=== PATIENT | male | born 1990 | race Hispanic/Latino ===

== ENCOUNTER 2017-12-27 14:51 | Emergency (ER) | payer SELFPAY ==
--- NOTE | 2017-12-27 15:53 | RAD REPORT ---
EXAM DESCRIPTION: RAD - Chest Single View - 12/27/2017 3:48 pm CLINICAL HISTORY: Chest pain. COMPARISON: None. FINDINGS: Portable technique limits examination quality. The lungs are grossly clear. The heart is normal in size. No displaced fractures. IMPRESSION: No acute intrathoracic process suspected.
[2017-12-27] MEDS ORDERED: METOCLOPRAMIDE 10 MG/2mL INJ ONE (15:56)
[2017-12-27] MEDS ORDERED: NA CHLORIDE 0.9% 1,000 ML ONE (15:56)
[2017-12-27] MEDS ORDERED: KETOROLAC 30 MG/ML INJ ONE (15:56)
[2017-12-27] MEDS ORDERED: DIPHENHYDRAMINE 50 MG/ML VIAL ONE (15:56)
[2017-12-27 15:59] LABS: Absolute Lymphocytes (CBC) 2.6 K/uL (0.7-4.9); Absolute Monocytes 0.5 K/uL (0.1-1.3); Absolute Neutrophil 2.8 K/uL (1.8-8.0); Basophils % 0.1 % (0-1.3); Hematocrit 36.3 % (39.6-49.0); Lymphocytes % 42.5 % (15.3-44.8); MCH 30.2 pg (27.0-35.0); MCV 89.1 fL (80-100); MPV 9.4 fL (7.6-11.3); Monocytes % 7.7 % (3.3-12.3); RBC Red Blood Cell Count 4.08 M/uL (4.33-5.43)
[2017-12-27 16:01] LABS: Glomerular Filtration Rate > 60 mL/min (>60)
[2017-12-27 16:13] LABS: Bicarbonate 23 mEq/L (21-31); Glucose Level 92 mg/dL (65-120); Lipase 25 U/L (22-51); Potassium 3.8 mEq/L (3.6-5.0); Sodium Level 132 mEq/L (135-145)
[2017-12-27 16:19] LABS: ALT/SGPT 35 IU/L (10-60); AST/SGOT 27 IU/L (10-42); Albumin 3.6 g/dL (3.2-5.5); Alkaline Phosphatase 42 IU/L (42-121); Amylase Level 46 U/L (28-100); BUN Blood Urea Nitrogen 25 mg/dL (6-20); Bilirubin Direct < 0.1 mg/dL (0-0.2); Bilirubin Total 0.5 mg/dL (0.3-1.2); Glomerular Filtration Rate > 90 mL/min (=/>90); Protein, Total 6.5 g/dL (6.0-8.3)
[2017-12-27 16:41] LABS: Urine Bacteria NONE SEEN /HPF (NONE SEEN); Urine Culture Reflex Order NOT NEEDED; Urine Mucus LIGHT /HPF (NONE SEEN); Urine RBC <5 /HPF (NONE SEEN)
--- NOTE | 2017-12-27 16:54 | RAD REPORT ---
EXAM DESCRIPTION: CT - Chest Abdomen Pelvis W Cont - 12/27/2017 4:39 pm CLINICAL HISTORY: Right-sided chest pain, right-sided abdomen pain COMPARISON: None. TECHNIQUE: Following dynamic enhancement using 100 milliliters nonionic IV contrast, axial imaging o f the chest, abdomen and pelvis was performed. Biphasic technique was utilized through the abdomen. Oral contrast was administered. All CT scans are performed using dose optimization technique as appropriate and may include automated exposure control or mA/KV adjustment according to patient size. FINDINGS: Lungs are clear of mass and infiltrate. No pleural effusion, pleural thickening or pneumot horax. No significant aortic or pulmonary arterial tree finding. Mediastinal and hilar regions show n o mass or abnormal lymphadenopathy. No chest wall mass or axillary lymphadenopathy. Liver shows borderline fatty infiltration pattern. No focal liver lesion identifiable. No spleen or p ancreas abnormality. Gallbladder is partially contracted. Gallstones can be occult. No biliary tree d ilatation. Symmetric renal function is seen with no mass or hydronephrosis. No adrenal abnormalities. No dilated bowel loops or focal bowel wall thickening. No acute GI findings seen. Patient has a few s mall subcentimeter mesenteric lymph nodes. Appendix is normal. No urinary bladder abnormality. No acute or destructive bony process. No significant vascular findings. IMPRESSION: CT chest, abdomen and pelvis imaging shows no significant or suspicious finding.
--- NOTE | 2017-12-27 17:44 | ER ---
Nurse's Notes [facility] Name: Neftali Miles Age: 27 yrs Sex: Male : 1990 Arrival Date: 12/27/2017 Time: 14:53 Bed 23 Private MD: Diagnosis: right flank pain;Other abdominal pain Presentation: 12/27 14:57 Presenting complaint: Patient states: right lower back/flank pain since this morning la1 denies N/V/D. Pt states this has been going on, on and off for the last few months. Transition of care: patient was not received from another setting of care. Onset of symptoms was December 27, 2017. Care prior to arrival: None. 14:57 Method Of Arrival: Ambulatory la1 14:57 Acuity: DEVAN 3 la1 Historical: - Allergies: 14:57 No Known Allergies; la1 - PMHx: 14:57 None; la1 - Immunization history:: Adult Immunizations up to date. - Social history:: Smoking status: Patient/guardian denies using tobacco. Screenin:51 Abuse screen: Denies threats or abuse. Denies injuries from another. Nutritional aj screening: No deficits noted. Tuberculosis screening: No symptoms or risk factors identified. Fall Risk None identified. Assessment: 15:51 General: Appears in no apparent distress. comfortable, Behavior is calm, cooperative, aj appropriate for age. Pain: Complains of pain in back and right mid back. Neuro: Level of Consciousness is awake, alert, obeys commands, Oriented to person, place, time, situation. Respiratory: Airway is patent Respiratory effort is even, unlabored, Respiratory pattern is regular, symmetrical. GI: No signs and/or symptoms were reported involving the gastrointestinal system. Abdomen is non-distended, obese. Derm: Skin is intact, is healthy with good turgor, Skin is pink, warm \T\ dry. normal. Musculoskeletal: Circulation, motion, and sensation intact. Range of motion: intact in all extremities, Reports pain in right mid back. 18:29 Reassessment: Patient appears in no apparent distress at this time. No changes from aj previously documented assessment. Patient and/or family updated on plan of care and expected duration. Pain level reassessed. Patient is alert, oriented x 3, equal unlabored respirations, skin warm/dry/pink. Patient states feeling better. Patient states symptoms have improved. Vital Signs: 14:57 BP 124 / 72; Pulse 64; Resp 16; Temp 97.3(TE); Pulse Ox 100% on R/A; Weight 109.32 kg; la1 Height 6 ft. 0 in. (182.88 cm); 15:51 BP 128 / 62; Pulse 50; Resp 16; Pulse Ox 99% on R/A; aj 16:08 BP 132 / 86; Pulse 49; Resp 16; Pulse Ox 99% on R/A; aj 16:19 BP 128 / 59; Pulse 51; Resp 16; Pulse Ox 99% on R/A; aj 17:55 BP 118 / 92; Pulse 54; Resp 16; Pulse Ox 100% on R/A; aj 14:57 Body Mass Index 32.69 (109.32 kg, 182.88 cm) la1 ED Course: 14:53 Patient arrived in ED. tw3 14:57 Triage completed. la1 14:58 Lynda Sow NP is PHCP. 1 14:58 Khris Valles MD is Attending Physician. 1 14:58 Arm band placed on left wrist. la1 15:08 Bren Can, RN is Primary Nurse. aj 15:21 Radiology exam delayed due to lab results not completed at this time. (BUN/Creatinine) jg1 IV insertion attempt and/or patient not having appropriate IV at this time. 15:48 X-ray completed. Portable x-ray completed in exam room. Patient tolerated procedure bb2 well. 15:49 Chest Single View XRAY In Process Unspecified. EDMS 15:51 Patient has correct armband on for positive identification. Placed in gown. Bed in low aj position. Call light in reach. Side rails up X 1. Pulse ox on. NIBP on. 15:51 Inserted saline lock: 20 gauge in right antecubital area, using aseptic technique. aj Blood collected. 16:39 Chest Abdomen Pelvis W Cont In Process Unspecified. EDMS 18:29 No provider procedures requiring assistance completed. IV discontinued, intact, aj bleeding controlled, No redness/swelling at site. Pressure dressing applied. Administered Medications: No medications were administered Outcome: 17:44 Discharge ordered by . 1 18:29 Discharged to home ambulatory. aj 18:29 Condition: good 18:29 Discharge instructions given to patient, Instructed on discharge instructions, follow up and referral plans. Demonstrated understanding of instructions, follow-up care. 18:37 Patient left the ED. jamari Signatures: Dispatcher [employer] EDBren Shukla RN RN aj Garcia, Jessica jg1 Attema, Lee, RN RN la1 Lynda Sow, SENIOR ADULTS DIRECTOR SENIOR ADULTS DIRECTOR rh1 Jose Roberto, Mary tw3 Stacie Wolfe bb2 Corrections: (The following items were deleted from the chart) 14:58 14:57 Presenting complaint: Patient states: right lower back/flank pain since this la1 morning denies N/V/D la1
--- NOTE | 2017-12-27 17:45 | EDPHYS ---
Physician Documentation [facility] Name: Neftali Miles Age: 27 yrs Sex: Male : 1990 Arrival Date: 12/27/2017 Time: 14:53 Bed 23 Private MD: ED Physician Khris Valles HPI: 12/27 15:07 This 27 yrs old Male presents to ER via Ambulatory with complaints of Side rh1 Pain. 15:07 The patient complains of pain in the right mid back. The pain does not radiate. Onset: rh1 The symptoms/episode began/occurred 2 month(s) ago, and became worse today. Modifying factors: The symptoms are alleviated by nothing. the symptoms are aggravated by nothing. Associated signs and symptoms: Pertinent negatives: diarrhea, dizziness, dysuria, fever, urinary frequency, hematuria, nausea, pain radiating to the lower extremities, vomiting. Severity of pain: At its worst the pain was moderate in the emergency department the pain is unchanged. The patient has not experienced similar symptoms in the past. The patient has not recently seen a physician. PT. reports intermittent right flank pain ongoing for the past 2 months, that got worse today while at work. Reports pain increases with deep inspiration, and at times will make him dizzy. Reports no change in pain with movement, foods, denies any N/V/D, fever/chills, coughing, chest pain.. Historical: - Allergies: 14:57 No Known Allergies; la1 - PMHx: 14:57 None; la1 - Immunization history:: Adult Immunizations up to date. - Social history:: Smoking status: Patient/guardian denies using tobacco. ROS: 15:07 Constitutional: Negative for fever, chills rh1 15:07 Cardiovascular: Negative for chest pain, edema, palpitations. 15:07 Respiratory: Negative for cough, shortness of breath, wheezing. 15:07 Abdomen/GI: Negative for abdominal pain, nausea, vomiting, and diarrhea. 15:07 Back: Positive for pain at rest, flank pain, on the right, Negative for decreased range of motion, pain with movement. 15:07 : Negative for urinary symptoms, small amounts, hematuria. 15:07 MS/extremity: Negative for pain, paresthesias. 15:07 Neuro: Negative for altered mental status, dizziness, numbness, tingling, weakness. 15:07 All other systems are negative. Exam: 15:07 Constitutional: This is a well developed, well nourished patient who is awake, alert, rh1 and in no acute distress. Head/Face: Normocephalic, atraumatic. Neck: Trachea midline, and no cervical lymphadenopathy. Supple, full range of motion without nuchal rigidity. No Meningismus. Chest/axilla: Normal chest wall appearance and motion. Nontender with no deformity. No lesions are appreciated. Cardiovascular: Regular rate and rhythm with a normal S1 and S2. No gallops, murmurs, or rubs. No JVD. No pulse deficits. Respiratory: Lungs have equal breath sounds bilaterally, clear to auscultation. No rales, rhonchi or wheezes noted. No increased work of breathing. 15:07 Skin: Warm, dry with normal turgor. Normal color with no rashes, no lesions, and no evidence of cellulitis. MS/ Extremity: Pulses equal, no cyanosis. Neurovascular intact. Full, normal range of motion. 15:07 Abdomen/GI: Inspection: abdomen appears normal, bruising, is not seen, distension, is not seen, Bowel sounds: normal, in all quadrants, active, all quadrants, Palpation: soft, in all quadrants, moderate abdominal tenderness, in the epigastric area, right upper quadrant and left upper quadrant, rebound tenderness, is not appreciated, involuntary guarding, is not appreciated, Indicators: McBurney's point is not tender, Arreola's sign is negative, Rovsing's sign is negative, Liver: no appreciated palpable abnormalities. 15:07 Back: ROM is normal, painless, CVA tenderness, that is moderate, is noted on the right. 15:07 Back: Exam negative for ecchymosis 15:07 Neuro: Orientation: is normal, to person, place \T\ time. Mentation: is normal, lucid, able to follow commands, Motor: is normal, moves all fours, strength is 5/5 in all extremities, Sensation: is normal, no obvious gross deficits, numbness, is not appreciated, tingling, is not appreciated, Gait: is steady, at a normal pace, without difficulty. Vital Signs: 14:57 BP 124 / 72; Pulse 64; Resp 16; Temp 97.3(TE); Pulse Ox 100% on R/A; Weight 109.32 kg; la1 Height 6 ft. 0 in. (182.88 cm); 15:51 BP 128 / 62; Pulse 50; Resp 16; Pulse Ox 99% on R/A; aj 16:08 BP 132 / 86; Pulse 49; Resp 16; Pulse Ox 99% on R/A; aj 16:19 BP 128 / 59; Pulse 51; Resp 16; Pulse Ox 99% on R/A; aj 17:55 BP 118 / 92; Pulse 54; Resp 16; Pulse Ox 100% on R/A; aj 14:57 Body Mass Index 32.69 (109.32 kg, 182.88 cm) la1 MDM: 15:07 Patient medically screened. rh1 17:43 Data reviewed: vital signs, nurses notes, lab test result(s), EKG, radiologic studies, rh1 CT scan, plain films, I have discussed the patient's presentation/case with the attending Emergency Department Physician; and as a result, I will discharge patient. Data interpreted: Pulse oximetry: on room air is 99 %. Interpretation: normal. Counseling: I had a detailed discussion with the patient and/or guardian regarding: the historical points, exam findings, and any diagnostic results supporting the discharge/admit diagnosis, lab results, radiology results, the need for outpatient follow up, a family practitioner, to return to the emergency department if symptoms worsen or persist or if there are any questions or concerns that arise at home. Special discussion: Based on the patient's Hx, exam, and Dx evaluation, there is no indication for emergent surgery or inpatient Tx. It is understood by the patient/guardian that if the Sx's persist or worsen they need to return immediately for re-evaluation. 12/27 15:19 Order name: Amylase, Serum; Complete Time: 16:25 12/27 15:19 Order name: Basic Metabolic Panel; Complete Time: 16:25 12/27 15:19 Order name: CBC with Diff; Complete Time: 16:28 12/27 15:19 Order name: Creatinine for Radiology; Complete Time: 16:04 12/27 15:19 Order name: Hepatic Function; Complete Time: 16:25 12/27 15:19 Order name: Lipase; Complete Time: 16:25 12/27 15:19 Order name: Urine Dipstick-Ancillary (obtain specimen); Complete Time: 16:08 [facility] 12/27 15:19 Order name: Urine Microscopic Only; Complete Time: 16:47 1 12/27 15:19 Order name: Chest Single View XRAY; Complete Time: 15:57 [facility] 12/27 15:56 Order name: Urine Dipstick--Ancillary (enter results); Complete Time: 18:23 mw2 12/27 16:33 Order name: Chest Abdomen Pelvis W Cont; Complete Time: 16:57 EDMS 12/27 17:24 Order name: EKG Electrocardiogram [facility] 12/27 15:19 Order name: IV Saline Lock; Complete Time: 15:53 [facility] 12/27 15:19 Order name: Labs collected and sent; Complete Time: 15:54 [facility] 12/27 15:21 Order name: EKG - Nurse/Tech; Complete Time: 16:19 rh1 Administered Medications: No medications were administered Disposition: 12/27/17 17:44 Discharged to Home. Impression: right flank pain, Other abdominal pain. - Condition is Stable. - Discharge Instructions: Abdominal Pain, Adult, Flank Pain. - Work release form, Medication Reconciliation Form, Thank You Letter, Antibiotic Education, Prescription Opioid Use form. - Follow up: Private Physician; When: 1 - 2 days; Reason: Recheck today's complaints, Continuance of care, Re-evaluation by your physician. Follow up: Emergency Department; When: As needed; Reason: Fever > 102 F, If symptoms return, Trouble breathing, Worsening of condition. - Problem is new. - Symptoms have improved. Addendum: 12/30/2017 07:53 Co-signature as Attending Physician, Khris Valles MD I agree with the assessment and w a plan of care. Signatures: Dispatcher [employer] EDBren Shukla RN RN aj Attema, Lee, RN RN la1 Lynda Sow, RESTAURANT HOSTESS RESTAURANT HOSTESS [facility] Khris Valles MD MD pr Corrections: (The following items were deleted from the chart) 12/27 15:23 15:07 PT. reports intermittent right flank pain ongoing for the past 2 months, that got rh1 worse today while at work. . 1 16:33 15:19 Abdomen Pelvis W Con+CT.RAD.BRZ ordered. EDMS EDMS 16:33 16:26 Thorax W/ Con+CT.RAD.BRZ ordered. EDMS EDMS
[2017-12-27 18:11] LABS: Urine Blood NEGATIVE (NEG); Urine Glucose NEGATIVE (NEG); Urine Protein NEGATIVE (NEG); Urine Specific Gravity >1.030 (1.005-1.030); Urine pH 5.5 (5.0-7.0)
--- NOTE | 2017-12-29 22:42 | EKG ---
Test Date: 2017-12-27 Test Time: 16:14:34 Bpo Specialist: ARM MEASUREMENT RESULTS: Intervals: Rate: 52 MD: 164 QRSD: 90 QT: 470 QTc: 437 Babbitt: P: 52 MD: 164 QRS: 62 T: 35 INTERPRETIVE STATEMENTS: Sinus bradycardia ST elevation, consider early repolarization, pericarditis, or injury T wave abnormality, consider anterior ischemia Abnormal ECG No previous ECG available for comparison Electronically Signed On 12-29-17 22:41:16 CDT by Scott Cabrera
== END 2017-12-27 18:37 | disposition home or self-care (01) ==
LOC: ER 14:51
DX: R10.9 Unspecified abdominal pain (principal)
CPT/HCPCS: 36415; 71045; 71260; 74177; 80048; 80076; 81003; 81015; 82150; 83690; 85025; 93005; 99284; J2765; J7030; Q9967

== ENCOUNTER 2018-07-02 07:43 | Emergency (ER) | payer SELFPAY ==
[2018-07-02 08:15] LABS: Absolute Lymphocytes (CBC) 1.6 K/uL (0.7-4.9); Absolute Monocytes 0.4 K/uL (0.1-1.3); Absolute Neutrophil 3.3 K/uL (1.8-8.0); Basophils % 0.3 % (0-1.3); Eosinophils % 3.7 % (0-4.4); Hematocrit 42.4 % (39.6-49.0); Lymphocytes % 28.5 % (15.3-44.8); MCH 30.4 pg (27.0-35.0); MCV 90.8 fL (80-100); MPV 9.3 fL (7.6-11.3); Monocytes % 7.3 % (3.3-12.3); RBC Red Blood Cell Count 4.67 M/uL (4.33-5.43)
[2018-07-02 08:24] LABS: BUN Blood Urea Nitrogen 20 mg/dL (7-18); Bicarbonate 27 mmol/L (21-32); Glucose Level 113 mg/dL (74-106); Sodium Level 142 mmol/L (136-145)
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
[2018-07-02] MEDS ORDERED: HYDROCODONE/APAP 7.5/325 MG TAB ONE (09:22)
== END 2018-07-02 09:24 | disposition home or self-care (01) ==
LOC: ER 07:43
DX: M25.552 Pain in left hip (principal); M25.551 Pain in right hip; V49.50XA Passenger injured in collision with unspecified motor vehicles in traffic accident, initial encounter
CPT/HCPCS: 36415; 70450; 71260; 72125; 74177; 80048; 85025; Q9967

== ENCOUNTER 2019-11-05 17:02 | Emergency (ER) | payer SELFPAY ==
[2019-11-05 17:50] LABS: Basophils % 0.2 % (0-1.3); Hematocrit 37.6 % (39.6-49.0); Lymphocytes % 34.9 % (15.3-44.8); MPV 8.9 fL (7.6-11.3); RBC Red Blood Cell Count 4.16 M/uL (4.33-5.43)
--- NOTE | 2019-11-05 17:50 | RAD REPORT ---
EXAM DESCRIPTION: CT - Head Brain Wo Cont - 11/05/2019 5:38 pm CLINICAL HISTORY: Pain;Weakness Headache, drowsiness COMPARISON: No comparisons TECHNIQUE: All CT scans are performed using dose optimization technique as appropriate and may inclu de automated exposure control or mA/KV adjustment according to patient size. FINDINGS: No intracranial hemorrhage, hydrocephalus or extra-axial fluid collection.No areas of brai n edema or evidence of midline shift. The paranasal sinuses and mastoids are clear. The calvarium is intact. IMPRESSION: No acute intracranial abnormality.
[2019-11-05 17:51] LABS: Protime INR 1.07
--- NOTE | 2019-11-05 18:01 | RAD REPORT ---
EXAM DESCRIPTION: RAD - Chest Single View - 11/05/2019 5:54 pm CLINICAL HISTORY: Chest pain;Dyspnea Chest pain. COMPARISON: Chest Single View dated 12/27/2017 FINDINGS: Portable technique limits examination quality. The lungs are grossly clear. The heart is normal in size. No displaced fractures. IMPRESSION: No acute intrathoracic process suspected.
[2019-11-05 18:05] LABS: ALT/SGPT 73 U/L (12-78); AST/SGOT 33 U/L (15-37); Albumin 2.9 g/dL (3.4-5.0); Alkaline Phosphatase 49 U/L (45-117); BUN Blood Urea Nitrogen 20 mg/dL (7-18); Bicarbonate 24 mmol/L (21-32); Bilirubin Direct 0.2 mg/dL (0-0.2); Bilirubin Total 0.5 mg/dL (0.2-1.0); Creatine Phosphokinase 153 U/L (39-308); Glucose Level 107 mg/dL (74-106); NT PRO-BNP 91 pg/mL (<125); Potassium 3.8 mmol/L (3.5-5.1); Protein, Total 6.9 g/dL (6.4-8.2); Sodium Level 142 mmol/L (136-145); Troponin (Emerg Dept Use Only) < 0.02 ng/mL (0.0-0.045)
[2019-11-05] MEDS ORDERED: NA CHLORIDE 0.9% 1,000 ML ONE (18:26)
--- NOTE | 2019-11-05 18:53 | EDPHYS ---
Physician Documentation [facility] Name: Neftali Miles Age: 29 yrs Sex: Male : 1990 Arrival Date: 11/05/2019 Time: 17:05 Bed 26 Private MD: ED Physician Alessandro Leon HPI: 11/05 17:48 This 29 yrs old Male presents to ER via Ambulatory with complaints of Right jr8 side body pain. 18:03 Patient stated that he started to have acute onset of right sided body pain. 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 Severity of symptoms: At their worst the symptoms were moderate in the emergency department the symptoms are unchanged. The patient has not experienced similar symptoms in the past. The patient has not recently seen a physician. Historical: - Allergies: 17:10 No Known Allergies; tw2 - Home Meds: 17:10 None [Active]; tw2 - PMHx: 17:10 None; tw2 - PSHx: 17:10 None; tw2 - Immunization history:: Adult Immunizations. - Coronavirus screen:: The patient HAS traveled to [place] in the past 14 days. The patient does NOT have a fever and/or cough. Proceed with normal triage procedures. went to [facility]. - Social history:: Smoking status: Patient denies any tobacco usage or history of. - Ebola Screening: : Patient denies travel to an Ebola-affected area in the 21 days before illness onset. ROS: 18:03 Eyes: Negative for injury, pain, redness, and discharge, ENT: Negative for injury, jr8 pain, and discharge, Neck: Negative for injury, pain, and swelling, Cardiovascular: Negative for chest pain, palpitations, and edema, Respiratory: Negative for shortness of breath, cough, wheezing, and pleuritic chest pain, Abdomen/GI: Negative for abdominal pain, nausea, vomiting, diarrhea, and constipation, Back: Negative for injury and pain, Skin: Negative for injury, rash, and discoloration. 18:03 Neuro: Negative for headache, weakness, numbness, tingling, and seizure. 18:03 MS/extremity: Positive for pain, of the right hand, right arm and right leg. Exam: 18:06 Head/Face: Normocephalic, atraumatic. Eyes: Pupils equal round and reactive to light, jr8 extra-ocular motions intact. Lids and lashes normal. Conjunctiva and sclera are non-icteric and not injected. Cornea within normal limits. Periorbital areas with no swelling, redness, or edema. ENT: Nares patent. No nasal discharge, no septal abnormalities noted. Tympanic membranes are normal and external auditory canals are clear. Oropharynx with no redness, swelling, or masses, exudates, or evidence of obstruction, uvula midline. Mucous membranes moist. Neck: Trachea midline, no thyromegaly or masses palpated, and no cervical lymphadenopathy. Supple, full range of motion without nuchal rigidity, or vertebral point tenderness. No Meningismus. Chest/axilla: Normal chest wall appearance and motion. Nontender with no deformity. No lesions are appreciated. Cardiovascular: Regular rate and rhythm with a normal S1 and S2. No gallops, murmurs, or rubs. Normal PMI, no JVD. No pulse deficits. Respiratory: Lungs have equal breath sounds bilaterally, clear to auscultation and percussion. No rales, rhonchi or wheezes noted. No increased work of breathing, no retractions or nasal flaring. Abdomen/GI: Soft, non-tender, with normal bowel sounds. No distension or tympany. No guarding or rebound. No evidence of tenderness throughout. Back: No spinal tenderness. No costovertebral tenderness. Full range of motion. Skin: Warm, dry with normal turgor. Normal color with no rashes, no lesions, and no evidence of cellulitis. Neuro: Awake and alert, GCS 15, oriented to person, place, time, and situation. Cranial nerves II-XII grossly intact. Motor strength 5/5 in all extremities. Sensory grossly intact. Cerebellar exam normal. Normal gait. 18:06 Musculoskeletal/extremity: Extremities: grossly normal except: noted in the right arm: pain, tenderness, noted in the right leg: pain, tenderness, ROM: no acute changes, intact in all extremities, full active range of motion, full passive range of motion, Circulation is intact in all extremities. Pulses: noted to be 2+ in the right radial artery, right femoral artery, right dorsalis pedis artery, left radial artery, left femoral artery and left dorsalis pedis artery, Sensation intact. 18:10 ECG was reviewed by the Attending Physician. jr8 Vital Signs: 17:11 BP 124 / 88; Pulse 88; Resp 17; Temp 97.6(TE); Pulse Ox 98% on R/A; Weight 113.4 kg tw2 (R); Height 6 ft. 1 in. (185.42 cm); Pain 5/10; 18:00 BP 116 / 78; Pulse 71; Resp 17; Pulse Ox 100% on R/A; mg2 19:21 BP 115 / 78; Pulse 80; Resp 18; Temp 98; Pulse Ox 100% on R/A; mg2 17:11 Body Mass Index 32.98 (113.40 kg, 185.42 cm) tw2 MDM: 17:13 Patient medically screened. jr8 18:49 Data reviewed: vital signs, nurses notes, lab test result(s), EKG, radiologic studies, jr8 CT scan, plain films. Data interpreted: Pulse oximetry: on room air is 98 %. Interpretation: normal. Counseling: I had a detailed discussion with the patient and/or guardian regarding: the historical points, exam findings, and any diagnostic results supporting the discharge/admit diagnosis, lab results, radiology results, the need for outpatient follow up, a family practitioner, to return to the emergency department if symptoms worsen or persist or if there are any questions or concerns that arise at home. Response to treatment: the patient's symptoms have mildly improved after treatment. ED course: No abnormal CT, lab, or ECG findings. VS stable. Most likely fatigue secondary to over exertion at work. Recommended few days of rest with continued hydration. If other symptoms were to arise or he was feeling worse. To come back to ED immediately . 11/05 17:25 Order name: Basic Metabolic Panel; Complete Time: 18:11/05 17:25 Order name: CBC with Diff; Complete Time: 18:11/05 17:25 Order name: LFT's; Complete Time: 18:11/05 17:25 Order name: Magnesium; Complete Time: 18:11/05 17:25 Order name: NT PRO-BNP; Complete Time: 18:11/05 17:25 Order name: PT-INR; Complete Time: 18:11/05 17:25 Order name: Troponin (emerg Dept Use Only); Complete Time: 18:11/05 17:25 Order name: XRAY Chest (1 view); Complete Time: 19:11/05 17:25 Order name: EKG; Complete Time: 17:11/05 17:25 Order name: Cardiac monitoring; Complete Time: :11/05 17:25 Order name: EKG - Nurse/Tech; Complete Time: 18:11/05 17:25 Order name: CK; Complete Time: 18:11/05 17:25 Order name: CT Head Brain wo Cont; Complete Time: 19:11/05 17:25 Order name: IV Saline Lock; Complete Time: :39 11/05 17:25 Order name: Labs collected and sent; Complete Time: 17:37 11/05 17:25 Order name: O2 Per Protocol; Complete Time: :11/05 17:25 Order name: O2 Sat Monitoring; Complete Time: : EC:10 Rate is 63 beats/min. Rhythm is regular, Normal Sinus Rhythm. QRS [place] is Normal. [place] jr8 interval is normal at 166 msec. QRS interval is normal at 90 msec. QT interval is normal at 442 msec. No Q waves. T waves are Inverted in lead V1. T waves are Flattened in leads II, V2, V3. No ST changes noted. Clinical impression: NSR w/ Non-specific ST/T Changes and No evidence of ischemia. Interpreted by me. Reviewed by me. Administered Medications: 18:17 Drug: NS 0.9% 1000 ml Route: IV; Rate: 1000 ml; Site: left forearm; mg2 19:21 Follow up: Response: No adverse reaction; IV Status: Completed infusion; IV Intake: mg2 1000ml Disposition: 11/06 07:08 Co-signature as Attending Physician, Alessandro Leon MD I agree with the assessment and kdr plan of care. Disposition: 11/05/19 18:52 Discharged to Home. Impression: Dehydration, Pain in arm, unspecified, Pain in right lower leg. - Condition is Stable. - Discharge Instructions: Dehydration, Adult, Musculoskeletal Pain. - Prescriptions for Ibuprofen 800 mg Oral Tablet - take 1 tablet by ORAL route every 12 hours As needed take with food; 20 tablet. - Medication Reconciliation Form, Thank You Letter, Antibiotic Education, Prescription Opioid Use, Work release form form. - Follow up: Private Physician; When: 2 - 3 days; Reason: Recheck today's complaints, Continuance of care, Re-evaluation by your physician. - Problem is new. - Symptoms have improved. Signatures: Dispatcher [employer] EDMS Alessandro Leon MD MD kdr Ron Frances PA PA jr8 Leila Ly RN RN tw2 Lars Joe RN RN mg2 Corrections: (The following items were deleted from the chart) 11/05 19:23 18:52 11/05/2019 18:52 Discharged to Home. Impression: Dehydration; Pain in arm, mg2 unspecified; Pain in right lower leg. Condition is Stable. Forms are Medication Reconciliation Form, Thank You Letter, Antibiotic Education, Prescription Opioid Use. Follow up: Private Physician; When: 2 - 3 days; Reason: Recheck today's complaints, Continuance of care, Re-evaluation by your physician. Problem is new. Symptoms have improved. jr8
--- NOTE | 2019-11-05 18:53 | ER ---
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 Presenting complaint: Patient states: also my right ear hurts and the right side of my head i have shortness of breath just putting on my clothes and that hasnt happened. Transition of care: patient was not received from another setting of care. Onset of symptoms was November 05, 2019. Risk Assessment: Do you want to hurt yourself or someone else? Patient reports no desire to harm self or others. Initial Sepsis Screen: Does the patient meet any 2 criteria? No. Patient's initial sepsis screen is negative. Does the patient have a suspected source of infection? No. Patient's initial sepsis screen is negative. Care prior to arrival: None. 17:08 Method Of Arrival: Ambulatory tw2 17:08 Acuity: DEVAN 3 mg2 Triage Assessment: 17:11 General: Appears in no apparent distress. obese, Behavior is calm, cooperative, tw2 appropriate for age. Pain: Complains of pain in right side of body. Historical: - Allergies: 17:10 No Known Allergies; tw2 - Home Meds: 17:10 None [Active]; tw2 - PMHx: 17:10 None; tw2 - PSHx: 17:10 None; tw2 - Immunization history:: Adult Immunizations. - Coronavirus screen:: The patient HAS traveled to [place] in the past 14 days. The patient does NOT have a fever and/or cough. Proceed with normal triage procedures. went to [facility]. - Social history:: Smoking status: Patient denies any tobacco usage or history of. - Ebola Screening: : Patient denies travel to an Ebola-affected area in the 21 days before illness onset. Screenin:43 Abuse screen: Denies threats or abuse. Denies injuries from another. Nutritional mg2 screening: No deficits noted. Tuberculosis screening: No symptoms or risk factors identified. Fall Risk IV access (20 points). Assessment: 17:44 General: Appears in no apparent distress. comfortable, Behavior is calm, cooperative. mg2 Pain: Complains of pain in right side of the body. Neuro: Level of Consciousness is awake, alert, obeys commands, Oriented to person, place, time, situation. Cardiovascular: Capillary refill < 3 seconds Patient's skin is warm and dry. Respiratory: Airway is patent Respiratory effort is even, unlabored, Respiratory pattern is regular, symmetrical. GI: No signs and/or symptoms were reported involving the gastrointestinal system. : No signs and/or symptoms were reported regarding the genitourinary system. EENT: No signs and/or symptoms were reported regarding the EENT system. Derm: Skin is intact, is healthy with good turgor, Skin is pink, warm \T\ dry. normal. Musculoskeletal: Circulation, motion, and sensation intact. Capillary refill < 3 seconds. Vital Signs: 17:11 BP 124 / 88; Pulse 88; Resp 17; Temp 97.6(TE); Pulse Ox 98% on R/A; Weight 113.4 kg tw2 (R); Height 6 ft. 1 in. (185.42 cm); Pain 5/10; 18:00 BP 116 / 78; Pulse 71; Resp 17; Pulse Ox 100% on R/A; mg2 19:21 BP 115 / 78; Pulse 80; Resp 18; Temp 98; Pulse Ox 100% on R/A; mg2 17:11 Body Mass Index 32.98 (113.40 kg, 185.42 cm) tw2 ED Course: 17:05 Patient arrived in ED. mr 17:09 Triage completed. tw2 17:10 Arm band placed on. tw2 17:12 Ron Frances PA is PHCP. jr8 17:12 Alessandro Leon MD is Attending Physician. jr8 17:23 Lars Joe, TRAVIS is Primary Nurse. mg2 17:41 CT Head Brain wo Cont In Process Unspecified. EDMS 17:43 No provider procedures requiring assistance completed. Inserted saline lock: 20 gauge mg2 in left forearm, using aseptic technique. Blood collected. 17:44 Patient has correct armband on for positive identification. mg2 17:55 XRAY Chest (1 view) In Process Unspecified. EDMS 19:23 IV discontinued, intact, bleeding controlled, No redness/swelling at site. Pressure mg2 dressing applied. Administered Medications: 18:17 Drug: NS 0.9% 1000 ml Route: IV; Rate: 1000 ml; Site: left forearm; mg2 19:21 Follow up: Response: No adverse reaction; IV Status: Completed infusion; IV Intake: mg2 1000ml Intake: 19:21 IV: 1000ml; Total: 1000ml. mg2 Outcome: 18:52 Discharge ordered by MD. barker 19:22 Discharged to home ambulatory, with family. mg2 19:22 Condition: stable 19:22 Discharge instructions given to patient, family, Instructed on discharge instructions, follow up and referral plans. medication usage, Demonstrated understanding of instructions, follow-up care, medications, Prescriptions given X 1. 19:23 Patient left the ED. mg2 Signatures: Dispatcher [employer] EDMS Mirta Beltran mr Juan DanielRon PA PA jr8 Leila Ly RN RN tw2 Lars Joe RN RN mg2 Corrections: (The following items were deleted from the chart) 17:24 17:08 Acuity: DEVAN 4 tw2 mg2
[2019-11-05 19:30] VITALS: O2SAT 100
[2019-11-05 19:32] VITALS: BP 115/78; TEMP 98
--- NOTE | 2019-11-06 07:51 | EKG ---
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
== END 2019-11-05 19:23 | disposition home or self-care (01) ==
LOC: ER 17:02
DX: E86.0 Dehydration (principal); M79.661 Pain in right lower leg
CPT/HCPCS: 36415; 70450; 71045; 80048; 80076; 82550; 83735; 83880; 84484; 85025; 85610; 93005; 96360; 99284; J7030

== ENCOUNTER 2024-06-28 22:38 | Observation (INO) | payer OTHER, SELFPAY ==
[2024-06-28] MEDS ORDERED: ONDANSETRON 4 MG/2 ML VIAL ONE (23:27)
[2024-06-28] MEDS ORDERED: MORPHINE 4 MG/ML SYR ONE (23:28)
[2024-06-28] MEDS ORDERED: NA CHLORIDE 0.9% 100 ML ONE (23:28)
[2024-06-28] MEDS ORDERED: PIPERACIL/TAZO 3.375 GM VIAL IV ONE (23:28)
[2024-06-28] MEDS ORDERED: FAMOTIDINE 20 MG/2 ML VIAL IV ONE (23:28)
[2024-06-28] MEDS ORDERED: NA CHLORIDE 0.9% 1,000 ML ONE (23:29)
[2024-06-28 23:30] LABS: Absolute Basophils 0.1 K/uL (0-0.5); Absolute Eosinophils 0.3 K/uL (0-0.5); Absolute Lymphocytes (CBC) 3.3 K/uL (0.7-4.9); Absolute Monocytes 0.7 K/uL (0.1-1.3); Absolute Neutrophil 7.3 K/uL (1.8-8.0); Basophils % 0.7 % (0-1.3); Eosinophils % 2.4 % (0-4.4); Hematocrit 37.7 % (39.6-49.0); Hemoglobin 12.2 g/dL (13.6-17.9); Lymphocytes % 28.6 % (15.3-44.8); MCHC 32.5 g/dL (32.0-36.0); MCV 92.3 fL (80-100); MPV 9.1 fL (7.6-11.3); Monocytes % 5.9 % (3.3-12.3); Neutrophils % 62.4 % (41.7-73.7); Platelets 289 thou/uL (152-406); RBC Red Blood Cell Count 4.08 M/uL (4.33-5.43); Red Cell Distribution Width 14.1 % (12.1-15.2)
[2024-06-28 23:31] LABS: PT Prothrombin Time 11.9 SECONDS (9.4-12.5); Protime INR 1.06
[2024-06-28 23:43] LABS: Albumin 2.8 g/dL (3.4-5.0); Albumin/Globulin Ratio 0.6 (1.1-1.8); Anion Gap 7.2 mEq/L (5.0-15.0); Bilirubin Total 0.2 mg/dL (0.2-1.0); Globulin 4.9 g/dL (2.3-3.5); Potassium 4.2 mEq/L (3.5-5.1); Protein, Total 7.7 g/dL (6.4-8.2)
--- NOTE | 2024-06-29 00:19 | RAD REPORT ---
CLINICAL HISTORY: Abdominal pain. COMPARISON: None. TECHNIQUE: US ABDOMEN LIMITED 06/28/2024 10:54 PM CDT FINDINGS: Liver is echogenic. Gallbladder contains a gallstone at the neck. There is no wall thickening or mary cholecystic fluid. Common bile duct measures 4 mm. IMPRESSION: Cholelithiasis. Electronically signed by: Pedro Palm MD 06/29/2024 12:14 AM CDT RP Due to temporary technical issues with the PACS/eRelyxibSococo reporting system, reports are being signed by the in-house radiologist without review as a courtesy to ensure prompt reporting the interpreting radiologist is fully responsible for the content of the report. Transcribed Date/Time: 06/29/2024 12:20 AM
--- NOTE | 2024-06-29 00:28 | ER ---
Nurse's Notes [facility] Name: Neftali Miles Age: 33 yrs Sex: Male : 1990 Arrival Date: 06/28/2024 Time: 22:38 Bed 14 Private MD: Diagnosis: Other cholelithiasis with obstruction-stone in the neck;Acute cholecystitis;Elevated white blood cell count;Hyperglycemia, unspecified;Obesity, unspecified Presentation: 06/28 22:51 Chief complaint: Patient states: RUQ abdominal pain onset 6hrs ago. Pt reports nausea cm10 and vomiting. Pt states that the pain is worse when laying on his back. Coronavirus screen: Client denies travel out of the [place] in the last 14 days. Ebola Screen: Patient denies travel to an Ebola-affected area in the 21 days before illness onset. No symptoms or risks identified at this time. Initial Sepsis Screen: Does the patient meet any 2 criteria? No. Patient's initial sepsis screen is negative. Does the patient have a suspected source of infection? No. Patient's initial sepsis screen is negative. Risk Assessment: Do you want to hurt yourself or someone else? Patient reports no desire to harm self or others. Onset of symptoms was June 28, 2024. 22:51 Method Of Arrival: Wheelchair cm10 22:51 Acuity: DEVAN 3 cm10 Triage Assessment: 22:53 General: Appears in no apparent distress. uncomfortable, Behavior is cooperative. Pain: cm10 Complains of pain in right upper quadrant Pain currently is 10 out of 10 on a pain scale. Neuro: No deficits noted. Level of Consciousness is awake, alert, obeys commands, Oriented to person, place, time, situation, Appropriate for age. Respiratory: No deficits noted. Airway is patent Respiratory effort is even, unlabored, Respiratory pattern is regular, symmetrical. Historical: - Allergies: 22:52 No Known Allergies; cm10 - PMHx: 22:52 Fatty liver; Pre-Diabetic; cm10 - Immunization history:: Adult Immunizations up to date. - Infectious Disease History:: Denies. - Social history:: Smoking status: Patient denies any tobacco usage or history of. - Family history:: not pertinent. Screenin:00 [facility] ED Fall Risk Assessment (Adult) History of falling in the last 3 months, kj2 including since admission No falls in past 3 months (0 pts) Confusion or Disorientation No (0 pts) Intoxicated or Sedated No (0 pts) Impaired Gait No (0 pts) Mobility Assist Device Used No (0 pt) Altered Elimination No (0 pt) Score/Fall Risk Level 0 - 2 = Low Risk. Abuse screen: Denies threats or abuse. Denies injuries from another. Nutritional screening: No deficits noted. Tuberculosis screening: No symptoms or risk factors identified. Assessment: 23:00 General: Appears uncomfortable, Behavior is cooperative. Pain: Complains of pain in kj2 abdomen and right upper quadrant Pain currently is 10 out of 10 on a pain scale. Neuro: Level of Consciousness is awake, alert, obeys commands. Cardiovascular: Patient's skin is warm and dry. Respiratory: Airway is patent Respiratory effort is even, unlabored. GI: Reports nausea, vomiting, since 30 minutes ago. : No signs and/or symptoms were reported regarding the genitourinary system. 06/29 01:45 GI: Bowel sounds present X 4 quads. Abdomen is tender to palpation in right upper kj2 quadrant. Vital Signs: 06/28 22:51 BP 100 / 44; Pulse 65; Resp 18; Temp 97.2(O); Pulse Ox 99% on R/A; Weight 140.61 kg; cm10 Height 5 ft. 11 in. ; Pain 06/25; 23:40 BP 111 / 77; Pulse 67; Resp 18; Pulse Ox 100% on R/A; kj2 06/29 00:45 BP 114 / 80; Pulse 62; Resp 18; Pulse Ox 100% on R/A; kj2 01:44 BP 112 / 78; Pulse 64; Resp 18; Temp 98.2; Pulse Ox 100% on R/A; kj2 06/28 22:51 Body Mass Index 43.24 (140.61 kg, 180.34 cm) cm10 06/28 22:51 Pain Scale: Adult cm10 ED Course: 06/28 22:51 Patient arrived in ED. cm10 22:52 Cam Arellano MD is Attending Physician. [facility] 22:52 Triage completed. cm10 22:53 Arm band placed on right wrist. Patient placed in an exam room, on a stretcher. cm10 23:00 Neelam Hsieh, TRAVIS is Primary Nurse. kj2 23:00 Patient has correct armband on for positive identification. Bed in low position. Call kj2 light in reach. Adult w/ patient. Provided Education on: call light. 23:00 Inserted saline lock: 20 gauge in right antecubital area, using aseptic technique. kj2 Blood collected. Flushed with 10 mL NS. 23:47 US Abdomen Limited In Process Unspecified. EDMS 23:52 No provider procedures requiring assistance completed. kj2 06/29 00:16 CT Abd/Pelvis - IV Contrast Only In Process Unspecified. EDMS 00:23 Prince Gilbert MD is Hospitalizing Provider. [facility] 00:30 EKG done, by ED staff, reviewed by Cam Arellano MD. kj2 01:45 Patient admitted, IV remains in place. kj2 Administered Medications: 06/28 23:30 Drug: Ondansetron IVP 4 mg IVP once; over 2 minutes Route: IVP; Site: right antecubital;kj2 06/29 00:47 Follow up: Response: No adverse reaction; Nausea is decreased kj2 06/28 23:32 Drug: morphine IVP or IV 4 mg IVP once over 4 mins Route: IVP; Infused Over: 4 mins; kj2 Site: right antecubital; 06/29 00:47 Follow up: Response: No adverse reaction; Pain is decreased kj2 06/28 23:35 Drug: Famotidine IVP 20 mg IVP once; dilute with 10 mL 0.9% NaCl; give over 2 minutes kj2 Route: IVP; Site: right antecubital; 06/29 00:46 Follow up: Response: No adverse reaction kj2 06/28 23:35 Drug: NS 0.9% IV 1000 ml IV at 1 bolus Per protocol; to be given as a bolus over 60 kj2 minutes Route: IV; Rate: 1 bolus; Site: right antecubital; 06/29 00:48 Follow up: Response: No adverse reaction; IV Status: Completed infusion; IV Intake: kj2 1000ml 06/28 23:42 Drug: Piperacillin-Tazobactam IVPB 3.375 grams IVPB once over 60 mins; (mix in NS 100 kj2 mL) Route: IVPB; Infused Over: 60 mins; Site: right antecubital; 06/29 00:46 Follow up: Response: No adverse reaction; IV Status: Completed infusion; IV Intake: kj2 100ml Medication: 06/28 23:54 VIS not applicable for this client. kj2 Intake: 06/29 00:46 IV: 100ml; Total: 100ml. kj2 00:48 IV: 1000ml; Total: 1100ml. kj2 Outcome: 00:28 Decision to Hospitalize by Provider. gonzalo 01:45 Admitted to Med/surg accompanied by tech, via stretcher, room 230, kj2 01:45 Condition: stable 01:45 Instructed on the need for admit, 01:47 Patient left the ED. kj2 Signatures: Dispatcher [employer] EDCam Mahan MD MD cha Martinez, Clarissa RN RN cm10 Neelam Hsieh, RN RN kj2 Corrections: (The following items were deleted from the chart) 06/28 22:53 22:52 Allergies: Aspirin; cm10 cm10
--- NOTE | 2024-06-29 00:28 | EDPHYS ---
Physician Documentation [facility] Name: Neftali Miles Age: 33 yrs Sex: Male : 1990 Arrival Date: 06/28/2024 Time: 22:38 Bed 14 Private MD: ED Physician Cam Arellano HPI: 06/28 22:55 This 33 yrs old Male presents to ER via Wheelchair with complaints of gonzalo Abdominal Pain. 22:55 The patient presents with abdominal pain in the epigastric area, in the upper abdomen. gonzalo Onset: The symptoms/episode began/occurred just prior to arrival. The symptoms do not radiate. Associated signs and symptoms: Pertinent positives: nausea and vomiting. Modifying factors: The symptoms are alleviated by nothing, the symptoms are aggravated by food. Severity of pain: At its worst the pain was moderate severe in the emergency department the pain is unchanged. The patient has not experienced similar symptoms in the past. Historical: - Allergies: 22:52 No Known Allergies; cm10 - PMHx: 22:52 Fatty liver; Pre-Diabetic; cm10 - Immunization history:: Adult Immunizations up to date. - Infectious Disease History:: Denies. - Social history:: Smoking status: Patient denies any tobacco usage or history of. - Family history:: not pertinent. ROS: 22:55 Constitutional: Negative for fever, chills, and weight loss, Eyes: Negative for injury, gonzalo pain, redness, and discharge, ENT: Negative for injury, pain, and discharge, Neck: Negative for injury, pain, and swelling, Cardiovascular: Negative for chest pain, palpitations, and edema, Respiratory: Negative for shortness of breath, cough, wheezing, and pleuritic chest pain, Back: Negative for injury and pain, : Negative for injury, bleeding, discharge, and swelling, MS/Extremity: Negative for injury and deformity, Skin: Negative for injury, rash, and discoloration, Neuro: Negative for headache, weakness, numbness, tingling, and seizure, Psych: Negative for depression, anxiety, suicide ideation, homicidal ideation, and hallucinations, Allergy/Immunology: Negative for hives, rash, and allergies, Endocrine: Negative for neck swelling, polydipsia, polyuria, polyphagia, and marked weight changes, Hematologic/Lymphatic: Negative for swollen nodes, abnormal bleeding, and unusual bruising, 22:55 Abdomen/GI: Positive for abdominal pain, of the epigastric area, right upper quadrant and left upper quadrant, Exam: 22:55 Constitutional: This is a well developed, well nourished patient who is awake, alert, gnozalo and in no acute distress. Head/Face: Normocephalic, atraumatic. Eyes: Pupils equal round and reactive to light, extra-ocular motions intact. Lids and lashes normal. Conjunctiva and sclera are non-icteric and not injected. Cornea within normal limits. Periorbital areas with no swelling, redness, or edema. ENT: Nares patent. No nasal discharge, no septal abnormalities noted. Tympanic membranes are normal and external auditory canals are clear. Oropharynx with no redness, swelling, or masses, exudates, or evidence of obstruction, uvula midline. Mucous membranes moist. Neck: Trachea midline, no thyromegaly or masses palpated, and no cervical lymphadenopathy. Supple, full range of motion without nuchal rigidity, or vertebral point tenderness. No Meningismus. Chest/axilla: Normal chest wall appearance and motion. Nontender with no deformity. No lesions are appreciated. Cardiovascular: Regular rate and rhythm with a normal S1 and S2. No gallops, murmurs, or rubs. Normal PMI, no JVD. No pulse deficits. Respiratory: Lungs have equal breath sounds bilaterally, clear to auscultation and percussion. No rales, rhonchi or wheezes noted. No increased work of breathing, no retractions or nasal flaring. Back: No spinal tenderness. No costovertebral tenderness. Full range of motion. Male : Normal genitalia with no discharge or lesions. Skin: Warm, dry with normal turgor. Normal color with no rashes, no lesions, and no evidence of cellulitis. MS/ Extremity: Pulses equal, no cyanosis. Neurovascular intact. Full, normal range of motion. Neuro: Awake and alert, GCS 15, oriented to person, place, time, and situation. Cranial nerves II-XII grossly intact. Motor strength 5/5 in all extremities. Sensory grossly intact. Cerebellar exam normal. Normal gait. Psych: Awake, alert, with orientation to person, place and time. Behavior, mood, and affect are within normal limits. 22:55 Abdomen/GI: Inspection: distension, Bowel sounds: normal, Palpation: abdomen is soft and non-tender, Liver: no appreciated palpable abnormalities, Hernia: not appreciated, Vital Signs: 22:51 BP 100 / 44; Pulse 65; Resp 18; Temp 97.2(O); Pulse Ox 99% on R/A; Weight 140.61 kg; cm10 Height 5 ft. 11 in. ; Pain 06/25; 23:40 BP 111 / 77; Pulse 67; Resp 18; Pulse Ox 100% on R/A; kj2 06/29 00:45 BP 114 / 80; Pulse 62; Resp 18; Pulse Ox 100% on R/A; kj2 01:44 BP 112 / 78; Pulse 64; Resp 18; Temp 98.2; Pulse Ox 100% on R/A; kj2 06/28 22:51 Body Mass Index 43.24 (140.61 kg, 180.34 cm) cm10 06/28 22:51 Pain Scale: Adult cm10 MDM: 06/28 22:52 Patient medically screened. gonzalo 23:00 Differential diagnosis: cholecystitis, Cholelithiasis, diverticulitis, gastritis, gonzalo gastroesophageal reflux disease, GI Bleed, Hepatitis. Data reviewed: vital signs, nurses notes, lab test result(s), EKG, radiologic studies, CT scan, plain films, ultrasound. Consideration of Admission/Observation Patient was admitted/placed on observation. Escalation of care including admission/observation considered. I considered the following discharge prescriptions or medication management in the emergency department Medications were administered in the Emergency Department. See MAR. Independent interpretation of the following test(s) in the Emergency Department EKG: See my EKG interpretation above. Test considered but Not performed: MRI: no mrcp. Historians other than the Patient: Spouse/Significant Other: well informed. Care significantly affected by the following chronic conditions: Diabetes, Obesity. 06/28 22:54 Order name: CBC with Diff; Complete Time: 23:45 gonzalo 06/28 22:54 Order name: CMP; Complete Time: 23:45 gonzalo 06/28 22:54 Order name: Lipase; Complete Time: 23:45 gonzalo 06/28 23:00 Order name: PT-INR; Complete Time: 23:45 gonzalo 06/29 00:43 Order name: Magnesium EDMS 06/29 00:43 Order name: Phosphorus EDMS 06/29 00:43 Order name: Urinalysis w/ reflexes EDMS 06/28 22:54 Order name: CT Abd/Pelvis - IV Contrast Only [facility] 06/28 22:54 Order name: US Abdomen Limited [facility] 06/28 23:00 Order name: EKG; Complete Time: 23:00 [facility] 06/29 00:43 Order name: CONS Physician Consult [facility] 06/28 22:54 Order name: IV Saline Lock; Complete Time: 23:37 [facility] 06/28 22:54 Order name: Labs collected and sent; Complete Time: 23:37 [facility] 06/28 23:00 Order name: EKG - Nurse/Tech; Complete Time: 00:46 [facility] Administered Medications: 23:30 Drug: Ondansetron IVP 4 mg IVP once; over 2 minutes Route: IVP; Site: right antecubital;kj2 06/29 00:47 Follow up: Response: No adverse reaction; Nausea is decreased [facility] 06/28 23:32 Drug: morphine IVP or IV 4 mg IVP once over 4 mins Route: IVP; Infused Over: 4 mins; kj2 Site: right antecubital; 06/29 00:47 Follow up: Response: No adverse reaction; Pain is decreased [facility] 06/28 23:35 Drug: Famotidine IVP 20 mg IVP once; dilute with 10 mL 0.9% NaCl; give over 2 minutes kj2 Route: IVP; Site: right antecubital; 06/29 00:46 Follow up: Response: No adverse reaction [facility] 06/28 23:35 Drug: NS 0.9% IV 1000 ml IV at 1 bolus Per protocol; to be given as a bolus over 60 kj2 minutes Route: IV; Rate: 1 bolus; Site: right antecubital; 06/29 00:48 Follow up: Response: No adverse reaction; IV Status: Completed infusion; IV Intake: kj2 1000ml 06/28 23:42 Drug: Piperacillin-Tazobactam IVPB 3.375 grams IVPB once over 60 mins; (mix in NS 100 kj2 mL) Route: IVPB; Infused Over: 60 mins; Site: right antecubital; 06/29 00:46 Follow up: Response: No adverse reaction; IV Status: Completed infusion; IV Intake: kj2 100ml Disposition Summary: 06/29/24 00:28 Hospitalization Ordered Notes: Hospitalization Status: Observation [facility] Provider: [place], [place] gonzalo Location: Telemetry/MedSurg (observation) gonzalo Condition: Fair gonzalo Problem: new gonzalo Symptoms: have improved gonzalo Bed/Room Type: Standard [facility] Room Assignment: 218(06/29/24 01:17) kl Diagnosis - Other cholelithiasis with obstruction - stone in the neck gonzalo - Acute cholecystitis gonzalo - Elevated white blood cell count gonzalo - Hyperglycemia, unspecified gonzalo - Obesity, unspecified gonzalo Forms: - Medication Reconciliation Form gonzalo - SBAR form gonzalo - Leadership Thank You Letter gonzalo Signatures: Dispatcher [employer] Riana Willingham RN Cam You MD MD cha Martinez, Clarissa RN RN cm10 Neelam Hsieh RN RN kj2 Letha Thrasher 3 Corrections: (The following items were deleted from the chart) 06/28 22:53 22:52 Allergies: Aspirin; cm10 cm10 06/29 00:53 00:28 gonzalo af3 01:12 00:53 218 af3 af3 01:17 01:12 222 af3 kl
[2024-06-29] MEDS ORDERED: ONDANSETRON 4 MG/2 ML VIAL IV PRN (00:38)
[2024-06-29] MEDS ORDERED: HYDROMORPHONE HCL 1 MG/ML INJ IV PRN (00:41)
--- NOTE | 2024-06-29 00:41 | RAD REPORT ---
CLINICAL HISTORY: Abdominal pain. COMPARISON: US Abdomen 06/28/2024, CT Chest Abdomen pelvis 12/27/2017. TECHNIQUE: CT ABDOMEN PELVIS WITH IV CONTRAST on 06/28/2024 10:54 PM CDT This exam was performed according to our departmental dose-optimization program, which includes autom ated exposure control, adjustment of the mA and/or kV according to patient size and/or use of iterative reconstruction technique. FINDINGS: Lower lungs are clear. Abdomen: Liver is fatty in attenuation. There is no biliary dilatation. Gallbladder is normal in appe arance. The pancreas and spleen are normal in appearance. The adrenal glands and kidneys are unremarkable. Abdominal aorta is normal in course and caliber without aneurysm. There is no free air. There is no r etroperitoneal adenopathy. Pelvis: There is no bowel obstruction. Urinary bladder is unremarkable. There is no free fluid. Appen ronen is normal. Skeleton: There are no acute osseous findings. No suspicious bony lesions. IMPRESSION: No acute process. Electronically signed by: Pedro Palm MD 06/29/2024 12:38 AM CDT RP Due to temporary technical issues with the PACS/[employer] reporting system, reports are being palak d by the in-house radiologist without review as a courtesy to ensure prompt reporting the interpreting radiologist is fully responsible for the content of the report. Transcribed Date/Time: 06/29/2024 12:41 AM
[2024-06-29] MEDS: HEPARIN 5000 UNIT/ML 1 ML VIAL SQ SCH (01:00)
--- NOTE | 2024-06-29 01:04 | P.HP ---
Certification for Inpatient Patient admitted to: Observation With expected LOS: <2 Midnights Practitioner: I am a practitioner with admitting privileges, knowledge of patient current condition, hospital course, and medical plan of care. 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 He presents to the ER with epigastric abdominal pain radiating to his RUQ region. Patient has been found to have a stone in the neck of the gallbladder. He does not meet criteria for sepsis. During my evaluation, patient's spouse was at bedside and provided most of the history. Patient had just been medicated with morphine. Patient is currently on fluconazole and clindamycin for cellulitis of the his back. Allergies No Known Allergies Allergy (Unverified 12/27/17 18:43) Physical Examination - Physical Exam General: Mild distress, Obese HEENT: Atraumatic, Normocephalic Respiratory: Clear to auscultation bilaterally, Normal air movement Cardiovascular: No edema, Normal pulses, Regular rate/rhythm, Normal S1 S2 Gastrointestinal: Soft and benign, Non-distended Musculoskeletal: No clubbing, No swelling, No contractures, No erythema Neurological: Normal speech - Studies Laboratory Data (last 24 hrs) 06/28/24 06/28/24 06/28/24 23:20 23:20 23:20 WBC 11.60 H Hgb 12.2 L Hct 37.7 L Plt Count 289 PT 11.9 INR 1.06 Sodium 142 Potassium 4.2 BUN 30 H Creatinine 0.80 Glucose 123 H Total Bilirubin 0.2 AST 38 H ALT 72 H Alkaline Phosphatase 55 Lipase 51 Assessment and Plan - Problems (Diagnosis) (1) Cholelithiasis Current Visit: Yes Status: Acute (2) Morbid obesity Current Visit: Yes Status: Acute (3) Klinefelter syndrome Current Visit: Yes Status: Acute (4) JUANITA (obstructive sleep apnea) Current Visit: Yes Status: Acute - Plan Assessment Patient is a 34 year old male with morbid obesity, JUANITA and Klinefilter's syndrome. He is beign admitted for cholelithiasis after he presented with epigastric and RUQ abdominal pain. Acute cholelithiasis Morbid obesity JUANITA Klinefilter's syndrome PLAN: Will admit under observation IV fluid, anti-emetics and pain control Consult placed to General surgery DVT ppx Patient can be discharged once cleared by general surgery - Advance Directives Does patient have a Living Will: No Does patient have a Durable POA for Healthcare: No
[2024-06-29] MEDS: D5 0.45 NS 1,000 ML IV SCH (02:16)
[2024-06-29 03:16] LABS: Urine Bilirubin NEGATIVE (Negative); Urine Blood Negative (Negative); Urine Clarity Clear (Clear); Urine Color Colorless (Yellow); Urine Glucose NEGATIVE (Negative); Urine Ketones NEGATIVE (Negative); Urine Microscopic Reflex YN NO UMIC; Urine Nitrite NEGATIVE (Negative); Urine Protein NEGATIVE (Negative); Urine Urobilinogen Normal (Normal); Urine pH 5.5 (5.0-7.0)
[2024-06-29 03:18] LABS: Specific Gravity > 1.030 (1.005-1.030)
[2024-06-29 05:23] LABS: Magnesium 1.9 mg/dL (1.6-2.4); Phosphorus 4.1 mg/dL (2.5-4.9)
[2024-06-29 07:31] LABS: ALT/SGPT 63 U/L (16-61); AST/SGOT 38 U/L (15-37); Albumin 2.6 g/dL (3.4-5.0); Albumin/Globulin Ratio 0.7 (1.1-1.8); Alkaline Phosphatase 43 U/L (45-117); Anion Gap 6.2 mEq/L (5.0-15.0); BUN Blood Urea Nitrogen 25 mg/dL (7-18); Bicarbonate 26 mEq/L (21-32); Bilirubin Total 0.2 mg/dL (0.2-1.0); Globulin 3.9 g/dL (2.3-3.5); Glomerular Filtration Rate 120 ml/min (=/>90); Glucose Level 144 mg/dL (74-106); Potassium 4.2 mEq/L (3.5-5.1); Protein, Total 6.5 g/dL (6.4-8.2); Sodium Level 142 mEq/L (136-145)
[2024-06-29 07:33] LABS: Absolute Eosinophils 0.2 K/uL (0-0.5); Absolute Lymphocytes (CBC) 2.1 K/uL (0.7-4.9); Absolute Monocytes 0.5 K/uL (0.1-1.3); Absolute Neutrophil 5.9 K/uL (1.8-8.0); Basophils % 0.3 % (0-1.3); Eosinophils % 2.3 % (0-4.4); Hematocrit 36.9 % (39.6-49.0); Hemoglobin 11.8 g/dL (13.6-17.9); Lymphocytes % 24.7 % (15.3-44.8); MCV 93.6 fL (80-100); MPV 9.6 fL (7.6-11.3); Monocytes % 5.2 % (3.3-12.3); Neutrophils % 67.5 % (41.7-73.7); Platelets 289 thou/uL (152-406); RBC Red Blood Cell Count 3.94 M/uL (4.33-5.43); Red Cell Distribution Width 14.4 % (12.1-15.2)
[2024-06-29 07:34] LABS: Bilirubin Direct < 0.2 mg/dL (0-0.2)
[2024-06-29] MEDS: PIPER TAZO 3.375 GM in NA CHLORIDE 0.9% 100 ML IV SCH (07:55)
[2024-06-29] MEDS ORDERED: LIDOCAINE 2% MPF 5 ML VIAL ONE (12:31)
[2024-06-29] MEDS ORDERED: propofoL 200 MG/20 ML VIAL IV ONE (12:31)
[2024-06-29] MEDS ORDERED: MIDAZOLAM HCL 2 MG/2 ML INJ ONE (12:31)
[2024-06-29] MEDS ORDERED: ONDANSETRON 4 MG/2 ML VIAL ONE (12:31)
[2024-06-29] MEDS ORDERED: ROCURONIUM 50 MG/5 ML VIAL IV ONE (12:31)
[2024-06-29] MEDS ORDERED: FENTANYL CITR 100 MCG/2 ML ONE ×2 (12:31→13:56)
[2024-06-29] MEDS ORDERED: GLYCOPYRROLATE 0.2 MG/ML SYR ONE (12:31)
[2024-06-29] MEDS: Ringers Lactate 1,000 ML IV ONE (12:34)
[2024-06-29] MEDS: SUGAMMADEX SODIUM 200 MG/2 ML VIAL IV ONE (12:40)
[2024-06-29] MEDS: GLYCOPYRROLATE 0.2 MG/ML SYR ONE (13:05)
[2024-06-29] MEDS ORDERED: EPHEDRINE SULF 50 MG/ML VIAL ONE (13:18)
[2024-06-29] MEDS ORDERED: dexAMETHasone 10 MG/ML VIAL ONE (13:23)
[2024-06-29] MEDS: LIDOCAINE HCL/EPINEPHRINE 20 ML MDV ONE (13:42)
--- NOTE | 2024-06-29 15:04 | P.OP ---
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
[2024-06-29] MEDS ORDERED: HYDROCODONE/APAP 5/325 MG TAB PO PRN (15:19)
[2024-06-29] MEDS: HYDROMORPHONE HCL 1 MG/ML INJ ONE (15:30)
--- NOTE | 2024-06-29 17:22 | P.PN ---
Date of Service: 06/29/24 Patient seen and examined on rounds this morning Reports pain improved shortly after arrival to the floor, no further nausea/vomiting However on exam, he remains quite tender in the right upper quadrant Imaging reviewed, discussed case with general surgery, planning for cholecystectomy later today currently given clinical concern for acute calculus cholecystitis Continue n.p.o., IV fluids, empiric antibiotics Confirm home medications
[2024-06-29 23:31] VITALS: O2SAT 95
[2024-06-30 02:04] VITALS: BMI 44.1
[2024-06-30 04:53] LABS: Absolute Basophils 0.1 K/uL (0-0.5); Absolute Lymphocytes (CBC) 0.6 K/uL (0.7-4.9); Absolute Monocytes 0.3 K/uL (0.1-1.3); Absolute Neutrophil 11.1 K/uL (1.8-8.0); Basophils % 0.4 % (0-1.3); Hematocrit 38.1 % (39.6-49.0); Hemoglobin 12.4 g/dL (13.6-17.9); Lymphocytes % 4.7 % (15.3-44.8); MCH 29.7 pg (27.0-35.0); MCHC 32.6 g/dL (32.0-36.0); MCV 91.2 fL (80-100); MPV 9.2 fL (7.6-11.3); Monocytes % 2.6 % (3.3-12.3); Neutrophils % 92.3 % (41.7-73.7); Platelets 327 thou/uL (152-406); RBC Red Blood Cell Count 4.17 M/uL (4.33-5.43); Red Cell Distribution Width 13.6 % (12.1-15.2)
[2024-06-30 05:17] LABS: Albumin 2.7 g/dL (3.4-5.0); Albumin/Globulin Ratio 0.6 (1.1-1.8); Anion Gap 8.1 mEq/L (5.0-15.0); Bilirubin Total 0.4 mg/dL (0.2-1.0); Globulin 4.7 g/dL (2.3-3.5); Potassium 4.1 mEq/L (3.5-5.1); Protein, Total 7.4 g/dL (6.4-8.2)
[2024-06-30 05:27] LABS: Band Neutrophils 12 % (0-1); Differential Total Cells Count 100; Lymphocytes 1 % (15-42); Reactive Lymphocytes 1 %; Segmented Neutrophils 86 % (40-80)
[2024-06-30 05:28] LABS: Blood Morphology Comment NOT SEEN (NOT SEEN); Monocytes 0 % (0-10); Platelet Estimate ADEQ
[2024-06-30] MEDS: ACETAMINOPHEN 500 MG TAB PO PRN (07:56)
[2024-06-30 08:51] VITALS: BP 126/62; TEMP 97.2
--- NOTE | 2024-06-30 10:58 | P.DS ---
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 He presented to the ER with epigastric abdominal pain radiating to his RUQ region. Patient was found to have a stone in the neck of the gallbladder. He did not meet criteria for sepsis. Patient was hospitalized and started on IV antibiotics. He was evaluated by surgery Dr. Aviles who performed lap cholecystectomy with ICG. Patient was monitored overnight with no issues. He was afebrile with stable vitals. He is deemed stable for discharge per Dr. Aviles. He is discharged with [place] for pain control and oral Augmentin. Vital Signs/Physical Exam: Temp Pulse Resp BP Pulse Ox 97.2 F 46 L 15 126/62 95 06/30/24 08:00 06/30/24 08:00 06/30/24 08:00 06/30/24 08:00 06/30/24 08:00 General: Alert, In no apparent distress, Oriented x3, Obese HEENT: Mucous membr. moist/pink, Sclerae nonicteric Neck: Supple, JVD not distended Respiratory: Clear to auscultation bilaterally, Normal air movement Cardiovascular: No edema, Regular rate/rhythm, Normal S1 S2 Gastrointestinal: Normal bowel sounds, Soft and benign, Non-distended Musculoskeletal: No swelling Integumentary: No rashes, No cyanosis Neurological: Normal strength at 5/5 x4 extr Laboratory Data at Discharge: WBC 12.00 thou/uL (4.3-10.9) H 06/30/24 04:23 Hgb 12.4 g/dL (13.6-17.9) L 06/30/24 04:23 Hct 38.1 % (39.6-49.0) L 06/30/24 04:23 Plt Count 327 thou/uL (152-406) 06/30/24 04:23 PT 11.9 SECONDS (9.4-12.5) 06/28/24 23:20 INR 1.06 06/28/24 23:20 Sodium 139 mEq/L (136-145) 06/30/24 04:23 Potassium 4.1 mEq/L (3.5-5.1) 06/30/24 04:23 BUN 14 mg/dL (7-18) 06/30/24 04:23 Creatinine 0.92 mg/dL (0.70-1.30) 06/30/24 04:23 Glucose 241 mg/dL (74-106) H 06/30/24 04:23 Phosphorus 4.1 mg/dL (2.5-4.9) 06/29/24 04:37 Magnesium 2.0 mg/dL (1.6-2.4) 06/30/24 04:23 Total Bilirubin 0.4 mg/dL (0.2-1.0) 06/30/24 04:23 AST 45 U/L (15-37) H 06/30/24 04:23 ALT 80 U/L (16-61) H 06/30/24 04:23 Alkaline Phosphatase 53 U/L (45-117) D 06/30/24 04:23 Lipase 51 U/L (13-75) 06/28/24 23:20 Home Medications: Fluconazole [Diflucan] 200 mg PO DAILY 06/29/24 clindamycin HCL [Clindamycin HCl] 300 mg PO Q8H 06/29/24 hydrOXYzine HCL [Atarax*] 25 mg PO TID PRN 06/29/24 Amox/Clavulanate [Augmentin 875-125 Tab] 1 each PO BID #10 tab 06/30/24 Hydrocodone 5/APAP 325 [[place] 5/325*] 1 tab PO Q6H PRN #20 tab 06/30/24 New Medications: Amox/Clavulanate [Augmentin 875-125 Tab] 1 each PO BID #10 tab Hydrocodone 5/APAP 325 [[place] 5/325*] 1 tab PO Q6H PRN #20 tab PRN Reason: Pain Scale 5-7 (Moderate) Physician Discharge Instructions: Physician discharge instructions: Patient presented with worsening epigastric pain radiating to RUQ area secondary to Abdominal ultrasound on admission noted a gallstone at the neck without evidence of gallbladder wall thickening or pericholecystic fluid consistent with acute cholelithiasis. CT abdomen with contrast noted fatty liver otherwise negative study. Patient was evaluated by Dr. Aviles, general surgeon, who performed lap miroslava on 06/29 Patient did well postoperatively and was stable for discharge home. Medications: Continue home meds as previously prescribed. Follow up: PCP 3-5 days Please call to schedule / confirm appointments Diet: Craven Activity: No lifting more than 10 lbs Followup: Edwin Perales DO [Primary Care Provider] - 1-2 Weeks Patricio Aviles MD [ACTIVE - CAN ADMIT] - 1 Week Time spent managing pt's care (in minutes): 28
--- NOTE | 2024-06-30 21:06 | OP ---
Date of Procedure: 06/29/2024 Surgeon: Patricio Aviles MD, Preoperative Diagnosis: Acute calculous cholecystitis. Postoperative Diagnosis: Acute calculous cholecystitis. Procedure Performed: Laparoscopic cholecystectomy with indocyanine green cholangiography. Anesthesia: General endotracheal plus local with 1% lidocaine with epinephrine. Estimated Blood Loss: Less than 10 cc. Specimen: Gallbladder. Findings: Short cystic artery was noted off the branch of the right hepatic which came in at an unus ual oblique angle. 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 Complications: None. Implants: Paulette hemostatic powder. Disposition: Patient transferred to recovery room in good condition. Procedure In Detail: After informed consent was obtained, patient was brought to the operating room, prepped and draped in the usual sterile fashion after adequate anesthesia was achieved. I anestheti zed near the supraumbilical position down to subcutaneous tissue. A 5-mm 0-degree optical trocar was introduced without incident or complication. Insufflation was obtained to 15 mmHg, at this time. T here was no injury to vital structures upon entry into the abdomen. Three additional trocars were pl aced, one in the epigastrium, one in the right upper quadrant, one in the right abdomen. These were all 5 mm trocars placed under direct vision without incident or complication. The umbilical trocar w as then upsized to a 12 mm under visualization. The patient's position was head up right-side up pos ition. Ratcheted grasper was used to grasp the patient's gallbladder which was found to be quite zhen g and oblong in appearance with significant inflammatory change to the anterior surface. In addition , it had a boot-like orientation under visualization. I continued the dissection down to the Akhtar n pouch of the gallbladder ultimately skeletonizing 2 structures identifying both cystic duct and cys tic artery. Critical view of safety was obtained, at this point, without any obvious aberrant struct ures. However, the anatomy was somewhat abnormal as described, at this point, with a short cystic ar paula and a short takeoff of the right hepatic with an oblique angle. At this point, I placed double titanium clips doubly on the proximal side and singly on the distal side of both the cystic duct and cystic artery after indocyanine green cholangiography confirmed the cystic duct, common duct junction , and no additional aberrant biliary structures were appreciated. I then ligated these structures be tween Endo Guanaco without incident or complication. I then removed the gallbladder off the hepatic f glynn and noted there was an aberrant arterial bleeding structure off the lateral aspect of the mid he patic fossa which was an arterial bleeding vessel which was clipped with a single clip, at this point , with good hemostasis. I then continued to remove the gallbladder off the hepatic fossa without inc ident or complication, placed in EndoCatch bag, removed through the umbilical trocar site, and sent o ff for pathologic examination. The area was copiously irrigated multiple times. Indocyanine green c holangiography confirmed bile was flowing normally in the normal anatomic position without any eviden ce of leakage. Clips were found to be in good anatomic position. I then fulgurated the bed and othe r areas around the region away from the clipped aberrant artery, which had good hemostasis, at this p oint. I irrigated the area multiple times. There was no hemostatic maneuvers required, at this poin t. I then sprayed Paulette hemostatic powder matrix into the hepatic fossa and placed adipose tissue i nto this space and then placed the patient back in neutral position. The remainder of effluent was s uctioned out. The patient then had a 12 mm trocar site closed using a Jv-Jeff suture passer without incident or complication. The remainder of trocars were removed. All skin incisions were th en copiously irrigated and closed with a 4-0 Monocryl in a running fashion. Dermabond was placed ove r top. The patient tolerated the procedure without incident or complication and transferred to PACU in good condition. All counts were correct at the end of the ca se. TK/MODL Voice ID: [id number] Report ID: [id number]
== END 2024-06-30 11:54 | disposition home or self-care (01) ==
LOC: ER 22:38 → ERHOLD 06-29 00:38 → 2ND 06-29 01:27
PROVIDERS: ADMIT Internal Medicine; ATTEND Internal Medicine
PROC: BF50200 Other Imaging of Bile Ducts using Fluorescing Agent, Indocyanine Green Dye, Intraoperative (ICD-10-PCS; 2024-06-29)
PROC: 0FT44ZZ Resection of Gallbladder, Percutaneous Endoscopic Approach (ICD-10-PCS; principal; 2024-06-29 14:00)
DX: K80.00 Calculus of gallbladder with acute cholecystitis without obstruction (principal); D72.829 Elevated white blood cell count, unspecified; R73.9 Hyperglycemia, unspecified; Q98.4 Klinefelter syndrome, unspecified; E66.01 Morbid (severe) obesity due to excess calories; G47.33 Obstructive sleep apnea (adult) (pediatric); K76.0 Fatty (change of) liver, not elsewhere classified; R73.03 Prediabetes; Z68.41 Body mass index [BMI] 40.0-44.9, adult
CPT/HCPCS: 47563; 93005; 85025 ×3; 36415 ×2; 83735 ×2; 84100; 85610; 88304; 81003; 82248; 83690; 80053 ×3; 74177; 76705; Q9967; J1644; J2704; J2543 ×5; J2001; J3010 ×2; J1100; J1170; J2405 ×2; J7799 ×2; J7120; J7030; G0378; J2250

== ENCOUNTER 2024-07-28 08:41 | Emergency (ER) | payer OTHER ==
--- NOTE | 2024-07-28 09:15 | ER ---
Nurse's Notes [facility] Name: Neftali Miles Age: 34 yrs Sex: Male : 1990 Arrival Date: 07/28/2024 Time: 08:41 Bed IW1 Private MD: Diagnosis: incision dehiscence Presentation: 07/28 08:56 Chief complaint: Patient states: Had cholecystectomy on 06/[address] Aviles. Pt wants ss to have umbilical incision evaluated after scab came off. Coronavirus screen: Client denies travel out of the [place] in the last 14 days. Ebola Screen: Patient denies exposure to infectious person. Patient denies travel to an Ebola-affected area in the 21 days before illness onset. Initial Sepsis Screen: Does the patient meet any 2 criteria? No. Patient's initial sepsis screen is negative. Does the patient have a suspected source of infection? No. Patient's initial sepsis screen is negative. Risk Assessment: Do you want to hurt yourself or someone else? Patient reports no desire to harm self or others. Onset of symptoms was June 29, 2024. 08:56 Method Of Arrival: Ambulatory ss 08:56 Acuity: DEVAN 3 ss Triage Assessment: 09:09 General: Appears in no apparent distress. comfortable, Behavior is calm, cooperative. ss Pain: Complains of pain in umbilical area Pain currently is 2 out of 10 on a pain scale. Quality of pain is described as tender, Is continuous. Neuro: Level of Consciousness is awake, alert, obeys commands, Oriented to person, place, time, situation. Respiratory: Airway is patent Respiratory effort is even, unlabored, Respiratory pattern is regular, symmetrical. GI: approximately 2 cm incision noted above umbilicus. Pt reports it, "opened up" two days ago Patient currently denies diarrhea, nausea, vomiting. : Derm: Skin is intact, is healthy with good turgor, Skin is pink, warm \\T\\ dry. normal. Historical: - Allergies: 08:59 No Known Allergies; ss - Home Meds: 08:59 None [Active]; ss - PMHx: 08:59 fatty liver; pre-diabetic; ss - PSHx: 08:59 Cholecystectomy; ss - Immunization history:: Client reports receiving the 2nd dose of the Covid vaccine. - Infectious Disease History:: Denies. - Social history:: Smoking status: Patient denies any tobacco usage or history of. Screenin:08 Abuse screen: Denies threats or abuse. Denies injuries from another. Nutritional ss screening: No deficits noted. Tuberculosis screening: Never had TB. Assessment: 09:08 Reassessment: Dr. Griggs assessing patient at this time in triage room. ss Vital Signs: 08:56 BP 119 / 89; Pulse 55; Resp 16; Temp 97.9(TE); Pulse Ox 98% on R/A; Weight 145.15 kg; ss Height 6 ft. 0 in. ; Pain 2/10; 08:56 Body Mass Index 43.40 (145.15 kg, 182.88 cm) ss 08:56 Pain Scale: Adult ss ED Course: 08:44 Patient arrived in ED. im 08:59 Triage completed. ss 08:59 Arm band placed on right wrist. ss 09:05 Keith Griggs DO is Attending Physician. ms3 09:08 Patient has correct armband on for positive identification. ss 09:13 Patricio Aviles MD is Referral Physician. ms3 09:33 Nesha Lama, TRAVIS is Primary Nurse. ss 09:33 No provider procedures requiring assistance completed. Patient did not have IV access ss during this emergency room visit. Administered Medications: No medications were administered Medication: 09:08 VIS not applicable for this client. ss Outcome: 09:14 Discharge ordered by . ms3 09:33 Discharged to home ambulatory, ss 09:33 Condition: good 09:33 Discharge instructions given to patient, significant other, Instructed on discharge instructions, follow up and referral plans. wound care, Demonstrated understanding of instructions, follow-up care, wound care, 09:33 Patient left the ED. ss Signatures: Nesha Lama, RN RN Keith Griggs DO DO ms3 Carrillo, Kavitha im
--- NOTE | 2024-07-28 09:34 | EDPHYS ---
Physician Documentation [facility] Name: Neftali Miles Age: 34 yrs Sex: Male : 1990 Arrival Date: 07/28/2024 Time: 08:41 Bed IW1 Private MD: ED Physician Keith Griggs HPI: 07/28 09:15 This 34 yrs old Male presents to ER via Ambulatory with complaints of Incision ms3 check. 09:15 34-year-old male with past medical history of fatty liver, prediabetes, Klinefelter's, ms3 obstructive sleep apnea presents the emergency department for incisional wound dehiscence. Patient states he had a laparoscopic cholecystectomy 1 month ago. Patient states wound dehisced 2 days ago and a scab formed. Since the scab forming and has fallen off. Patient does not have drainage, or surrounding erythema. . Historical: - Allergies: 08:59 No Known Allergies; ss - Home Meds: 08:59 None [Active]; ss - PMHx: 08:59 fatty liver; pre-diabetic; ss - PSHx: 08:59 Cholecystectomy; ss - Immunization history:: Client reports receiving the 2nd dose of the Covid vaccine. - Infectious Disease History:: Denies. - Social history:: Smoking status: Patient denies any tobacco usage or history of. ROS: 09:15 Constitutional: Negative for fever, and chills. Cardiovascular: Negative for chest ms3 pain, and palpitations. Respiratory: Negative for shortness of breath, cough, wheezing, and pleuritic chest pain, Abdomen/GI: Negative for abdominal pain, nausea, vomiting, diarrhea, and constipation, 09:15 Skin: Positive for Incision open, Exam: 09:15 Constitutional: This is a well developed, well nourished patient who is awake, alert, ms3 and in no acute distress. Chest/axilla: Normal chest wall appearance and motion. Nontender with no deformity. Cardiovascular: Regular rate and rhythm with a normal S1 and S2. No gallops, murmurs, or rubs. Normal PMI, no JVD. No pulse deficits. Respiratory: Lungs have equal breath sounds bilaterally, clear to auscultation and percussion. No rales, rhonchi or wheezes noted. No increased work of breathing, no retractions or nasal flaring. Abdomen/GI: Soft, non-tender, with normal bowel sounds. No distension or tympany. No guarding or rebound. No evidence of tenderness throughout. 09:15 Skin: 3 cm umbilical incision with dehiscence. No surrounding erythema, no drainage. Vital Signs: 08:56 BP 119 / 89; Pulse 55; Resp 16; Temp 97.9(TE); Pulse Ox 98% on R/A; Weight 145.15 kg; ss Height 6 ft. 0 in. ; Pain 2/10; 08:56 Body Mass Index 43.40 (145.15 kg, 182.88 cm) ss 08:56 Pain Scale: Adult ss MDM: 09:13 Medical Screening Exam initiated ms3 09:15 Differential Diagnosis Wound dehiscence. Data reviewed: vital signs, nurses notes, and ms3 as a result, I will discharge patient. Counseling: I had a detailed discussion with the patient and/or guardian regarding the historical points, exam findings, and any diagnostic results supporting the discharge/admit diagnosis, the need for outpatient follow up, to return to the emergency department if symptoms worsen or persist or if there are any questions or concerns that arise at home. Special discussion: I discussed with the patient/guardian in detail that at this point there is no indication for admission to the hospital. It is understood, however, that if the symptoms persist or worsen the patient needs to return immediately for re-evaluation. ED course: Discussed wound care with patient. Patient to follow-up with Dr. Aviles in 2 to 3 days. Patient understands and agrees with plan. All questions were answered. Return precautions discussed include worsening symptoms, or any other concerns.. Administered Medications: No medications were administered Disposition: 15:04 Chart complete. ms3 Disposition Summary: 07/28/24 09:14 Discharge Ordered Notes: Location: Home ms3 Condition: Stable ms3 Diagnosis - incision dehiscence ms3 Followup: ms3 - With: Patricio Aviles MD - When: 2 - 3 days - Reason: Recheck today's complaints Discharge Instructions: - Discharge Summary Sheet ss - Wound Dehiscence, [id number] ms3 Forms: - Work release form ss - Family Work Release ss - Medication Reconciliation Form ms3 - Antibiotic Education ms3 - Prescription Opioid Use ms3 - Patient Portal Instructions ms3 - Leadership Thank You Letter ms3 Signatures: Nesha Lama, RN RN ss Keith Griggs, DO ms3
[2024-07-28 09:59] VITALS: BP 119/89; TEMP 97.9; O2SAT 98
== END 2024-07-28 09:33 | disposition home or self-care (01) ==
LOC: ER 08:41
DX: T81.31XA Disruption of external operation (surgical) wound, not elsewhere classified, initial encounter (principal); Z90.49 Acquired absence of other specified parts of digestive tract; R73.03 Prediabetes; K76.0 Fatty (change of) liver, not elsewhere classified
CPT/HCPCS: 99282

== ENCOUNTER 2024-09-15 03:37 | Emergency (ER) | payer OTHER ==
--- OUTSIDE RECORDS SUMMARY | 2024-09-15 03:39 | XMS REPORT | Continuity of Care Document ---
Author Name Unknown Address [address] [facility] [address] [place] [address] [facility] thconnect Address [address] [facility] [address] [place] [address] Care Team Providers Care Graduate Rn Name Role Phone BARTOLO FIORELLA Attending Clinician Unavailable PL, TECH 1 Attending Clinician Unavailable MD MARU Attending Clinician UnavailPatrice Harvey Attending Clinician Unavailable Gely Stoner Attending Clinician Avila sanabria Physician, No Primary or Family Admitting Clinic jarad Unavailable Gely Stoner Admitting Clinician Avila sanabria Payers Payer Name Policy Type Policy Number Effective Date Expirati on Date Source [employer] [place] S O RN MEDICATION 94 ON 9 [id number] 2023-09-16 00:00:00 Problems Condition Name Condition Details Condition Category Status Onset Date Resolution Date Last Treatment Date Treating Clinician Comments Source Elevated liver function tests Elevated liver function tests Disease Active 2023-09 00:00: 00 Kaitlynn callahan Hospital discharge follow-up Hospital discharge follow-up Disease Active 2023-09 00:00: 00 Kaitlynn callahan Well adult exam Well adult exam Disease Active 2023-09 00:00: 00 Kaitlynn Seybold - Externa l JUANITA on CPAP JUANITA on CPAP Disease Active Kaitlynn Seybold - Externa l Morbid obesity Morbid obesity Disease Active Kaitlynn Seybold - Externa l Prediabete s Prediabete s Disease Active Kaitlynn Seybold - Externa l 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) Disease Active Kaitlynn Seybold - Externa l Allergies, Adverse Reactions, Alerts Allergy Name Allergy Type Status Severity Reaction(s) Onset Date Inactive Date Treating Clinician Comments Source No Known Allergie s DA Active U 04-02 00:00: 00 [facility] Social History Social Habit Start Date Stop Date Quantity Comments Source Sexual orientation Delvis pitts Ignacia - External History of Occupation Kaitlynn Beth - External Tobacco use and exposure 2024-07-14 00:00:00 2024-07-14 00:00:00 Smokeless tobacco non-user Kaitlynn Beth - External Alcoholic beverage intake 2024-07-14 00:00:00 2024-07-14 00:00:00 Current drinker of alcohol (finding) Kaitlynn Beth - External History of Social function 2024-07-14 00:00:00 2024-07-14 00:00:00 Kaitlynn Beth - External Education 2024-07-14 00:00:00 2024-07-14 00:00:00 15 Kaitlynn Beth - External Alcohol Comment 2024-07-14 00:00:00 2024-07-14 00:00:00 rarely Kaitlynn Beth - External Sex 2022-12-26 21:33:05 2022-12-26 21:33:05 Male (finding) Kaitlynn Beth - External Sex assigned at 1990 00:00:00 1990 00:00:00 Kaitlynn Beth - External Smoking Status Start Date Stop Date Source Never smoked tobacco Kaitlynn Beth - External Medications Ordered Medication Name Filled Medication Name Start Date Stop Date Current Medication? Ordering Clinician Indication Dosage Frequency Signature (SIG) Comments Components Source Ciprofloxac in-dexAMETH asone 0.3-0.1 % otic Suspension 2023-09 00:00: 07-20 05:59 :00 Yes [id number] 3[drp] Q.5D Place 3 drops into both ears 2 times daily for 5 days. Kaitlynn Beth - Externa l Vital Signs Vital Name Observation Time Observation Value Comments S jessica Systolic blood pressure 2024-07-14 16:15:00 106 mm[Hg] Kaitlynn Oh ld - External Diastolic blood pressure 2024-07-14 16:15:00 81 mm[Hg] Kaitlynn Mill[place] ld - External Body temperature 2024-07-14 16:15:00 36.83 Cielo Kaitlynn Beth - External Body height 2024-07-14 16:15:00 182.9 cm Marianne Beth - External Body weight 2024-07-14 16:15:00 145.605 kg Marianne Beth - External BMI 2024-07-14 16:15:00 43.54 kg/m2 Marianne fernandez Seybold - External Encounters Start Date/Time End Date/Time Encounter Type Admission Type Attending [facility] Care Department Encounter ID Source 2024-10-12 09:00:00 2024-10-12 09:00:00 Outpatient FIORELLA MCFARLAND [id number] Kaitlynn Ignacia 2024-10-05 11:15:00 2024-10-05 11:15:00 Outpatient FIORELLA MCFARLAND [id number] Kaitlynn Genelaura 2024-09-04 10:00:00 2024-09-04 10:00:00 Outpatient YASMIN FLORES [id number] Kaitlynn Ignacia 2024-09-04 00:00:00 2024-09-04 00:00:00 Outpatient MD KAITLYNN ROJAS [id number] Kaitlynn Ignacia 2024-07-30 00:00:00 2024-07-30 00:00:00 Outpatient FIORELLA MCFARLAND [id number] Kaitlynn Ignacia 2024-07-15 00:00:00 2024-07-15 00:00:00 Outpatient FIORELLA MCFARLAND [id number] Kaitlynn Ignacia 2024-07-14 11:30:2024-07-14 11:30:00 Outpatient FIORELLA MCFARLAND [id number] Kaitlynn Beth 2023-05-09 09:00:00 2023-05-09 10:08:00 Emergency EM Patrice Ramos HCANW ANTONIO [id number] [facility] are [facility] 2023-04-02 15:41:00 2023-04-03 19:35:00 Inpatient EM Cecilio Stoner HCANW MED [id number] [facility] are [facility] Results Test Description Test Time Test Comments Results Result Co mments Source SED [id number] 18:57:00* Test Item Value Reference Range Interpretation Comme nts SED RATE (test code = SEDW) 71 mm/hr 0-15 H - CT ABD PELVIS [id number] 16:04:00 [facility] 1990 Sex: MPatient Name: WILI MARTINS Unit No: [id number] EXAMS: CPT: [id number] CT ABD PELVIS W/CONT 33640 History: Scrotal eval CT SCAN OF THE ABDOMEN AND PELVIS WITH CONTRAST FINDINGS: CT scan of the abdomen andpelvis was performed with intravenous contrast. One or more of the following dose reduction techniques were used: Automated exposure control, adjustment of the mA and/or KV according to patient size,and/or utilization of iterative reconstruction technique. There is fatty infiltration of the liver.. The portal vein is patent. No abnormality of the spleen, pancreas or adrenal glands is identified.No solid renal mass, hydronephrosis or renal stone is present. The gallbladder is unremarkable. No a denopathy, ascites or mass is seen. The abdominal aorta is normal in size in caliber. There is no evidence of intestinal obstruction or acute appendicitis. No free intraperitoneal air is identified. The urinary bladder is unremarkable. No acute fracture is identified. Images through the lung bases are unremarkable. Scrotal subcutaneous edema is present. The testicles appear to be small/atrophic. IMPRESSION: 1. No acute abnormality is identified. 2. Scrotal subcutaneous edema is present. The testicles appear to be small/atrophic. at 1604 Reported and signed by: Flako Carter MD Name: WILI MARTINS [facility] Phys: JEBMICHAEL Juan Rich APRN [address] [facility] : 1990 Age: 32 Sex: M [place], [place] [id number] No: [id number] Loc: N.ERST 5 Exam Date: 04/02/2023 Status: ADM IN PH: FAX: PAGE 1 Signed Report (CONTINUED) Patient Name: WILI MARTINS Unit No: [id number] EXAMS: CPT: [id number] CT ABD PELVIS W /CONT 57721 (Continued) CC: Juan Salinas Technologist: QUINN Morrow CTDI: 15.47 DLP: 1089.06Trscr Dt/Tm: 04/02/2023 (1604) by:[email or web address] Orig Print D/T: S: 04/02/2023 (1608) BATCH NO: N/A Name: WILI MARTINS [facility] Phys: LOR HernándeznohemiJuan MANAGING CONSULTANT [address] [facility] : 1990 Age: 32 Sex: [place] [id number] Loc: N.ERST 5 Exam Date: 04/02/2023 Status: ADM IN PH: FAX: PAGE 2 Signed Report- SCROTUM AND [id number] 13:30:00 [facility] 1990 Sex: MPatient Name: WILI MARTINS Unit No: [id number] EXAMS: CPT: [id number] US SCROTUM AND CNTS 41963 History:Scrotal pain. Scrotal ultrasonography was performed. Right testis measured 2 x 1 x 1.3 cm with multiple microcalcifications. Blood flow appears within normal limits. Left testis measured 1.6 x 1.1 x1 cm with microcalcifications. Blood flow appears within normal limits. Right epididymis measured 7 x 5 x 8 mm and left epididymis measured 9 x 9 x 9 mm. There is fairly marked thickening of the scrotal wall diffusely measuring 1.9 cm on the right and 1.6 cm on the left with soft tissue edema suggestive of cellulitis and/or inflammatory process. IMPRESSION: 1. Bilateral small sized testes consistent with the patient's known Klinefelter's syndrome. 2. Diffuse thickening and edema of the scrotalwall consistent with cellulitis. at 1330 Reported and signed by: Dash Perez MD CC: Juan Salinas Technologist: Tabatha Kahn Probe: Trscr Dt/Tm: 04/02/2023 (1330) by:Wil Orig Print D/T: S: 04/02/2023 (1333) BATCH NO: N/A Name: WILI MARTINS [facility] Phys: Juan Pretty APRN [address] [place] : 1990 Age: 32 Sex: M [place], [place] [address] Loc: N.ERS Exam Date: 04/02/2023 Status: REG ER PH: FAX: PAGE 1 Signed ReportBASI METABOLIC [id number] 12:44:00* Test Item Value Reference Range Interpretation Comme nts SODIUM (test code = NA) 134 mmol/L 135-145 L POTASSIUM (test code = K) 4.3 mmol/L 3.6-5.0 N CHLORIDE (test code = CL) 103 mmol/L 101-111 N CARBON DIOXIDE (test code = CO2) 22 mmol/L 21-31 N GLUCOSE (test code = GLU) 97 mg/dl 70-100 N BLOOD UREA NITROGEN (test code = BUN) 15 mg/dl 6-20 N GLOMERULAR FILTRATION RATE (test code = GFR) >=60 max estimate >60 The Glomerular Filtration Rate is a calculated parameterbased on serum Creatinine, patient age and sex. GFR valuesless than 60 mL/min/1.73 square meters are indicative ofChronic Kidney Disease. Values less than 15 mL/min/1.73square meters indicate Kidney failure. The calculation forGFR is based on the CKD-EPI (2020) calculation. This formulais race indifferent and is the recommended formula for GFRby the National Kidney Foundation for Adults.The GFR will not calculate if the sex is unknown or if thepatient's age is <18 years. CREATININE (test code = CREAT) 0.99 mg/dL 0.64-1.27 N CALCIUM (test code = CA) 8.5 mg/dL 8.5-10.5 N INDEX HEMOLYSIS (test code = HEMINDEX) 2 Index/DL See_Comment [Automated messa ge] The system which generated this result transmitted reference range: 1 NORMAL. The reference range was not used to interpret this result as normal/abnormal. INDEX ICTERIC (test code = ICTINDEX) 1 Index/DL See_Comment [Automated messa ge] The system which generated this result transmitted reference range: 1 NORMAL. The reference range was not used to interpret this result as normal/abnormal. INDEX LIPEMIA (test code = LIPINDEX) 0 Index/DL See_Comment [Automated messa ge] The system which generated this result transmitted reference range: 1 NORMAL. The reference range was not used to interpret this result as normal/abnormal. CBC W/AUTO [id number] 12:20:00* Test Item Value Reference Range Interpretation Comme nts WHITE BLOOD CELL (test code = WBC) 7.4 x10 3/uL 3.2-11.5 N RED BLOOD CELL (test code = RBC) 4.36 x10(6)/m 4.20-5.70 N HEMOGLOBIN (test code = HGB) 13.1 g/dL 12.9-17.3 N HEMATOCRIT (test code = HCT) 40.7 % 38.7-51.0 N MEAN CELL VOLUME (test code = MCV) 93 fL 80-100 N MEAN CELL HGB (test code = MCH) 30.0 pg 26.7-33.3 N MEAN CELL HGB CONCENTRATION (test code = MCHC) 32.2 g/dL 30.0-34.0 N RED CELL DISTRIBUTION WIDTH (test code = RDW) 13.5 % 11.3-14.5 N PLATELET COUNT (test code = PLT) 329 x10 3/uL 130-408 N MEAN PLATELET VOLUME (test c ode = MPV) 10.7 fL 8.6-12.6 N NEUTROPHIL % (test code = NT%) 76.9 % 40.0-70.0 H LYMPHOCYTE % (test code = LY%) 14.8 % 20-40 L MONOCYTE % (test code = MO%) 6.5 % 1-10 N EOSINOPHIL % (test code = EO%) 1.6 % 0.0-5.0 N BASOPHIL % (test code = BA%) 0.1 % 0.0-1.0 N NUCLEATED RBC % (test code = NRBC%) 0.0 % 0.0-0.9 N NEUTROPHIL # (test code = NT#) 5.7 x10 3/uL 1.6-7.2 N LYMPHOCYTE # (test code = LY#) 1.10 x10 3/uL 1.1-2.7 N MONOCYTE # (test code = MO#) 0.5 x10 3/uL 0.3-0.8 N EOSINOPHIL # (test code = EO#) 0.1 x10 3/uL 0.0-0.5 N IMMATURE GRANULOCYTE % (test code = IG%) 0.1 % 0.0-2.0 N BASOPHIL # (test code = BA#) 0.0 x10 3/uL 0.0-0.1 N UA RFLX MICR CULT IF [id number] 11:59:00* Test Item Value Reference Range Interpretation Comme nts UA COLOR (test code = COLU) YELLOW YELLOW UA APPEARANCE (test code = APPU) Clear CLEAR UA GLUCOSE DIPSTICK (test code = DGLUU) NEGATIVE NEGATIVE UA BILIRUBIN DIPSTICK (test code = BILU) NEGATIVE NEGATIVE UA KETONE DIPSTICK (test code = KETU) 1+ NEGATIVE A UA SPECIFIC GRAVITY (test code = SGU) 1.017 1.001-1.030 UA BLOOD DIPSTICK (test code = WILLIAN) NEGATIVE NEGATIVE UA PH DIPSTICK (test code = LORAINE) 5.0 5.0-9.0 UA PROTEIN DIPSTICK (test code = PROU) NEGATIVE NEGATIVE UA UROBILINOGEN DIPSTICK (test code = URO) NEGATIVE See_Comment [Automated DataCrowda ge] The system which generated this result transmitted reference range: <=1.0. The reference range was not used to interpret this result as normal/abnormal. UA NITRITE DIPSTICK (test code = GUANACO) NEGATIVE NEGATIVE UA ASCORBIC ACID DIPSTICK (test code = AAU) NEGATIVE UA LEUKOCYTE ESTERASE DIPSTICK (test code = LEUU) NEGATIVE NEGATIVE UA WBC (test code = WBCUR) 0-5 /HPF 0-5 UA RBC (test code = RBCU) 0-5 /HPF 0-5 UA EPITHELIAL CELLS (test code = EPIU) RARE /LPF NONE-FEW UA BACTERIA (test code = BACU) None /HPF NONE SEEN UA MUCUS (test code = MUCU) 1+ /LPF NONE SEEN Indication for culture: Dysuria/FrequencySpecimen Description: CLEAN CATCH
[2024-09-15] MEDS ORDERED: CEPHALEXIN 250 MG CAP ONE (04:08)
[2024-09-15] MEDS ORDERED: DIPHENHYDRAMINE 50 MG/ML VIAL ONE (04:08)
[2024-09-15] MEDS ORDERED: FAMOTIDINE 20 MG/2 ML VIAL IV ONE (04:08)
[2024-09-15] MEDS ORDERED: NA CHLORIDE 0.9% 100 ML ONE (04:08)
[2024-09-15] MEDS ORDERED: FLUCONAZOLE 100 MG TAB ONE (04:08)
[2024-09-15] MEDS ORDERED: CEFAZOLIN SODIUM 2 GM/VIAL ONE (04:09)
[2024-09-15] MEDS ORDERED: NA CHLORIDE 0.9% 1,000 ML ONE (04:09)
[2024-09-15] MEDS ORDERED: ONDANSETRON 4 MG/2 ML VIAL ONE (04:24)
[2024-09-15] MEDS ORDERED: MORPHINE 4 MG/ML SYR ONE (04:24)
[2024-09-15 05:00] LABS: Specific Gravity > 1.030 (1.005-1.030); Sqamous Epithelial <5 /HPF (None Seen); Urine Bacteria None Seen /HPF (<20); Urine Bilirubin NEGATIVE (Negative); Urine Blood Negative (Negative); Urine Clarity Clear (Clear); Urine Color Light-Yellow (Yellow); Urine Culture Reflex Order NOT NEEDED; Urine Glucose NEGATIVE (Negative); Urine Ketones NEGATIVE (Negative); Urine Microscopic Reflex YN ORDER UMIC; Urine Mucus Slight /HPF (None Seen); Urine Nitrite NEGATIVE (Negative); Urine Protein TRACE (Negative); Urine RBC <5 /HPF (None Seen); Urine Urobilinogen Normal (Normal); Urine WBC <5 /HPF (<5); Urine pH 5.5 (5.0-7.0)
[2024-09-15 05:11] LABS: Absolute Eosinophils 0.8 K/uL (0-0.5); Absolute Lymphocytes (CBC) 1.3 K/uL (0.7-4.9); Absolute Monocytes 0.5 K/uL (0.1-1.3); Absolute Neutrophil 5.5 K/uL (1.8-8.0); Basophils % 0.5 % (0-1.3); Eosinophils % 9.5 % (0-4.4); Hematocrit 41.9 % (39.6-49.0); Hemoglobin 13.6 g/dL (13.6-17.9); Lymphocytes % 16.3 % (15.3-44.8); MCHC 32.3 g/dL (32.0-36.0); MCV 92.7 fL (80-100); MPV 9.4 fL (7.6-11.3); Monocytes % 5.9 % (3.3-12.3); Neutrophils % 67.8 % (41.7-73.7); Nucleated Red Blood Cells % 0.1 % (0-0); Platelets 305 thou/uL (152-406); RBC Red Blood Cell Count 4.52 M/uL (4.33-5.43); Red Cell Distribution Width 14.7 % (12.1-15.2)
[2024-09-15] MEDS ORDERED: DIAZEPAM 5 MG TABLET ONE (05:15)
[2024-09-15 05:30] LABS: Albumin/Globulin Ratio 0.6 (1.1-1.8); Anion Gap 9.6 mEq/L (5.0-15.0); Bilirubin Total 0.2 mg/dL (0.2-1.0); Globulin 4.7 g/dL (2.3-3.5); Potassium 3.6 mEq/L (3.5-5.1); Protein, Total 7.7 g/dL (6.4-8.2)
--- NOTE | 2024-09-15 06:45 | RAD REPORT ---
EXAMINATION: CT ABDOMEN AND PELVIS WITH CONTRAST CLINICAL INDICATION: Male, 34 years old.ABD PAIN TECHNIQUE: CT abdomen and pelvis was performed, after the administration of IV contrast, as per depar tment protocol. Axial, sagittal and coronal reconstructions were obtained. One or more of the following dose reduction techniques were used: Automated exposure control, adjustment of the mA and/o r kV according to patient size, and/or iterative reconstruction. Unless otherwise specified, incidental findings do not require dedicated imaging follow-up. [id number]. COMPARISON: 06/29/2024 FINDINGS: LOWER CHEST: No acute process identified.No significant pericardial effusion. UPPER GI: No significant abnormality. LIVER: Hepatic steatosis, but otherwise unremarkable. GALLBLADDER/BILE DUCTS: Cholecystectomy. No significant biliary ductal dilatation.? PANCREAS: No mass, ductal dilation, or mary-pancreatic fluid. SPLEEN: Unremarkable. ADRENALS: No adrenal masses. KIDNEYS AND URETERS: No hydronephrosis. ABDOMINAL AORTA AND OTHER VESSELS: Normal caliber aorta and IVC. PERITONEUM: No abnormal free fluid. No free air. LYMPH NODES: No pathologic lymphadenopathy. ABDOMINAL WALL: Skin thickening at the umbilicus anterior bowel wall. No fluid collections identified . SMALL BOWEL/COLON: Small bowel has normal course and caliber. No colonic wall thickening or pericolon ic inflammatory changes.Normal appendix. Mild diverticulosis without diverticulitis. URINARY BLADDER: Underdistended but grossly unremarkable. REPRODUCTIVE ORGANS: No pathologic process. MUSCULOSKELETAL: No acute or suspicious osseous abnormality. ADDITIONAL FINDINGS: None. IMPRESSION: No acute or significant abnormalities seen in the abdomen or pelvis. Skin thickening and subcutaneous edema at the umbilicus could represent cellulitis. No fluid collection identified.
--- NOTE | 2024-09-15 06:50 | ER ---
Nurse's Notes [facility] Name: Neftali Miles Age: 34 yrs Sex: Male : 1990 Arrival Date: 09/15/2024 Time: 03:37 Bed 3 Private MD: Diagnosis: Dermatitis, unspecified;Allergic contact dermatitis due to adhesives;Cellulitis and acute lymphangitis of other sites-abdominal wall, periumbilical;Obesity, unspecified Presentation: 09/15 03:51 Chief complaint: Patient states: I had a miroslava in Jun and one of the incisions just has bm8 not been healing right. I have been packing and unpacking and repacking this wound for some time and on doxycycline for 5 days. its not showing any improvement. Coronavirus screen: Vaccine status: Patient reports receiving the 2nd dose of the covid vaccine. At this time, the client does not indicate any symptoms associated with coronavirus-19. Ebola Screen: Patient negative for fever greater than or equal to 101.5 degrees Fahrenheit, and additional compatible Ebola Virus Disease symptoms Patient denies exposure to infectious person. Patient denies travel to an Ebola-affected area in the 21 days before illness onset. No symptoms or risks identified at this time. Initial Sepsis Screen: Does the patient meet any 2 criteria? No. Patient's initial sepsis screen is negative. Does the patient have a suspected source of infection? No. Patient's initial sepsis screen is negative. Risk Assessment: Do you want to hurt yourself or someone else? Patient reports no desire to harm self or others. Onset of symptoms is unknown. 03:51 Method Of Arrival: Ambulatory bm8 03:51 Acuity: DEVAN 2 bm8 Triage Assessment: 03:54 General: Appears in no apparent distress. uncomfortable, Behavior is calm, cooperative, bm8 appropriate for age. Pain: Complains of pain in umbilical area and right lower quadrant Pain currently is 4 out of 10 on a pain scale. Quality of pain is described as sharp. EENT: No deficits noted. No signs and/or symptoms were reported regarding the EENT system. Neuro: No deficits noted. Level of Consciousness is awake, alert, obeys commands, Oriented to person, place, time, situation, Appropriate for age. Cardiovascular: Denies chest pain, Heart tones S1 S2 present Capillary refill < 3 seconds in bilateral fingers toes Patient's skin is warm and dry. Respiratory: Airway is patent Trachea midline Respiratory effort is even, unlabored, Respiratory pattern is regular, symmetrical, Breath sounds are clear bilaterally. GI: No signs and/or symptoms were reported involving the gastrointestinal system. : No signs and/or symptoms were reported regarding the genitourinary system. Derm: Abscess located on umbilical area is half dollar sized, has purulent drainage, is hot to touch, is red, post surgical wound care at home Reports burning, pain. Musculoskeletal: No signs and/or symptoms reported regarding the musculoskeletal system. Historical: - Allergies: 03:54 Adhesives; bm8 - Home Meds: 03:54 Doxycycline Oral [Active]; bm8 - PMHx: 03:54 fatty liver; pre-diabetic; bm8 - PSHx: 03:54 Cholecystectomy; bm8 - Immunization history:: Adult Immunizations up to date. - Infectious Disease History:: Denies. - Social history:: Smoking status: Patient denies any tobacco usage or history of. Screenin:52 [facility] ED Fall Risk Assessment (Adult) History of falling in the last 3 months, bm8 including since admission No falls in past 3 months (0 pts) Confusion or Disorientation No (0 pts) Intoxicated or Sedated No (0 pts) Impaired Gait No (0 pts) Mobility Assist Device Used No (0 pt) Altered Elimination No (0 pt) Score/Fall Risk Level 0 - 2 = Low Risk Oriented to surroundings, Maintained a safe environment, Educated pt \T\ family on fall prevention, incl call for assistance when getting out of bed, Provided non-skid footwear, Hourly rounding (assess needs \T\ fall precautionary measures) done, Used ambulatory aids as needed (educated on \T\ assisted with), Used gait belt as appropriate. Abuse screen: Denies threats or abuse. Nutritional screening: No deficits noted. Tuberculosis screening: No symptoms or risk factors identified. Assessment: 04:52 Reassessment: Patient appears in no apparent distress at this time. No changes from bm8 previously documented assessment. Patient and/or family updated on plan of care and expected duration. Pain level reassessed. Patient is alert, oriented x 3, equal unlabored respirations, skin warm/dry/pink. 06:07 Reassessment: Patient appears in no apparent distress at this time. Patient and/or bm8 family updated on plan of care and expected duration. Pain level reassessed. Patient is alert, oriented x 3, equal unlabored respirations, skin warm/dry/pink. pt is resting with eyes closed breathing is even unlabored with symmetrical rise and fall of chest. at bedside, awaiting CT results Patient states feeling better. Patient states symptoms have improved. 06:51 Reassessment: Patient appears in no apparent distress at this time. No changes from 8 previously documented assessment. Patient and/or family updated on plan of care and expected duration. Pain level reassessed. Patient is alert, oriented x 3, equal unlabored respirations, skin warm/dry/pink. instruction on wound care going forward provided verbally and written.. Patient states feeling better. Patient states symptoms have improved. Vital Signs: 03:51 BP 135 / 88; Pulse 79; Resp 17; Temp 98.7; Pulse Ox 96% ; Weight 145.15 kg; Height 10 bm8 ft. 0 in. ; Pain 4/10; 04:49 Pulse 76; Resp 18; Temp 98.7; Pulse Ox 100% ; Pain 4/10; bm8 06:07 BP 109 / 70; Pulse 73; Resp 18; Temp 98.7; Pulse Ox 94% ; Pain 2/10; bm8 06:51 BP 122 / 77; Pulse 86; Resp 18; Temp 98.7; Pulse Ox 96% ; Pain 0/10; bm8 03:51 Body Mass Index 15.62 (145.15 kg, 304.8 cm) bm8 03:51 Pain Scale: Adult bm8 04:49 Pain Scale: Adult bm8 06:07 Pain Scale: Adult bm8 06:51 Pain Scale: Adult bm8 Bryan Coma Score: 04:52 Eye Response: spontaneous(4). Motor Response: obeys commands(6). Verbal Response: bm8 oriented(5). Total: 15. 06:07 Eye Response: spontaneous(4). Motor Response: obeys commands(6). Verbal Response: bm8 oriented(5). Total: 15. 06:51 Eye Response: spontaneous(4). Motor Response: obeys commands(6). Verbal Response: bm8 oriented(5). Total: 15. ED Course: 03:38 Patient arrived in ED. [email or web address] 03:40 Cam Arellano MD is Attending Physician. [facility] 03:51 Dung Delgadillo, RN is Primary Nurse. bm8 03:54 Triage completed. bm8 03:54 Arm band placed on right wrist. bm8 04:10 Radiology exam delayed due to IV insertion attempt and/or patient not having nj appropriate IV at this time. 04:14 Missed attempt(s): 20 gauge in left antecubital area. Bleeding controlled, band aid rv1 applied, catheter tip intact. 04:14 Inserted saline lock: 20 gauge in right antecubital area, using aseptic technique. rv1 Blood collected. Flushed with 10 mL NS. 04:14 Comprehensive Metabolic Panel Sent. rv1 04:14 Urinalysis w/ reflexes Sent. rv1 04:14 CBC with Diff Sent. rv1 04:48 No provider procedures requiring assistance completed. Lab(s) recollected, by me, sent bm8 to lab. Inserted saline lock: 20 gauge in right antecubital area, using aseptic technique. Blood collected. Flushed with 10 mL NS. Patient maintains SpO2 saturation greater than 95% on room air. 04:52 Patient has correct armband on for positive identification. Placed in gown. Bed in low bm8 position. Call light in reach. Side rails up X 1. Adult w/ patient. Client placed on continuous cardiac and pulse oximetry monitoring. NIBP monitoring applied. advertising agency manager on. Pulse ox on. NIBP on. Door closed. Noise minimized. Warm blanket given. Pillow given. Verbal reassurance given. Head of bed elevated. 05:02 CT Abd/Pelvis - IV Contrast Only In Process Unspecified. EDMS 06:49 Patricio Aviles MD is Referral Physician. [facility] 06:51 Provided Education on: post er care and wound care. follow up closely with pcp. bm8 06:51 IV discontinued, intact, bleeding controlled, No redness/swelling at site. Pressure bm8 dressing applied, x2. Administered Medications: 04:29 Drug: Famotidine IVP 40 mg IVP once; dilute with 10 mL 0.9% NaCl; give over 2 minutes bm8 Route: IVP; Site: left antecubital; 05:48 Follow up: Response: No adverse reaction bm8 04:29 Drug: ceFAZolin IVPB 2 grams IVPB once over 30 mins; (mix in 100 mL NS) Route: IVPB; bm8 Infused Over: 30 mins; Site: left antecubital; 05:48 Follow up: Response: No adverse reaction; IV Status: Completed infusion; IV Intake: bm8 100ml 04:29 Drug: Fluconazole PO 200 mg PO once Route: PO; bm8 05:48 Follow up: Response: No adverse reaction bm8 04:29 Drug: Cephalexin PO 500 mg PO once Route: PO; bm8 05:48 Follow up: Response: No adverse reaction bm8 04:30 Drug: NS 0.9% IV 1000 ml IV at 1000 ml once; to be given as a bolus over 60 minutes bm8 Route: IV; Rate: 1000 ml; Site: left antecubital; 05:49 Follow up: Response: No adverse reaction; IV Status: Completed infusion; IV Intake: bm8 1000ml 04:30 Drug: diphenhydrAMINE IVP 50 mg IVP once Route: IVP; Site: left antecubital; bm8 05:48 Follow up: Response: No adverse reaction bm8 04:51 Drug: morphine IVP or IV 4 mg IVP once over 4 mins Route: IVP; Infused Over: 4 mins; bm8 Site: left antecubital; 05:47 Follow up: Response: No adverse reaction bm8 04:51 Drug: Ondansetron IVP 4 mg IVP once; over 2 minutes Route: IVP; Site: left antecubital; bm8 05:47 Follow up: Response: No adverse reaction bm8 05:18 Drug: Diazepam PO 10 mg PO once Route: PO; bm8 05:47 Follow up: Response: No adverse reaction bm8 Medication: 04:52 VIS not applicable for this client. bm8 Intake: 05:48 IV: 100ml; Total: 100ml. bm8 05:49 IV: 1000ml; Total: 1100ml. bm8 Outcome: 06:49 Discharge ordered by MD. sánchez 06:54 Discharged to home ambulatory, with family, taz 06:54 Condition: stable 06:54 Discharge instructions given to patient, family, Instructed on discharge instructions, follow up and referral plans. no drinking with medication, no driving heavy equipment, medication usage, safety practices, wound care, Demonstrated understanding of instructions, follow-up care, medications, Prescriptions given X x5 07:02 Patient left the ED. bm8 Signatures: Dispatcher [employer] EDCam Mahan MD MD cha Jordan, Nathan nj Jeffries, Jennifer [email or web address] Ariana Huggins rv1 Dung Delgadillo, RN RN bm8
--- NOTE | 2024-09-15 06:50 | EDPHYS ---
Physician Documentation [facility] Name: Neftali Miles Age: 34 yrs Sex: Male : 1990 Arrival Date: 09/15/2024 Time: 03:37 Bed 3 Private MD: ED Physician Cam Arellano HPI: 09/15 04:15 This 34 yrs old Male presents to ER via Ambulatory with complaints of Wound gonzalo Infection. Historical: - Allergies: 03:54 Adhesives; bm8 - Home Meds: 03:54 Doxycycline Oral [Active]; bm8 - PMHx: 03:54 fatty liver; pre-diabetic; bm8 - PSHx: 03:54 Cholecystectomy; bm8 - Immunization history:: Adult Immunizations up to date. - Infectious Disease History:: Denies. - Social history:: Smoking status: Patient denies any tobacco usage or history of. ROS: 04:18 Constitutional: Negative for fever, chills, and weight loss, Eyes: Negative for injury, gonzalo pain, redness, and discharge, ENT: Negative for injury, pain, and discharge, Neck: Negative for injury, pain, and swelling, Cardiovascular: Negative for chest pain, palpitations, and edema, Respiratory: Negative for shortness of breath, cough, wheezing, and pleuritic chest pain, Back: Negative for injury and pain, : Negative for injury, bleeding, discharge, and swelling, MS/Extremity: Negative for injury and deformity, Neuro: Negative for headache, weakness, numbness, tingling, and seizure, Psych: Negative for depression, anxiety, suicide ideation, homicidal ideation, and hallucinations, Allergy/Immunology: Negative for hives, rash, and allergies, Endocrine: Negative for neck swelling, polydipsia, polyuria, polyphagia, and marked weight changes, Hematologic/Lymphatic: Negative for swollen nodes, abnormal bleeding, and unusual bruising, 04:18 Abdomen/GI: Positive for abdominal pain, abdominal distension, of the umbilical area, Exam: 04:18 Constitutional: This is a well developed, well nourished patient who is awake, alert, gonzalo and in no acute distress. Head/Face: Normocephalic, atraumatic. Eyes: Pupils equal round and reactive to light, extra-ocular motions intact. Lids and lashes normal. Conjunctiva and sclera are non-icteric and not injected. Cornea within normal limits. Periorbital areas with no swelling, redness, or edema. ENT: Nares patent. No nasal discharge, no septal abnormalities noted. Tympanic membranes are normal and external auditory canals are clear. Oropharynx with no redness, swelling, or masses, exudates, or evidence of obstruction, uvula midline. Mucous membranes moist. Neck: Trachea midline, no thyromegaly or masses palpated, and no cervical lymphadenopathy. Supple, full range of motion without nuchal rigidity, or vertebral point tenderness. No Meningismus. Chest/axilla: Normal chest wall appearance and motion. Nontender with no deformity. No lesions are appreciated. Cardiovascular: Regular rate and rhythm with a normal S1 and S2. No gallops, murmurs, or rubs. Normal PMI, no JVD. No pulse deficits. Respiratory: Lungs have equal breath sounds bilaterally, clear to auscultation and percussion. No rales, rhonchi or wheezes noted. No increased work of breathing, no retractions or nasal flaring. Back: No spinal tenderness. No costovertebral tenderness. Full range of motion. Male : Normal genitalia with no discharge or lesions. MS/ Extremity: Pulses equal, no cyanosis. Neurovascular intact. Full, normal range of motion., bilateral aka Neuro: Awake and alert, GCS 15, oriented to person, place, time, and situation. Cranial nerves II-XII grossly intact. Motor strength 5/5 in all extremities. Sensory grossly intact. Cerebellar exam normal. Normal gait. Psych: Awake, alert, with orientation to person, place and time. Behavior, mood, and affect are within normal limits. 04:18 Abdomen/GI: Bowel sounds: normal, Palpation: mild abdominal tenderness, in the umbilical area, Liver: no appreciated palpable abnormalities, Hernia: not appreciated, 04:18 Skin: abscess, not appreciated, cellulitis, that is minimal, induration, that is mild is noted, Vital Signs: 03:51 BP 135 / 88; Pulse 79; Resp 17; Temp 98.7; Pulse Ox 96% ; Weight 145.15 kg; Height 10 bm8 ft. 0 in. ; Pain 4/10; 04:49 Pulse 76; Resp 18; Temp 98.7; Pulse Ox 100% ; Pain 4/10; bm8 06:07 BP 109 / 70; Pulse 73; Resp 18; Temp 98.7; Pulse Ox 94% ; Pain 2/10; bm8 06:51 BP 122 / 77; Pulse 86; Resp 18; Temp 98.7; Pulse Ox 96% ; Pain 0/10; bm8 03:51 Body Mass Index 15.62 (145.15 kg, 304.8 cm) bm8 03:51 Pain Scale: Adult bm8 04:49 Pain Scale: Adult bm8 06:07 Pain Scale: Adult bm8 06:51 Pain Scale: Adult bm8 Bryan Coma Score: 04:52 Eye Response: spontaneous(4). Motor Response: obeys commands(6). Verbal Response: bm8 oriented(5). Total: 15. 06:07 Eye Response: spontaneous(4). Motor Response: obeys commands(6). Verbal Response: bm8 oriented(5). Total: 15. 06:51 Eye Response: spontaneous(4). Motor Response: obeys commands(6). Verbal Response: bm8 oriented(5). Total: 15. MDM: 03:40 Medical Screening Exam initiated gonzalo 04:22 Differential Diagnosis sepsis. Differential diagnosis: non-specific abd pain. Data [facility] reviewed: vital signs, nurses notes. Consideration of Admission/Observation Escalation of care including admission/observation considered. I considered the following discharge prescriptions or medication management in the emergency department Medications were administered in the Emergency Department. See MAR. Independent interpretation of the following test(s) in the Emergency Department CT Scan: My interpretation is ct abd pelvis. Test considered but Not performed: Ultrasound no abd usg. Historians other than the Patient: Spouse/Significant Other: well informed. Care significantly affected by the following chronic conditions: Diabetes, Obesity. 09/15 04:01 Order name: CBC with Diff; Complete Time: 05:29 [facility] 09/15 04:01 Order name: Comprehensive Metabolic Panel; Complete Time: 05:51 [facility] 09/15 04:01 Order name: Urinalysis w/ reflexes; Complete Time: 05:11 [facility] 09/15 04:01 Order name: CT Abd/Pelvis - IV Contrast Only [facility] 09/15 04:37 Order name: Wound dressing: wet to dry; Complete Time: 04:50 gonzalo Administered Medications: 04:29 Drug: Famotidine IVP 40 mg IVP once; dilute with 10 mL 0.9% NaCl; give over 2 minutes bm8 Route: IVP; Site: left antecubital; 05:48 Follow up: Response: No adverse reaction bm8 04:29 Drug: ceFAZolin IVPB 2 grams IVPB once over 30 mins; (mix in 100 mL NS) Route: IVPB; bm8 Infused Over: 30 mins; Site: left antecubital; 05:48 Follow up: Response: No adverse reaction; IV Status: Completed infusion; IV Intake: bm8 100ml 04:29 Drug: Fluconazole PO 200 mg PO once Route: PO; bm8 05:48 Follow up: Response: No adverse reaction bm8 04:29 Drug: Cephalexin PO 500 mg PO once Route: PO; bm8 05:48 Follow up: Response: No adverse reaction bm8 04:30 Drug: NS 0.9% IV 1000 ml IV at 1000 ml once; to be given as a bolus over 60 minutes bm8 Route: IV; Rate: 1000 ml; Site: left antecubital; 05:49 Follow up: Response: No adverse reaction; IV Status: Completed infusion; IV Intake: bm8 1000ml 04:30 Drug: diphenhydrAMINE IVP 50 mg IVP once Route: IVP; Site: left antecubital; bm8 05:48 Follow up: Response: No adverse reaction bm8 04:51 Drug: morphine IVP or IV 4 mg IVP once over 4 mins Route: IVP; Infused Over: 4 mins; bm8 Site: left antecubital; 05:47 Follow up: Response: No adverse reaction bm8 04:51 Drug: Ondansetron IVP 4 mg IVP once; over 2 minutes Route: IVP; Site: left antecubital; bm8 05:47 Follow up: Response: No adverse reaction bm8 05:18 Drug: Diazepam PO 10 mg PO once Route: PO; bm8 05:47 Follow up: Response: No adverse reaction bm8 Disposition Summary: 09/15/24 06:49 Discharge Ordered Notes: Location: Home gonzalo Problem: new gonzalo Symptoms: have improved gonzalo Condition: Stable gonzalo Diagnosis - Dermatitis, unspecified gonzalo - Allergic contact dermatitis due to adhesives gonzalo - Cellulitis and acute lymphangitis of other sites - abdominal wall, periumbilical gonzalo - Obesity, unspecified gonzalo Followup: gonzalo - With: Private Physician - When: 2 - 3 days - Reason: Recheck today's complaints, Continuance of care, Re-evaluation by your physician Followup: [facility] - With: Patricio Aviles MD - When: 2 - 3 days - Reason: Recheck today's complaints, Continuance of care, Re-evaluation by your physician Discharge Instructions: - Discharge Summary Sheet gonzalo - Cellulitis, Adult [facility] - Contact Dermatitis gonzalo - Obesity, Adult gonzalo - Rash, Adult gonzalo - Cellulitis, Adult, [id number] gonzalo - Rash, Adult, [id number] gonzalo - Contact Dermatitis, [id number] [facility] Forms: - Medication Reconciliation Form [facility] - Antibiotic Education [facility] - Prescription Opioid Use [facility] - Patient Portal Instructions [facility] - Leadership Thank You Letter [facility] - Work release form bm8 Prescriptions: - Cephalexin 500 mg Oral Capsule - take 1 capsule ORAL route every 6 hours for 10 days; 40 capsule; Refills: 0, [facility] Product Selection Permitted - Hydroxyzine HCl 25 mg Oral Tablet - take 1 tablet ORAL route every 6 hours As needed; 30 tablet; Refills: 0, [facility] Product Selection Permitted - Pepcid 20 mg Oral tablet - take 1 tablet ORAL route every 12 hours for 21 days; 42 tablet; Refills: 0, [facility] Product Selection Permitted - Doxycycline Hyclate 100 mg Oral tablet - take 1 tablet ORAL route every 12 hours; 14 tablet; Refills: 0, Product [facility] Selection Permitted - Fluconazole 200 mg Oral tablet - take 1 tablet ORAL route one time take one tab weekly x 4 weeks; 4 tablet; [facility] Refills: 0, Product Selection Permitted Signatures: Dispatcher [employer] Cam Hutson MD MD cha McDonald, Brad, RN RN bm8 Corrections: (The following items were deleted from the chart) 04:02 04:02 CBC+H.LAB.BRZ ordered. EDMS EDMS 04:02 04:02 COMPREHENSIVE METABOLIC PANEL+C.LAB.BRZ ordered. EDMS EDMS 04:02 04:02 Urinalysis+U.LAB.BRZ ordered. EDMS EDMS 04:02 04:02 Abdomen Pelvis W Con+CT.RAD.BRZ ordered. EDMS EDMS
[2024-09-15 12:30] VITALS: TEMP 98.7
[2024-09-15 12:35] VITALS: BP 122/77; O2SAT 96
== END 2024-09-15 07:02 | disposition home or self-care (01) ==
LOC: ER 03:37
DX: L03.311 Cellulitis of abdominal wall (principal); L23.1 Allergic contact dermatitis due to adhesives; L00-L99 Diseases of the skin and subcutaneous tissue; E66.9 Obesity, unspecified
CPT/HCPCS: 96365; 85025; 81001; 36415; 80053; 74177; 96375; 99285; Q9967; J1200; J2405; J7030

== ENCOUNTER 2024-09-23 09:44 | Inpatient (IN) | payer OTHER ==
--- OUTSIDE RECORDS SUMMARY | 2024-09-23 09:47 | XMS REPORT | Continuity of Care Document ---
Author Name Unknown Address [address] [facility] [address] [place] [address] [facility] thconnect Address [address] [facility] 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 94 ON 9 [id number] 2023 00:00:00 Problems Condition Name Condition Details Condition Category Status Onset Date Resolution Date Last Treatment Date Treating Clinician Comments Source Elevated liver function tests Elevated liver function tests Disease Active 2023-09 00:00: 00 Kaitlynn callahan Hospital discharge follow-up Hospital discharge follow-up Disease Active 2023-09 00:00: 00 Kaitlynn callahan Well adult exam Well adult exam Disease Active 2023-09 00:00: 00 Kaitlynn callahan JUANITA on CPAP JUANITA on CPAP Disease Active Kaitlynn callahan Morbid obesity Morbid obesity Disease Active Kaitlynn Seybold - Externa l Prediabete s Prediabete s Disease Active Kaitlynn Seybold - Externa l 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 Kaitlynn Seybold - Externa l Allergies, Adverse Reactions, Alerts Allergy Name Allergy Type Status Severity Reaction(s) Onset Date Inactive Date Treating Clinician Comments Source No Known Allergie s DA Active U 04-02 00:00: 00 [facility] Social History Social Habit Start Date Stop Date Quantity Comments Source Sexual orientation Delvis pitts Seerlinlaura - External History of Occupation Kaitlynn erlinlaura - External Tobacco use and exposure 2024-07-14 00:00:00 2024-07-14 00:00:00 Smokeless tobacco non-user Kaitlynn Ignacia - External Alcoholic beverage intake 2024-07-14 00:00:00 2024-07-14 00:00:00 Current drinker of alcohol (finding) Kaitlynn erlinlaura - External History of Social function 2024-07-14 00:00:00 2024-07-14 00:00:00 Kaitlynn erlinlaura - External Education 2024-07-14 00:00:00 2024-07-14 00:00:00 15 Kaitlynn Millslaura - External Alcohol Comment 2024-07-14 00:00:00 2024-07-14 00:00:00 rarely Kaitlynn Ignacia - External Sex 2022-12-26 21:33:05 2022-12-26 21:33:05 Male (finding) Kaitlynnbryant Beth - External Sex assigned at 1990 00:00:00 1990 00:00:00 Kaitlynnbryant Millsold - External Smoking Status Start Date Stop Date Source Never smoked tobacco Kaitlynn Geneold - External Medications Ordered Medication Name Filled Medication Name Start Date Stop Date Current Medication? Ordering Clinician Indication Dosage Frequency Signature (SIG) Comments Components Source Ciprofloxac in-dexAMETH asone 0.3-0.1 % otic Suspension 2023-09 00:00: 00 07-20 05:59 :00 Yes [id number] 3[drp] Q.5D Place 3 drops into both ears 2 times daily for 5 days. Kaitlynn Beth - Externa l Vital Signs Vital Name Observation Time Observation Value Comments S ource Systolic blood pressure 2024-07-14 16:15:00 106 mm[Hg] Kaitlynn Millso ld - External Diastolic blood pressure 2024-07-14 16:15:00 81 mm[Hg] Kaitlynn Millso ld - External Body temperature 2024-07-14 16:15:00 36.83 Cielo Kaitlynn Beth - External Body height 2024-07-14 16:15:00 182.9 cm Marianne Millsold - External Body weight 2024-07-14 16:15:00 145.605 kg Marianne ey Seybold - External BMI 2024-07-14 16:15:00 43.54 kg/m2 Marianne ey Seybold - External Encounters Start Date/Time End Date/Time Encounter Type Admission Type Attending [facility] Care Department Encounter ID Source 2024-10-12 09:00:00 2024-10-12 09:00:00 Outpatient FIORELLA MCFARLAND [id number] Kaitlynn Ignaica 2024-10-05 11:15:00 2024-10-05 11:15:00 Outpatient FIORELLA MCFARLAND [id number] Kaitlynn will 2024-09-04 10:00:00 2024-09-04 10:00:00 Outpatient YASMIN FLORES [id number] Kaitlynn Ignacia 2024-09-04 00:00:00 2024-09-04 00:00:00 Outpatient MD KAITLYNN ROJAS [id number] Kaitlynn Genelaura 2024-07-30 00:00:00 2024-07-30 00:00:00 Outpatient FIORELLA MCFARLAND [id number] Kaitlynn will 2024-07-15 00:00:00 2024-07-15 00:00:00 Outpatient FIORELLA MCFARLAND [id number] Kaitlynn will 2024-07-14 11:30:00 2024-07-14 11:30:00 Outpatient FIORELLA MCFARLAND [id number] Kaitlynn Beth 2023-05-09 09:00:00 2023-05-09 10:08:00 Emergency EM Patrice Ramos HCANW ANTONIO [id number] 96 [facility] 2023-04-02 15:41:00 2023-04-03 19:35:00 Inpatient EM Cecilio Stoner HCANW MED [id number] 46 [facility] Results Test Description Test Time Test Comments Results Result Co mments Source SED [id number] 18:57:00* Test Item Value Reference Range Interpretation Comme nts SED RATE (test code = SEDW) 71 mm/hr 0-15 H - CT ABD PELVIS [id number] 16:04:00 [facility] 1990 Sex: MPatient Name: WILI MARTINS Unit No: [id number] EXAMS: CPT: [id number] CT ABD PELVIS W/CONT [id number] History: Scrotal eval CT SCAN OF THE ABDOMEN AND PELVIS WITH CONTRAST FINDINGS: CT scan of the abdomen and pelvis was performed with intravenous contrast. One or more of the following dose reduction techniques were used: Automated exposure control, adjustment of the mA and/or KV according to patient size, and/or utilization of iterative reconstruction technique. There is fatty infiltration of the liver..The portal vein is patent. No abnormality of [...] fracture is identified. Images through the lung basesare unremarkable. Scrotal subcutaneous edema is present. The testicles appear to be small/atrophic.IMPRESSION: 1. No acute abnormality is identified. 2. Scrotal subcutaneous edema is present. The testicles appear to be small/atrophic. at 1604 Reported and signed by: Flako Carter MD Name: WILI MARTINS [facility] Phys: HOLFE - SalniasObi songnando COMPLIANCE MONITOR [address] [place] : 1990 Age: 32 Sex: [place] [address] Loc: N.ERST 5 Exam Date: 04/02/2023 Status: ADM IN PH: FAX: PAGE 1 Signed Report (CONTINUED) Patient Name: WILI MARTINS Unit No: [id number] EXAMS: CPT: [id number] CT ABD PELVIS W/CONT [id number] (Continued) CC: Juan Salinas Technologist: QUINN Morrow CTDI: 15.47 DLP: 1089.06Trscr Dt/Tm: 04/02/2023 (1604) by:[email or web address] Orig Print D/T: S: 04/02/2023 (1608) BATCH NO: N/A Name: WILI MARTINS [facility] Phys: LOR - Salinas,Juan COMPLIANCE MONITOR [address] [facility] 1990 Age: 32 Sex: [place] [address] Loc: N.ERST 5 Exam Date: 04/02/2023 Status: ADM IN PH: FAX: PAGE 2 Signed Report- SCROTUM AND [id number] 13:30:[facility] 1990 Sex: MPatient Name: WILI MARTINS Unit No: [id number] EXAMS: CPT: [id number] US SCROTUM AND [facility] [id number] History: Scrotal pain. Scrotal ultrasonography was performed. Right testis measured 2 x 1 x 1.3 cm with multiple microcalcifications. Blood flow appears within normal limits. Left testis measured 1.6 x 1.1 x1 cm with microcalcifications. Blood flow appears within normal limits. Right epididymis measured 7x 5 x 8 mm and left epididymis [...] 2. Diffuse thickening and edema of the scrotal wall consistent with cellulitis. at 1330 Reported and signed by: Dash Perez MD CC: Juan Salinas Technologist: Tabatha Kahn Probe: Trscr Dt/Tm: 04/02/2023 (1330) by:Wil Orig Print D/T: S: 04/02/2023 (1333) BATCH NO: N/A Name: WILI MARTINS [facility] Phys: Juan Pretty APRN [address] : 1990 Age: 32 Sex: M [place], [place] [address] Loc: N.ERS Exam Date: 04/02/2023 Status: REG ER PH: FAX: PAGE 1 Signed ReportBASIC METABOLIC [id number] 12:44:00* Test Item Value Reference Range Interpretation [...] calculation forGFR is based on the CKD-EPI (202) calculation. This formulais race indifferent and is [...] interpret this result as normal/abnormal. CBC W/AUTO [id number] 12:20:00* Test Item Value Reference Range Interpretation [...] 0.0-0.1 N UA RFLX MICR CULT IF [id number] 11:59:00* Test Item Value Reference Range Interpretation [...] (test code = URO) NEGATIVE See_Comment [Automated messa ge] The system which [...]
[2024-09-23] MEDS ORDERED: VANCOMYCIN 1 GM/VIAL ONE (10:36)
[2024-09-23] MEDS ORDERED: NA CHLORIDE 0.9% 250 ML ONE (10:36)
[2024-09-23] MEDS ORDERED: NA CHLORIDE 0.9% 100 ML ONE (10:37)
[2024-09-23] MEDS ORDERED: PIPERACIL/TAZO 3.375 GM VIAL IV ONE (10:37)
--- NOTE | 2024-09-23 11:28 | RAD REPORT ---
EXAMINATION: US Abdomen Exam Complete CLINICAL INDICATION: Male, 34 years, [facility] MAIN N post surgical pain Bed: TECHNIQUE: Grayscale and color flow ultrasonography of the abdomen was performed. Additional evaluati on of the abdominal wall adjacent to the open wound/ulcer region was also performed. COMPARISON: No prior exam. FINDINGS: LIVER: Increased echogenicity with reduced sonographic penetration and without focal mass. Limited vi sualization of the main portal vein. GALLBLADDER: Gallbladder previously surgically removed. No evidence of intra or extrahepatic biliary ductal dilation, although visualization of the common bile duct is limited given midline bowel gas. RIGHT KIDNEY: Right renal length measurement: 10.1 cm. Normal in echogenicity and size. No calculus, solid mass or hydronephrosis. LEFT KIDNEY: Left renal length measurement: 10.0 cm. Normal in echogenicity and size. No calculus, s olid mass or hydronephrosis. SPLEEN: Normal in echogenicity, with length of 10.9 cm PANCREAS: Mostly obscured by overshadowing bowel gas. Visualized aspects of the pancreatic head are u nremarkable. AORTA AND INFERIOR VENA CAVA: Visualized segments of the aorta and inferior vena cava are normal. ASCITES: None. ADDITIONAL FINDINGS: No fluid collections or fluid containing abnormal tracts seen adjacent to the op en wound/ulcer region. IMPRESSION: Diffuse hepatic parenchymal hyperechogenicity suggesting steatosis. Structures in the midline including portions of the spleen and the hepatic hilum. No evidence of fluid collections or fluid-containing tracts adjacent to the abdominal wall open wound /ulcer region.
[2024-09-23] MEDS ORDERED: NYSTATIN 100MU/GM CREAM 15GM TOP ONE (11:56)
[2024-09-23 12:30] LABS: Absolute Eosinophils 1.4 K/uL (0-0.5); Absolute Monocytes 0.6 K/uL (0.1-1.3); Absolute Neutrophil 5.6 K/uL (1.8-8.0); Basophils % 0.2 % (0-1.3); Eosinophils % 16.7 % (0-4.4); Hemoglobin 14.4 g/dL (13.6-17.9); Lymphocytes % 11.7 % (15.3-44.8); MCH 30.3 pg (27.0-35.0); MCHC 33.6 g/dL (32.0-36.0); MCV 90.4 fL (80-100); MPV 8.3 fL (7.6-11.3); Monocytes % 6.5 % (3.3-12.3); Neutrophils % 64.9 % (41.7-73.7); Nucleated Red Blood Cells % 0.1 % (0-0); Platelets 326 thou/uL (152-406); RBC Red Blood Cell Count 4.76 M/uL (4.33-5.43); Red Cell Distribution Width 14.5 % (12.1-15.2)
[2024-09-23 12:37] LABS: PT Prothrombin Time 13.1 SECONDS (9.4-12.5); PTT, Activated Partial Thromb 41.4 SECONDS (24.3-36.9); Protime INR 1.18
[2024-09-23 12:49] LABS: Albumin/Globulin Ratio 0.6 (1.1-1.8); Anion Gap 6.8 mEq/L (5.0-15.0); Bilirubin Total 0.6 mg/dL (0.2-1.0); Globulin 4.7 g/dL (2.3-3.5); Potassium 3.8 mEq/L (3.5-5.1); Protein, Total 7.7 g/dL (6.4-8.2)
--- NOTE | 2024-09-23 12:57 | ER ---
Nurse's Notes [facility] Name: Neftali Miles Age: 34 yrs Sex: Male : 1990 Arrival Date: 09/23/2024 Time: 09:44 Bed 15 Private MD: Diagnosis: Abdominal wall infection, surgical complication Presentation: 09/23 09:58 Chief complaint: Patient states: just had an appointment with Dr. Aviles, he said he iw needed to cut out the inflamed part of my incision because it's infected , had cholecystectomy on Jun 29. Coronavirus screen: At this time, the client does not indicate any symptoms associated with coronavirus-19. Ebola Screen: No symptoms or risks identified at this time. Initial Sepsis Screen: Does the patient meet any 2 criteria? No. Patient's initial sepsis screen is negative. Does the patient have a suspected source of infection? No. Patient's initial sepsis screen is negative. Risk Assessment: Do you want to hurt yourself or someone else? Patient reports no desire to harm self or others. Onset of symptoms was June 2024. 09:58 Method Of Arrival: Ambulatory iw 09:58 Acuity: DEVAN 3 iw Historical: - Allergies: 10:34 Adhesives; tm6 - PMHx: 10:34 fatty liver; pre-diabetic; tm6 - PSHx: 10:34 Cholecystectomy; tm6 - Immunization history:: Flu vaccine is not up to date. - Infectious Disease History:: Denies. - Social history:: Smoking status: Patient denies any tobacco usage or history of. Screenin:46 [facility] ED Fall Risk Assessment (Adult) History of falling in the last 3 months, tm6 including since admission No falls in past 3 months (0 pts) Confusion or Disorientation No (0 pts) Intoxicated or Sedated No (0 pts) Impaired Gait No (0 pts) Mobility Assist Device Used No (0 pt) Altered Elimination No (0 pt) Score/Fall Risk Level 0 - 2 = Low Risk Oriented to surroundings, Maintained a safe environment, Educated pt \T\ family on fall prevention, incl call for assistance when getting out of bed. Abuse screen: Denies threats or abuse. Denies injuries from another. Nutritional screening: No deficits noted. Tuberculosis screening: No symptoms or risk factors identified. Assessment: 10:46 General: Appears in no apparent distress. Behavior is calm, cooperative. Pain: tm6 Complains of pain in umbilical area Pain currently is 3 out of 10 on a pain scale. Neuro: Level of Consciousness is awake, alert, obeys commands, Oriented to person, place, time, situation. Cardiovascular: Patient's skin is warm and dry. Respiratory: Airway is patent Respiratory effort is even, unlabored, Respiratory pattern is regular, symmetrical. GI: Abdomen is round. : No signs and/or symptoms were reported regarding the genitourinary system. EENT: No signs and/or symptoms were reported regarding the EENT system. Derm: Reports pain that is 3 out of 10 on a pain scale. umbilical/surgical area. Musculoskeletal: No signs and/or symptoms reported regarding the musculoskeletal system. 11:32 Reassessment: Patient and/or family updated on plan of care and expected duration. Pain tm6 level reassessed. Patient is alert, oriented x 3, equal unlabored respirations, skin warm/dry/pink. 12:05 General: Appears in no apparent distress. obese, Behavior is calm, cooperative, me1 appropriate for age, Reports just had an appointment with Dr. Aviles, he said he needed to cut out the inflamed part of my incision because it's infected , had cholecystectomy on Jun 29. Pain: Complains of pain in abdomen and umbilical area Pain does not radiate. Pain currently is 3 out of 10 on a pain scale. at worst was 10 out of 10 on a pain scale. Quality of pain is described as aching, stinging, Pain began gradually, Is continuous. Neuro: Level of Consciousness is awake, alert, obeys commands, Oriented to person, place, time, situation, Appropriate for age. Cardiovascular: Patient's skin is warm and dry. Respiratory: Airway is patent Respiratory effort is even, unlabored, Respiratory pattern is regular, symmetrical. GI: Abdomen is round. : No signs and/or symptoms were reported regarding the genitourinary system. EENT: No signs and/or symptoms were reported regarding the EENT system. Derm: Wound noted umbilical area Rash noted that is red, raised, all over body. Reports pain just had an appointment with Dr. Aviles, he said he needed to cut out the inflamed part of my incision because it's infected , had cholecystectomy on Jun 29. Musculoskeletal: No signs and/or symptoms reported regarding the musculoskeletal system. Vital Signs: 09:58 BP 125 / 82; Pulse 89; Resp 18; Temp 97.6; Pulse Ox 95% on R/A; Weight 136.08 kg; iw Height 6 ft. 0 in. ; 11:32 BP 128 / 75; Pulse 71; Pulse Ox 96% on R/A; MAP 91 mmHg; Pain 1/10; tm6 13:00 BP 131 / 78; Pulse 72; Resp 17; Pulse Ox 98% ; me1 09:58 Body Mass Index 40.69 (136.08 kg, 182.88 cm) iw 11:32 Pain Scale: Adult tm6 ED Course: 09:47 Patient arrived in ED. ra3 09:48 Bandar Diggs MD is Attending Physician. sp3 09:59 Triage completed. iw 10:03 James Sidhu, RN is Primary Nurse. tm6 10:23 US Abdomen Complete In Process Unspecified. EDMS 10:46 Arm band placed on right wrist. tm6 10:46 Patient has correct armband on for positive identification. Bed in low position. Call tm6 light in reach. Side rails up X 1. Provided Education on: use of call baltazar. Client placed on continuous cardiac and pulse oximetry monitoring. NIBP monitoring applied. Pulse ox on. NIBP on. Door closed. Noise minimized. 11:08 Inserted saline lock: 22 gauge in left upper arm, using aseptic technique. Blood bp collected. Flushed with 10 mL NS. 11:08 Initial lab(s) drawn, by me, sent to lab. First set of blood cultures drawn by me, bp Second set of blood cultures drawn by me. 12:05 No provider procedures requiring assistance completed. me1 12:56 Aletha Sandoval MD is Hospitalizing Provider. sp3 14:47 Patient admitted, IV remains in place. me1 Administered Medications: 11:31 Drug: Piperacillin-Tazobactam IVPB 3.375 grams IVPB once over 60 mins; (mix in NS 100 tm6 mL) Route: IVPB; Infused Over: 60 mins; Site: left upper arm; 12:04 Follow up: Response: No adverse reaction; IV Status: Completed infusion; IV Intake: me1 100ml 12:25 Drug: vancoMYCIN IVPB 1 grams IVPB once over 2 hrs Route: IVPB; Infused Over: 2 hrs; me1 Site: left upper arm; 14:23 Follow up: Response: No adverse reaction; IV Status: Completed infusion; IV Intake: me1 250ml 14:23 Drug: Fluconazole IVPB 400 mg 100 ml IVPB once over 60 mins Volume: 100 ml; Route: me1 IVPB; Infused Over: 60 mins; Site: right upper arm; 14:49 Follow up: IV Status: Infusion continued upon admission me1 Medication: 10:46 VIS not applicable for this client. tm6 Intake: 12:04 IV: 100ml; Total: 100ml. me1 14:23 IV: 250ml; Total: 350ml. me1 Outcome: 12:56 Decision to Hospitalize by Provider. sp3 14:47 Admitted to Med/surg accompanied by tech, via stretcher, room 225, with chart, Report me1 called to faxed, receipt confirmed with Marlene 14:47 Condition: stable 14:47 Instructed on the need for admit, 14:48 Patient left the ED. me1 Signatures: Dispatcher [employer] Laina Benedict RN RN Pedro Luis Angel RN RN bp Bandar Diggs MD MD sp3 Ros Acevedo RN RN me1 James Sidhu RN RN tm6 Maris Smith ra3 Corrections: (The following items were deleted from the chart) 12:50 09:58 Chief complaint: Patient states: just had an appointment with Dr. Aviles, he me1 said he needed to cut out the inflamed part of my incision because it's infected , had cholecystectomy on Jun 29 iw
--- NOTE | 2024-09-23 12:57 | EDPHYS ---
Physician Documentation [facility] Name: Neftali Miles Age: 34 yrs Sex: Male : 1990 Arrival Date: 09/23/2024 Time: 09:44 Bed 15 Private MD: ED Physician Bandar Diggs HPI: 09/23 10:18 This 34 yrs old Male presents to ER via Ambulatory with complaints of Post Sx sp3 psbl infection. 10:18 34-year-old male status post laparoscopic gallbladder surgery presents for umbilical sp3 infection with possible abscess referred by Dr. Aviles for admission. CT scan not available however he suggested ultrasound, IV antibiotics and he will explore surgically tomorrow. Patient states that he had a "bellybutton infection" prior to the surgery and he believes that is what stemmed all of this. Patient currently denies headache, neck pain, chest pain, shortness of breath, vomiting, diarrhea, fever, or any other signs or symptoms on ROS at this time.. Historical: - Allergies: 10:34 Adhesives; tm6 - PMHx: 10:34 fatty liver; pre-diabetic; tm6 - PSHx: 10:34 Cholecystectomy; tm6 - Immunization history:: Flu vaccine is not up to date. - Infectious Disease History:: Denies. - Social history:: Smoking status: Patient denies any tobacco usage or history of. ROS: 10:19 Constitutional: Negative for fever, chills, and weight loss, Eyes: Negative for injury, sp3 pain, redness, and discharge, ENT: Negative for injury, pain, and discharge, Neck: Negative for injury, pain, and swelling, Cardiovascular: Negative for chest pain, palpitations, and edema, Respiratory: Negative for shortness of breath, cough, wheezing, and pleuritic chest pain, Back: Negative for injury and pain, MS/Extremity: Negative for injury and deformity, Neuro: Negative for headache, weakness, numbness, tingling, and seizure, Psych: Negative for depression, anxiety, suicide ideation, homicidal ideation, and hallucinations, Allergy/Immunology: Negative for hives, rash, and allergies, Endocrine: Negative for neck swelling, polydipsia, polyuria, polyphagia, and marked weight changes, Hematologic/Lymphatic: Negative for swollen nodes, abnormal bleeding, and unusual bruising, 10:19 All other systems are negative, Exam: 10:20 Constitutional: This is a well developed, well nourished patient who is awake, alert, sp3 and in no acute distress. Head/Face: Normocephalic, atraumatic. Eyes: Pupils equal round and reactive to light, extra-ocular motions intact. Lids and lashes normal. Conjunctiva and sclera are non-icteric and not injected. Cornea within normal limits. Periorbital areas with no swelling, redness, or edema. Neck: Trachea midline, no thyromegaly or masses palpated, and no cervical lymphadenopathy. Supple, full range of motion without nuchal rigidity, or vertebral point tenderness. No Meningismus. Chest/axilla: Normal chest wall appearance and motion. Nontender with no deformity. No lesions are appreciated. Cardiovascular: Regular rate and rhythm with a normal S1 and S2. No gallops, murmurs, or rubs. Normal PMI, no JVD. No pulse deficits. Respiratory: Lungs have equal breath sounds bilaterally, clear to auscultation and percussion. No rales, rhonchi or wheezes noted. No increased work of breathing, no retractions or nasal flaring. Back: No spinal tenderness. No costovertebral tenderness. Full range of motion. Skin: Warm, dry with normal turgor. Normal color with no rashes, no lesions, and no evidence of cellulitis. MS/ Extremity: Pulses equal, no cyanosis. Neurovascular intact. Full, normal range of motion. Neuro: Awake and alert, GCS 15, oriented to person, place, time, and situation. Cranial nerves II-XII grossly intact. Motor strength 5/5 in all extremities. Sensory grossly intact. Cerebellar exam normal. Normal gait. Psych: Awake, alert, with orientation to person, place and time. Behavior, mood, and affect are within normal limits. 10:20 Abdomen/GI: Tender to palpation periumbilically with surface cellulitis noted. 3 cm ulcer also present., Vital Signs: 09:58 BP 125 / 82; Pulse 89; Resp 18; Temp 97.6; Pulse Ox 95% on R/A; Weight 136.08 kg; iw Height 6 ft. 0 in. ; 11:32 BP 128 / 75; Pulse 71; Pulse Ox 96% on R/A; MAP 91 mmHg; Pain 1/10; tm6 13:00 BP 131 / 78; Pulse 72; Resp 17; Pulse Ox 98% ; me1 09:58 Body Mass Index 40.69 (136.08 kg, 182.88 cm) iw 11:32 Pain Scale: Adult tm6 MDM: 09:49 Medical Screening Exam initiated sp3 10:20 Data reviewed: vital signs, nurses notes, old medical records, lab test result(s), sp3 radiologic studies. ED course: 34-year-old male with postsurgical complication with abdominal wall cellulitis and ulcer. Will start IV antibiotics and admit patient to the hospital with surgical consultation and probable surgery tomorrow per Dr. Aviles.. 09/23 09:50 Order name: Blood Culture Adult (2) sp3 09/23 09:50 Order name: CBC with Diff sp3 09/23 09:50 Order name: CMP; Complete Time: 12:49 sp3 09/23 09:50 Order name: Lactate w/ 2H reflex if indic.; Complete Time: 12:39 sp3 09/23 09:50 Order name: Protime (+inr); Complete Time: 12:39 sp3 09/23 09:50 Order name: Ptt, Activated; Complete Time: 12:39 sp3 09/23 09:50 Order name: Lipase; Complete Time: 12:49 sp3 09/23 13:34 Order name: Manual Differential EDMS 09/23 13:38 Order name: CBC with Automated Diff EDMS 09/23 13:38 Order name: CBC with Automated Diff EDMS 09/23 13:38 Order name: Comprehensive Metabolic Panel EDMS 09/23 13:38 Order name: Comprehensive Metabolic Panel EDMS 09/23 13:38 Order name: Protime (+INR) EDMS 09/23 13:38 Order name: Protime (+INR) EDMS 09/23 13:38 Order name: PTT, Activated Partial Thromb EDMS 09/23 13:38 Order name: PTT, Activated Partial Thromb EDMS 09/23 09:50 Order name: US Abdomen Complete; Complete Time: 11:29 sp3 09/23 13:38 Order name: CONS Physician Consult EDMS 09/23 13:38 Order name: CONS Physician Consult EDMS 09/23 09:50 Order name: IV Saline Lock - Large Bore; Complete Time: 11:11 sp3 09/23 09:50 Order name: Labs collected and sent; Complete Time: 11:11 sp3 09/23 09:50 Order name: Vital Signs; Complete Time: 11:11 sp3 09/23 11:32 Order name: Labs - recollect needed: PLEASE RECOLLECT ALL LABS; BLUE, GREEN, AND PURPLE eb TOP; Complete Time: 12:26 Administered Medications: 11:31 Drug: Piperacillin-Tazobactam IVPB 3.375 grams IVPB once over 60 mins; (mix in NS 100 tm6 mL) Route: IVPB; Infused Over: 60 mins; Site: left upper arm; 12:04 Follow up: Response: No adverse reaction; IV Status: Completed infusion; IV Intake: me1 100ml 12:25 Drug: vancoMYCIN IVPB 1 grams IVPB once over 2 hrs Route: IVPB; Infused Over: 2 hrs; me1 Site: left upper arm; 14:23 Follow up: Response: No adverse reaction; IV Status: Completed infusion; IV Intake: me1 250ml 14:23 Drug: Fluconazole IVPB 400 mg 100 ml IVPB once over 60 mins Volume: 100 ml; Route: me1 IVPB; Infused Over: 60 mins; Site: right upper arm; 14:49 Follow up: IV Status: Infusion continued upon admission me1 Disposition Summary: 09/23/24 12:56 Hospitalization Ordered Notes: Hospitalization Status: Inpatient Admission sp3 Provider: Aletha Sandoval [facility] sp3 Condition: Stable sp3 Problem: new sp3 Symptoms: have worsened sp3 Bed/Room Type: Standard sp3 Room Assignment: [facility](09/23/24 13:47) Diagnosis - Abdominal wall infection, surgical complication sp3 Forms: - Medication Reconciliation Form sp3 - SBAR form sp3 - Leadership Thank You Letter sp3 Signatures: Dispatcher [employer] Nesha Kennedy RN RN ss Lucero Paige Setul, MD MD sp3 Ros Acevedo RN RN pa1 James Sidhu RN RN tm6 Corrections: (The following items were deleted from the chart) 13:47 12:56 sp3 ss
--- NOTE | 2024-09-23 13:25 | P.HP ---
Certification for Inpatient Patient admitted to: Inpatient Patient will require the following post-hospital care: None Practitioner: I am a practitioner with admitting privileges, knowledge of patient current condition, hospital course, and medical plan of care. Services: Services provided to patient in accordance with Admission requirements found in Title 42 Section 412.3 of the Code of Federal Regulations Patient History Date of Service: 09/23/24 Reason for admission: Abdominal wall cellulitis/generalized papular rash with eosinophilia History of Present Illness: Patient is a 34yo gentleman who came to the hospital with nonhealing wound to the umbilical incision after laparoscopic cholecystectomy that was performed in mid July. Patient has been on numerous antibiotics since that time. However, patient has not been able to get his wound healed. Decided come into the ER conditions from his surgeon. In the ER, patient is in the bed with a papular rash from head to toe. Patient with significant erythema around this papular rash. They are blanching significantly. They are not tender to touch. These never appeared until after he was being treated for the recurrent wounds. Patient apparently has been on numerous antibiotics and unsure as to which one is causing the rash. However, at this time patient will need to be admitted to the hospital and started on antihistamine and steroids. Patient with significant eosinophilia which goes along with a drug rash. Continue with surgery consultation as well for wound care. At this time patient will be admitted to the hospital for further evaluation. Allergies No Known Allergies Allergy (Verified 06/29/24 02:29) Home Medications: NK [No Home Meds] 09/23/24 - Past Medical/Surgical History Diabetic: No -: fatty liver disease -: Laparoscopic cholecystectomy - Family History Father Family History: Reviewed- Non-Contributory - Social History Smoking Status: Never smoker Alcohol use: Yes CD- Drugs: No Caffeine use: Yes Review of Systems 10-point ROS is otherwise unremarkable Physical Examination - Vital Signs Temperature: 98 F Blood Pressure: 140/80 Pulse: 90 Respirations: 18 Pulse Ox (%): 95 - Physical Exam General: Alert, In no apparent distress, Oriented x3 HEENT: Atraumatic, PERRLA, Mucous membr. moist/pink, EOMI, Sclerae nonicteric Neck: Supple, 2+ carotid pulse no bruit, No LAD, Without JVD or thyroid abnormality Respiratory: Clear to auscultation bilaterally, Normal air movement Cardiovascular: Regular rate/rhythm, Normal S1 S2 Gastrointestinal: Normal bowel sounds, Soft and benign, Non-distended, No tenderness, Other (Wound above umbilicus) Musculoskeletal: No clubbing, No swelling, No tenderness Integumentary: Rash(es), Other (papular rash diffusely-head to toe) Neurological: Normal gait, Normal speech, Normal strength at 5/5 x4 extr, Normal tone, Normal affect Lymphatics: No axilla or inguinal lymphadenopathy - Studies Laboratory Data (last 24 hrs) 09/23/24 09/23/24 09/23/24 12:20 12:20 12:20 WBC 8.60 Hgb 14.4 Hct 43.0 Plt Count 326 PT 13.1 H INR 1.18 APTT 41.4 H Sodium 139 Potassium 3.8 BUN 21 H Creatinine 0.89 Glucose 110 H Total Bilirubin 0.6 AST 31 ALT 41 Alkaline Phosphatase 72 Lipase 33 Assessment & Plan - Problems (Diagnosis) (1) Cellulitis of abdominal wall Current Visit: Yes Status: Acute (2) Antibiotic-induced allergic rash Current Visit: Yes Status: Acute (3) S/P laparoscopic cholecystectomy Current Visit: Yes Status: Acute (4) Morbid obesity Current Visit: No Status: Acute - Plan Plan: 1. Continue with IV antibiotics; may DC the penicillin and use vancomycin 2. Continue with steroids and antihistamine 3. Monitor rash closely and may benefit from biopsy. 4. Surgery consultation for wound care 5. GI DVT prophylax Discharge Plan: Home Plan to discharge in: Greater than 2 days - Advance Directives Does patient have a Living Will: No Does patient have a Durable POA for Healthcare: No - Code Status/Comfort Care Code Status Assessed: Yes Code Status: Full Code Critical Care: Yes Time Spent Managing PTS Care (In Minutes): 50
[2024-09-23] MEDS ORDERED: ONDANSETRON 4 MG/2 ML VIAL IV PRN (13:33)
[2024-09-23 13:34] LABS: Band Neutrophils 1 % (0-1); Blood Morphology Comment NOT SEEN (NOT SEEN); Differential Total Cells Count 100; Eosinophils 16 % (0-3); Lymphocytes 14 % (15-42); Monocytes 7 % (0-10); Platelet Estimate ADEQ; Segmented Neutrophils 62 % (40-80)
[2024-09-23] MEDS: NA CHLORIDE 0.9% 1,000 ML IV SCH (15:01)
[2024-09-23] MEDS: METHYLPREDNISOLONE 125 MG INJ IV STA (15:04)
[2024-09-23] MEDS: DIPHENHYDRAMINE 50 MG/ML VIAL IV ONE (15:06)
[2024-09-23] MEDS: FLUCONAZOLE 400 MG IVPB 400 MG/200 ML BAG IV ONE (15:08)
[2024-09-23] MEDS: ACETAMINOPHEN 500 MG TAB PO PRN (15:10)
[2024-09-23 15:16] VITALS: BMI 40.6
[2024-09-23] MEDS: METHYLPREDNISOLONE 125 MG INJ IV SCH (17:29)
[2024-09-24 06:24] LABS: Absolute Lymphocytes (CBC) 0.6 K/uL (0.7-4.9); Absolute Monocytes 0.1 K/uL (0.1-1.3); Absolute Neutrophil 9.3 K/uL (1.8-8.0); Basophils % 0.4 % (0-1.3); Hematocrit 42.1 % (39.6-49.0); Hemoglobin 14.1 g/dL (13.6-17.9); Lymphocytes % 6.3 % (15.3-44.8); MCH 30.5 pg (27.0-35.0); MCHC 33.5 g/dL (32.0-36.0); MCV 91.1 fL (80-100); Monocytes % 0.9 % (3.3-12.3); Neutrophils % 92.4 % (41.7-73.7); Platelets 349 thou/uL (152-406); RBC Red Blood Cell Count 4.62 M/uL (4.33-5.43); Red Cell Distribution Width 14.7 % (12.1-15.2)
[2024-09-24 06:28] LABS: PT Prothrombin Time 13.2 SECONDS (9.4-12.5); PTT, Activated Partial Thromb 36.4 SECONDS (24.3-36.9); Protime INR 1.18
[2024-09-24 06:29] LABS: Albumin 2.8 g/dL (3.4-5.0); Albumin/Globulin Ratio 0.6 (1.1-1.8); Anion Gap 9.3 mEq/L (5.0-15.0); Bilirubin Total 0.3 mg/dL (0.2-1.0); Potassium 4.3 mEq/L (3.5-5.1); Protein, Total 7.8 g/dL (6.4-8.2)
[2024-09-24] MEDS: VANCOMYCIN 1.25 GM in NA CHLORIDE 0.9% 250 ML IVPB SCH (09:54)
[2024-09-24] MEDS: PIPER TAZO 3.375 GM in NA CHLORIDE 0.9% 100 ML IV SCH (10:27)
[2024-09-24] MEDS: VANCOMYCIN 2 GM in NA CHLORIDE 0.9% 500 ML IVPB SCH ×2 (11:00→16:15)
[2024-09-24] MEDS: LIDOCAINE HCL/EPINEPHRINE 20 ML MDV ONE (12:47)
[2024-09-24] MEDS ORDERED: propofoL 200 MG/20 ML VIAL IV ONE ×3 (12:58→14:25)
[2024-09-24] MEDS ORDERED: LIDOCAINE 2% MPF 5 ML VIAL ONE (12:58)
[2024-09-24] MEDS ORDERED: MIDAZOLAM HCL 2 MG/2 ML INJ ONE (12:58)
[2024-09-24] MEDS ORDERED: FENTANYL CITR 100 MCG/2 ML ONE (12:58)
[2024-09-24] MEDS ORDERED: ONDANSETRON 4 MG/2 ML VIAL ONE (12:58)
[2024-09-24] MEDS ORDERED: dexAMETHasone 10 MG/ML VIAL ONE (14:20)
[2024-09-24] MEDS ORDERED: GLYCOPYRROLATE 0.2 MG/ML SYR ONE (14:20)
--- NOTE | 2024-09-24 14:47 | P.OP ---
Preoperative diagnosis: Chronic Umbilical Wound Postoperative diagnosis: Chronic Umbilical Wound Primary procedure: Debridement of Chronic Umbilical Wound Anesthesia: GETA + Local Estimated blood loss: <1cc Specimen: Cultures, fungal culture Findings: ~ 4cm round supraumbilical wound Complications: None () Transferred to: Recovery Room Condition: Good
[2024-09-24] MEDS: HYDROMORPHONE HCL 1 MG/ML INJ ONE (15:14)
[2024-09-24] MEDS: DIPHENHYDRAMINE 50 MG/ML VIAL IV PRN (16:21)
--- NOTE | 2024-09-24 16:56 | OP ---
Date of Procedure: 09/24/2024 Surgeon: Patricio Aviles MD, Brief History Of Present Illness: Patient is a 34-year-old male known to me from previous encounter where he had a laparoscopic cholecystectomy approximately 2 months ago. 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 However, he states he forgot to tell me of this preoperatively prior to his laparoscopic cholecystectomy 2 months ago. As such, after the cholecystectomy, his supraumbilical wound continued to improve initially, but then ultimately opened up and began to drain fluid similar to his preoperative history of repeated draina ge from the belly button area with fungal infection known. He came to see me in clinic. Also he did not disclose the history of fungal infections, was treated multiple times with antibiotics as well a s local wound care. However, he had no significant improvement of his wound. He was advised to have surgery at that time for a debridement and culture in the OR, ultimately, however, he denied this be cause he states he could not take that much time from work. He therefore was partially noncompliant with wound care instructions as well as antibiotic treatment plan and overall treatment plan. Ultima lizet, he came to my clinic yesterday and was noted to have significant worsening clinical picture, an d as such, I sent him to the emergency room. He is admitted at this time and we therefore had the ab ove discussion and decided to proceed while he is on antifungal coverage, at this point. Preoperative Diagnosis: Chronic umbilical wound. Postoperative Diagnosis: Chronic umbilical wound. Procedure Performed: Debridement of chronic umbilical wound. Anesthesia: General endotracheal plus local with 1% lidocaine. Estimated Blood Loss: 1 cc. Specimen: Cultures sent for both aerobic, anaerobic speciation, as well as, fungal culture. Findings: 4-cm supraumbilical chronic wound. Complications: None. Disposition: Patient transferred to recovery room in good condition. Procedure In Detail: After informed consent was obtained, patient was brought to the operating room, prepped and draped in the usual sterile fashion after adequate anesthesia was achieved. I made an e lliptical incision circumferentially around his previous wound, taking approximately a rim of quarter inch abnormal tissue circumferentially around the edge of his wound and took the base of the wound o ut using a combination of sharp dissection and electrocautery, ultimately sent this off for culture, both aerobic, anaerobic, and fungal culture. At this point, all tissue was examined. I then made sm all probing incisions into the adipose tissue. No additional fluid or infectious components were miriam reciated, at this point. I could not palpate any other collections in the adipose tissue. However, he does have a significant abdominal girth with obesity, but the adipose tissue appeared pink and via ble and without any significant discoloration and no concern for fasciitis was appreciated, at this p oint, as I dissected through the layers without any evidence of murky fluid or any significant collec tions. At this point, the wound was packed with Vashe soaked gauze and a sterile dressing was placed over top. The patient tolerated the procedure without incident or complication and transferred to [facility] in good condition. All counts were correct at the end of the case. ZOE/FRANKIE Voice ID: [id number] Report ID: [id number]
[2024-09-25 05:44] LABS: Absolute Lymphocytes (CBC) 0.6 K/uL (0.7-4.9); Absolute Monocytes 0.2 K/uL (0.1-1.3); Absolute Neutrophil 15.5 K/uL (1.8-8.0); Basophils % 0.2 % (0-1.3); Hematocrit 37.4 % (39.6-49.0); Hemoglobin 12.3 g/dL (13.6-17.9); Lymphocytes % 3.5 % (15.3-44.8); MCH 30.3 pg (27.0-35.0); Monocytes % 1.4 % (3.3-12.3); Neutrophils % 94.9 % (41.7-73.7); Platelets 308 thou/uL (152-406); RBC Red Blood Cell Count 4.07 M/uL (4.33-5.43); Red Cell Distribution Width 14.8 % (12.1-15.2)
[2024-09-25 05:59] LABS: ALT/SGPT 30 U/L (16-61); Albumin 2.5 g/dL (3.4-5.0); Albumin/Globulin Ratio 0.6 (1.1-1.8); Alkaline Phosphatase 59 U/L (45-117); Anion Gap 7.4 mEq/L (5.0-15.0); BUN Blood Urea Nitrogen 24 mg/dL (7-18); Bicarbonate 25 mEq/L (21-32); Bilirubin Total 0.2 mg/dL (0.2-1.0); Globulin 4.2 g/dL (2.3-3.5); Glomerular Filtration Rate 118 ml/min (=/>90); Glucose Level 296 mg/dL (74-106); Magnesium 2.2 mg/dL (1.6-2.4); Phosphorus 3.1 mg/dL (2.5-4.9); Potassium 4.4 mEq/L (3.5-5.1); Protein, Total 6.7 g/dL (6.4-8.2); Sodium Level 141 mEq/L (136-145)
[2024-09-25 06:17] LABS: AST/SGOT < 10 U/L (15-37)
[2024-09-25 09:39] LABS: Differential Total Cells Count 100; Lymphocytes 5 % (15-42); Monocytes 2 % (0-10); Segmented Neutrophils 93 % (40-80)
[2024-09-25 09:40] LABS: Blood Morphology Comment NOT SEEN (NOT SEEN); Platelet Estimate ADEQ
[2024-09-25] MEDS: FLUCONAZOLE 400 MG IVPB 400 MG/200 ML BAG IV SCH (10:20)
--- NOTE | 2024-09-25 18:45 | P.PN ---
Subjective Date of Service: 09/25/24 Chief Complaint: Abdominal wall cellulitis/generalized papular rash with eosinophilia Admitted with abdominal wall cellulitis, status post I&D by surgery, pain controlled as needed analgesia Rash improving, on solumedrol Review of Systems 10-point ROS is otherwise unremarkable Physical Examination - Vital Signs Temperature: 98.0 F Blood Pressure: 140/62 Pulse: 60 Respirations: 16 Pulse Ox (%): 92 - Physical Exam General: Alert, In no apparent distress, Oriented x3, Obese HEENT: Atraumatic, Normocephalic Neck: 2+ carotid pulse no bruit, JVD not distended Respiratory: Clear to auscultation bilaterally, Normal air movement Cardiovascular: Normal pulses, Regular rate/rhythm, Normal S1 S2 Capillary refill: <2 Seconds Gastrointestinal: Normal bowel sounds, Soft and benign Musculoskeletal: No swelling, No contractures Integumentary: Other (Abdominal wall dressing, clean dry and intact) Neurological: Normal speech, Normal strength at 5/5 x4 extr, Cranial nerves 3-12 intact Assessment And Plan - Plan Assessment & Plan - Problems (Diagnosis) (1) Cellulitis of abdominal wall Current Visit: Yes Status: Acute (2) Antibiotic-induced allergic rash Current Visit: Yes Status: Acute (3) S/P laparoscopic cholecystectomy Current Visit: Yes Status: Acute (4) Morbid obesity Current Visit: No Status: Acute - Plan Plan: 1. Continue with IV antibiotics; may DC the penicillin and use vancomycin 2. Continue with steroids and antihistamine 3. Monitor rash closely and may benefit from biopsy. 4. Surgery consultation for wound care 5. GI DVT prophylax 6. Wound cultures Enterococcus faecalis-on IV vancomycin, fluconazole Discharge Plan: Home Plan to discharge in: Greater than 2 days - Advance Directives Does patient have a Living Will: No Does patient have a Durable POA for Healthcare: No - Code Status/Comfort Care Code Status Assessed: Yes Code Status: Full Code Critical Care: Yes Time Spent Managing PTS Care (In Minutes): 35 Discharge Plan: Home - Code Status/Comfort Care Code Status: Full Code Critical Care: No
[2024-09-25] MEDS ORDERED: CETIRIZINE HCL 5 MG TABLET PO PRN (19:27)
[2024-09-25] MEDS: MONTELUKAST 10 MG TAB PO SCH (21:14)
[2024-09-25] MEDS: METHYLPREDNISOLONE 40 MG INJ IV SCH (21:15)
[2024-09-26 05:55] LABS: Absolute Lymphocytes (CBC) 0.7 K/uL (0.7-4.9); Absolute Monocytes 0.3 K/uL (0.1-1.3); Absolute Neutrophil 10.7 K/uL (1.8-8.0); Basophils % 0.3 % (0-1.3); Eosinophils % 0.4 % (0-4.4); Hematocrit 35.9 % (39.6-49.0); Hemoglobin 11.8 g/dL (13.6-17.9); Lymphocytes % 6.3 % (15.3-44.8); MCH 30.4 pg (27.0-35.0); MCV 92.1 fL (80-100); MPV 9.6 fL (7.6-11.3); Monocytes % 2.6 % (3.3-12.3); Neutrophils % 90.4 % (41.7-73.7); Nucleated Red Blood Cells % 0.1 % (0-0); Platelets 342 thou/uL (152-406); RBC Red Blood Cell Count 3.89 M/uL (4.33-5.43); Red Cell Distribution Width 14.6 % (12.1-15.2)
[2024-09-26 06:26] LABS: ALT/SGPT 27 U/L (16-61); Albumin 2.5 g/dL (3.4-5.0); Albumin/Globulin Ratio 0.7 (1.1-1.8); Alkaline Phosphatase 56 U/L (45-117); Anion Gap 8.3 mEq/L (5.0-15.0); BUN Blood Urea Nitrogen 23 mg/dL (7-18); Bicarbonate 24 mEq/L (21-32); Bilirubin Total 0.3 mg/dL (0.2-1.0); Globulin 3.7 g/dL (2.3-3.5); Glomerular Filtration Rate 123 ml/min (=/>90); Glucose Level 313 mg/dL (74-106); Potassium 4.3 mEq/L (3.5-5.1); Protein, Total 6.2 g/dL (6.4-8.2); Sodium Level 141 mEq/L (136-145)
[2024-09-26 06:32] LABS: AST/SGOT < 10 U/L (15-37); C-Reactive Protein < 2.90 mg/L (<3.00)
[2024-09-26] MEDS ORDERED: HYDROCODONE/APAP 5/325 MG TAB PO PRN (11:47)
[2024-09-26] MEDS: LIDOCAINE JELLY 2%- 5 ML TUBE TOP ONE (11:59)
[2024-09-26] MEDS: MORPHINE 2 MG/ML SYR IV PRN (12:47)
--- NOTE | 2024-09-27 07:36 | P.DS ---
Admission Date: 09/23/24 Discharge Date: 09/26/24 Disposition: ROUTINE DISCHARGE Discharge Condition: GOOD Reason for Admission: Abdominal wall cellulitis/generalized papular rash with eosinophilia Brief History of Present Illness: Patient is a 34yo gentleman who came to the hospital with nonhealing wound to the umbilical incision after laparoscopic cholecystectomy that was performed in mid July. Patient has been on numerous antibiotics since that time. However, patient has not been able to get his wound healed. Decided come into the ER conditions from his surgeon. In the ER, patient is in the bed with a papular rash from head to toe. Patient with significant erythema around this papular rash. They are blanching significantly. They are not tender to touch. These never appeared until after he was being treated for the recurrent wounds. Patient apparently has been on numerous antibiotics and unsure as to which one is causing the rash. However, at this time patient will need to be admitted to the hospital and started on antihistamine and steroids. Patient with significant eosinophilia which goes along with a drug rash. Continue with surgery consultation as well for wound care. At this time patient will be admitted to the hospital for further evaluation. - Physical Exam General: Alert, In no apparent distress, Oriented x3 HEENT: Atraumatic, PERRLA, Mucous membr. moist/pink, EOMI, Sclerae nonicteric Neck: Supple, 2+ carotid pulse no bruit, No LAD, Without JVD or thyroid abnormality Respiratory: Clear to auscultation bilaterally, Normal air movement Cardiovascular: Regular rate/rhythm, Normal S1 S2 Gastrointestinal: Normal bowel sounds, Soft and benign, Non-distended, No tenderness, Other (Wound above umbilicus) Musculoskeletal: No clubbing, No swelling, No tenderness Integumentary: Rash(es), Other (papular rash diffusely-head to toe) Neurological: Normal gait, Normal speech, Normal strength at 5/5 x4 extr, Normal tone, Normal affect Hospital Course: Patient is a 34yo gentleman who came to the hospital with nonhealing wound to the umbilical incision after laparoscopic cholecystectomy that was performed in mid July. Patient has been on numerous antibiotics since that time. However, patient has not been able to get his wound healed. Decided come into the ER conditions from his surgeon. In the ER, patient is in the bed with a papular rash from head to toe. Patient with significant erythema around this papular rash. They are blanching significantly. They are not tender to touch. These never appeared until after he was being treated for the recurrent wounds. Patient apparently has been on numerous antibiotics and unsure as to which one is causing the rash. He was seen by surgery, status post I&D, with cultures, treated with IV antibiotics, treated with steroids for drug-induced rash., Symptoms improved. Tolerating diet, stable to discharge home follow-up with surgery after discharge Discharge medication Augmentin 1 p.o. twice daily for 10 days Bactroban 3 times daily covered with dry dressing Fluconazole 200 mg daily for 14 days Hydrocodone Deltasone 20 mg p.o. twice daily for 10 days Singulair, Zyrtec Wound cultures positive for Enterococcus faecalis, staph schleifri 09/24/24 I&D Chronic umbilical wound. Dr Aviles Assessment Abdominal wall cellulitis-status post I&D by Dr. Aviles-will discharge home on antibiotic (inpatient treated with IV fluconazole, vancomycin) Antibiotic induced allergic rash-treated with steroids while inpatient, improved Status post laparoscopic/cholecystectomy (06/29/24) Chronic nonhealing umbilical wound Morbid obesity Continue home medicines as previously prescribed GOAL: Clear understanding of disease process INSTRUCTIONS: Physician Discharge Instructions: -Follow-up with surgery after discharge -Follow-up with PCP in 1 to 2 weeks -Please call Dr. Sandoval at [phone] if any questions regarding hospital stay -Please call nursing station at [phone] if any nursing or medication questions -Return to the emergency room if symptoms worsen Diet: ADA, low sodium Activity: Fall precautions Vital Signs/Physical Exam: Temp Pulse Resp BP Pulse Ox 97.7 F 52 14 149/73 H 93 09/26/24 16:00 09/26/24 16:00 09/26/24 16:00 09/26/24 16:00 09/26/24 16:00 Laboratory Data at Discharge: WBC 11.80 thou/uL (4.3-10.9) H 09/26/24 05:35 Hgb 11.8 g/dL (13.6-17.9) L 09/26/24 05:35 Hct 35.9 % (39.6-49.0) L 09/26/24 05:35 Plt Count 342 thou/uL (152-406) 09/26/24 05:35 PT 13.2 SECONDS (9.4-12.5) H 09/24/24 05:43 INR 1.18 09/24/24 05:43 APTT 36.4 SECONDS (24.3-36.9) 09/24/24 05:43 Sodium 141 mEq/L (136-145) 09/26/24 05:35 Potassium 4.3 mEq/L (3.5-5.1) 09/26/24 05:35 BUN 23 mg/dL (7-18) H 09/26/24 05:35 Creatinine 0.74 mg/dL (0.70-1.30) 09/26/24 05:35 Glucose 313 mg/dL (74-106) H 09/26/24 05:35 Phosphorus 3.1 mg/dL (2.5-4.9) 09/25/24 05:12 Magnesium 2.2 mg/dL (1.6-2.4) 09/25/24 05:12 Total Bilirubin 0.3 mg/dL (0.2-1.0) 09/26/24 05:35 AST < 10 U/L (15-37) L 09/26/24 05:35 ALT 27 U/L (16-61) 09/26/24 05:35 Alkaline Phosphatase 56 U/L (45-117) 09/26/24 05:35 Lipase 33 U/L (13-75) 09/23/24 12:20 Home Medications: Amox/Clavulanate [Augmentin 875-125 Tab] 875 mg PO BID #20 tab 09/26/24 Cetirizine HCl [Zyrtec] 10 mg PO DAILY #30 tab 09/26/24 Fluconazole [Diflucan] 200 mg PO DAILY #14 tab 09/26/24 Hydrocodone 5/APAP 325 [[place] 5/325*] 1 tab PO Q6H PRN #30 tab 09/26/24 Montelukast [Singulair*] 10 mg PO BEDTIME #30 tab 09/26/24 Mupirocin Oint [Bactroban 2% Ointment] 30 gm TP TID #1 tube 09/26/24 predniSONE [Deltasone] 20 mg PO BID #20 tab 09/26/24 New Medications: Amox/Clavulanate [Augmentin 875-125 Tab] 875 mg PO BID #20 tab Mupirocin Oint [Bactroban 2% Ointment] 30 gm TP TID #1 tube Fluconazole [Diflucan] 200 mg PO DAILY #14 tab Hydrocodone 5/APAP 325 [[place] 5/325*] 1 tab PO Q6H PRN #30 tab PRN Reason: Pain Scale 5-7 (Moderate) predniSONE [Deltasone] 20 mg PO BID #20 tab Montelukast [Singulair*] 10 mg PO BEDTIME #30 tab Cetirizine HCl [Zyrtec] 10 mg PO DAILY #30 tab Diet: Low sodium Activity: Fall precautions Followup: Patricio Aviles MD [ACTIVE - CAN ADMIT] - Edwin Perales DO [Primary Care Provider] - Time spent managing pt's care (in minutes): 45
[2024-09-29 13:34] LABS: Celiac Interpretation REPORT; Immunoglobulin A 287 mg/dL (47-310); Tissue Transglutaminase IgA Ab <1.0 U/mL (<15.0)
[2024-09-29 15:10] VITALS: BP 149/73; TEMP 97.7
[2024-09-29 15:16] VITALS: O2SAT 92
[2024-09-29 18:39] LABS: Complement C3 165 mg/dL (82-185)
[2024-09-30 18:50] LABS: Complement (CH50), Total 55 U/mL (31-60)
[2024-10-02 23:20] LABS: Immunoglobulin E 810 kU/L (<=114)
== END 2024-09-26 18:46 | disposition home or self-care (01) | DRG 857 ==
LOC: ER 09:44 → ERHOLD 13:33 → 2ND 14:11
PROVIDERS: ADMIT Hospitalist; ATTEND Hospitalist
PROC: 5A09457 Assistance with Respiratory Ventilation, 24-96 Consecutive Hours, Continuous Positive Airway Pressure (ICD-10-PCS; principal; 2024-09-23)
PROC: 0JD80ZZ Extraction of Abdomen Subcutaneous Tissue and Fascia, Open Approach (ICD-10-PCS; 2024-09-24)
DX: T81.40XA Infection following a procedure, unspecified, initial encounter (principal); L03.311 Cellulitis of abdominal wall; Z68.41 Body mass index [BMI] 40.0-44.9, adult; E66.01 Morbid (severe) obesity due to excess calories; K76.0 Fatty (change of) liver, not elsewhere classified; D72.10 Eosinophilia, unspecified; L27.0 Generalized skin eruption due to drugs and medicaments taken internally; B95.2 Enterococcus as the cause of diseases classified elsewhere; B95.7 Other staphylococcus as the cause of diseases classified elsewhere; T36.95XA Adverse effect of unspecified systemic antibiotic, initial encounter; Z91.199 Patient's noncompliance with other medical treatment and regimen due to unspecified reason; Z79.899 Other long term (current) drug therapy; Z79.52 Long term (current) use of systemic steroids; Z90.49 Acquired absence of other specified parts of digestive tract; Y83.8 Other surgical procedures as the cause of abnormal reaction of the patient, or of later complication, without mention of misadventure at the time of the procedure
CPT/HCPCS: 36415; 76700; 80053; 80202; 82784; 82785; 83605; 83690; 83735; 84100; 84145; 85025; 85610; 85730; 86140; 86160; 86162; 86364; 87040; 87070; 87075; 87077; 87186; 87205; 88304; 88312; 99285; J1100; J1171; J1200; J1450; J2003; J2250; J2270; J2405; J2543; J2704; J2919; J3010; J7030; J7040; J7050

== ENCOUNTER 2024-09-30 12:29 | Inpatient (IN) | payer OTHER ==
--- OUTSIDE RECORDS SUMMARY | 2024-09-30 12:33 | XMS REPORT | Continuity of Care Document ---
Author Name Unknown Address [address] [facility] [address] [place] [address] [facility] Address 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 Kaitlynn Beth - Externa l Vital Signs Vital Name Observation Time Observation Value Comments S ource Systolic blood pressure 2024-07-14 16:15:00 106 mm[Hg] Kaitlynn hO ld - External Diastolic blood pressure 2024-07-14 16:15:00 81 mm[Hg] Kaitlynn Millso ld - External Body temperature 2024-07-14 16:15:00 36.83 Cielo Kaitlynn Beth - External Body height 2024-07-14 16:15:00 182.9 cm Marianne Beth - External Body weight 2024-07-14 16:15:00 145.605 kg Marianne Beth - External BMI 2024-07-14 16:15:00 43.54 kg/m2 Marianne ey ybold - External Encounters Start Date/Time End Date/Time Encounter Type Admission Type Attending [facility] Care Department Encounter ID Source 2024-10-12 09:00:00 2024-10-12 09:00:00 Outpatient FIORELLA MCFARLAND [id number] Kaitlynn will 2024-10-05 11:15:00 2024-10-05 11:15:00 Outpatient FIORELLA MCFARLAND [id number] Kaitlynn will 2024-09-04 10:00:00 2024-09-04 10:00:00 Outpatient YASMIN FLORES [id number] Kaitlynn will 2024-09-04 00:00:00 2024-09-04 00:00:00 Outpatient MD KAITLYNN ROJAS [id number] Kaitlynn will 2024-07-30 00:00:00 2024-07-30 00:00:00 Outpatient FIORELLA MCFARLAND [id number] Kaitlynn Beth 2024-07-15 00:00:00 2024-07-15 00:00:00 Outpatient FIORELLA MCFARLAND [id number] Kaitlynn will 2024-07-14 11:30:00 2024-07-14 11:30:00 Outpatient FIORELLA MCFARLAND [id number] Kaitlynn Beth 2023-05-09 09:00:00 2023-05-09 10:08:00 Emergency EM Patrice Ramos HCANW ANTONIO [id number] 96 [facility] 2023-04-02 15:41:00 2023-04-03 19:35:00 Inpatient EM Cecilio Stoner HCANW MED [id number] 46 [facility] Results Test Description Test Time Test Comments Results Result Co mments Source SED [id number] 18:57:00* Test Item Value Reference Range Interpretation Comme nts SED RATE (test code = SEDW) 71 mm/hr 0-15 H - CT ABD PELVIS [id number] 16:04:00 [facility] 1990 Sex: MPatient Name: WILI MARTINS Unit No: [id number] EXAMS: CPT: [id number] CT ABD PELVIS W/CONT 26884 History: Scrotal eval CT SCAN OF THE [...] by: Flako Carter MD Name: WILI MARTINS [facility] Phys: JEBMICHAEL Tona SalinasJuanyoshi ROUSSEAU [address] [facility] 1990 Age: 32 Sex: [place] [address] Loc: N.ERST 5 Exam Date: 04/02/2023 Status: ADM IN PH: FAX: PAGE 1 Signed Report (CONTINUED) Patient Name: WILI MARTINS Unit No: [id number] EXAMS: CPT: [id number] CT ABD PELVIS W/CONT 53705 (Continued) CC: Juan Salinas Technologist: QUINN Morrow CTDI: 15.47 DLP: 1089.06Trscr Dt/Tm: 04/02/2023 (1604) by:[email or web address] Orig Print D/T: S: 04/02/2023 (1608) BATCH NO: N/A Name: WILI MARTINS [facility] Phys: LOR HernándezguinJuanyoshi ROUSSEAU [address] [facility] : 1990 Age: 32 Sex: [place] [address] Loc: N.ERST 5 Exam Date:04/02/2023 Status: ADM IN : FAX: PAGE 2 Signed Report- SCROTUM AND [id number] 13:30:00 [facility] : 1990 Sex: MPatient Name: WILI MARTINS Unit No: [id number] EXAMS: CPT: [id number] US SCROTUM AND CNTS 81523 History: Scrotal pain. Scrotal ultrasonography was performed. [...] (1333) BATCH NO: N/A Name: WILI MARTINS [facility] Phys: Juan Pretty APRN [address] : 1990 Age: 32 Sex: M [place], [place] [address] Loc: N.ERS Exam Date: 04/02/2023 Status: REG ER PH: FAX: PAGE 1 Signed ReportBASI METABOLIC [id number] 12:44:00* Test Item Value Reference Range Interpretation [...] interpret this result as normal/abnormal. CBC W/AUTO [id number] 12:20:00* Test Item Value Reference Range Interpretation [...] 0.0-0.1 N UA RFLX MICR CULT IF [id number] 11:59:00* Test Item Value Reference Range Interpretation [...] (test code = URO) NEGATIVE See_Comment [Automated [employer] ge] The system which generated this result [...]
[2024-09-30] MEDS ORDERED: NA CHLORIDE 0.9% 1,000 ML ONE (12:47)
[2024-09-30] MEDS ORDERED: Meropenem 1000 MG/VIAL IV ONE (13:10)
[2024-09-30] MEDS ORDERED: NA CHLORIDE 0.9% 100 ML ONE (13:10)
[2024-09-30] MEDS ORDERED: FAMOTIDINE 20 MG/2 ML VIAL IV ONE (13:10)
[2024-09-30 13:26] LABS: Absolute Eosinophils 0.1 K/uL (0-0.5); Absolute Lymphocytes (CBC) 1.3 K/uL (0.7-4.9); Absolute Monocytes 0.6 K/uL (0.1-1.3); Absolute Neutrophil 6.8 K/uL (1.8-8.0); Basophils % 0.4 % (0-1.3); Eosinophils % 0.9 % (0-4.4); Hematocrit 49.4 % (39.6-49.0); Hemoglobin 16.9 g/dL (13.6-17.9); Lymphocytes % 14.8 % (15.3-44.8); MCH 30.7 pg (27.0-35.0); MCHC 34.3 g/dL (32.0-36.0); MCV 89.6 fL (80-100); MPV 8.8 fL (7.6-11.3); Monocytes % 6.9 % (3.3-12.3); Nucleated Red Blood Cells % 0.1 % (0-0); Platelets 332 thou/uL (152-406); RBC Red Blood Cell Count 5.51 M/uL (4.33-5.43); Red Cell Distribution Width 14.8 % (12.1-15.2)
[2024-09-30 13:33] LABS: PT Prothrombin Time 13.4 SECONDS (9.4-12.5); PTT, Activated Partial Thromb 35.4 SECONDS (24.3-36.9); Protime INR 1.28
[2024-09-30 13:38] LABS: SARS-CoV-2 Antigen CONTROL BLUE LINE VIS/BG OK; SARS-CoV-2 Antigen Rapid Res Negative (Negative)
[2024-09-30 13:42] LABS: Albumin/Globulin Ratio 0.5 (1.1-1.8); Anion Gap 8.8 mEq/L (5.0-15.0); Bilirubin Total 0.6 mg/dL (0.2-1.0); Globulin 5.5 g/dL (2.3-3.5); Potassium 3.8 mEq/L (3.5-5.1); Protein, Total 8.5 g/dL (6.4-8.2)
[2024-09-30] MEDS ORDERED: OSELTAMIVIR 75 MG CAP PO ONE (14:01)
[2024-09-30] MEDS ORDERED: NA CHLORIDE 0.9% 250 ML ONE (14:01)
[2024-09-30] MEDS ORDERED: AZITHROMYCIN 500 MG INJ IVPB ONE (14:01)
[2024-09-30] MEDS ORDERED: ACETAMINOPHEN 500 MG TAB ONE (14:01)
[2024-09-30] MEDS ORDERED: HYDROCORTISONE SUC 100 MG INJ ONE (14:02)
--- NOTE | 2024-09-30 14:13 | ER ---
Nurse's Notes [facility] Name: Neftali Miles Age: 34 yrs Sex: Male : 1990 Arrival Date: 09/30/2024 Time: 12:29 Bed 6 Private MD: Diagnosis: Fever, unspecified;Dehydration;Influenza due to identified novel influenza A virus with other respiratory manifestations;Obesity, unspecified;Pneumonia due to other specified bacteria-BILATERAL MULTIFOCAL Presentation: 09/30 12:34 Chief complaint: Spouse and/or significant other states: "he had a lap miroslava back in aa5 June and it turned it into an umbilical ulcer that was debrided last but now he's had a cough and fever since Saturday". 12:34 Coronavirus screen: cough unrelated to allergies. Ebola Screen: Patient denies travel aa5 to an Ebola-affected area in the 21 days before illness onset. Initial Sepsis Screen: Does the patient meet any 2 criteria? HR > 90 bpm. Does the patient have a suspected source of infection?. Risk Assessment: Do you want to hurt yourself or someone else? Patient reports no desire to harm self or others. Onset of symptoms was September 2024. 12:34 Method Of Arrival: Wheelchair aa5 12:34 Acuity: DEVAN 2 aa5 Triage Assessment: 12:34 General: Appears uncomfortable, ill, Behavior is calm, cooperative. Respiratory: Airway aa5 is patent Respiratory effort is even, unlabored, Respiratory pattern is regular, symmetrical. 12:34 Neuro: Level of Consciousness is awake, alert, obeys commands, Oriented to person, aa5 place, time, situation. 14:51 Respiratory: the patient has mild shortness of breath. ph Historical: - Allergies: 12:41 Adhesives; aa5 - PMHx: 12:41 fatty liver; pre-diabetic; Bradycardia (Unknown); Obstructive Sleep Apnea (Unknown); aa5 Klinefelter Syndrome (Unknown); - PSHx: 12:41 Cholecystectomy; aa5 - Immunization history:: Adult Immunizations unknown. - Infectious Disease History:: Denies. - Social history:: Smoking status: Patient denies any tobacco usage or history of. Screenin:23 [facility] ED Fall Risk Assessment (Adult) History of falling in the last 3 months, ph including since admission No falls in past 3 months (0 pts) Confusion or Disorientation No (0 pts) Intoxicated or Sedated No (0 pts) Impaired Gait No (0 pts) Mobility Assist Device Used No (0 pt) Altered Elimination No (0 pt) Score/Fall Risk Level 0 - 2 = Low Risk Oriented to surroundings, Maintained a safe environment, Hourly rounding (assess needs \\T\\ fall precautionary measures) done. Abuse screen: Denies threats or abuse. Denies injuries from another. Nutritional screening: No deficits noted. Tuberculosis screening: No symptoms or risk factors identified. Assessment: 13:45 General: Appears in no apparent distress. uncomfortable, Behavior is cooperative, ph appropriate for age. Pain: Complains of pain in abdomen. Neuro: Level of Consciousness is awake, alert, obeys commands, Oriented to person, place, time, situation. Cardiovascular: Capillary refill < 3 seconds in bilateral fingers Patient's skin is warm and dry. Respiratory: Reports cough that is productive, Airway is patent Respiratory effort is even, unlabored, Respiratory pattern is regular, symmetrical. GI: Reports nausea, vomiting. Derm: Skin is pink, warm \\T\\ dry. Musculoskeletal: Circulation, motion, and sensation intact. 16:23 Cardiovascular: Rhythm is sinus tachycardia. ph Vital Signs: 12:34 BP 118 / 72; Pulse 123; Resp 20 S; Temp 99.1(O); Pulse Ox 99% on R/A; Weight 136.08 kg aa5 (R); Height 6 ft. 0 in. (R); 13:22 BP 95 / 72; Pulse 112; Resp 18; Pulse Ox 100% on R/A; ph 15:58 BP 109 / 63; Pulse 101; Resp 24; Pulse Ox 97% on 2 lpm NC; jb4 16:19 BP 109 / 63; Pulse 110; Resp 20; Temp 100; Pulse Ox 95% on 2 lpm NC; ph 12:34 Body Mass Index 40.69 (136.08 kg, 182.88 cm) aa5 ED Course: 12:32 Patient arrived in ED. al6 12:33 Cam Arellano MD is Attending Physician. gonzalo 12:34 Arm band placed on Patient placed in an exam room, on a stretcher. aa5 12:37 Lina Espinosa RN is Primary Nurse. ph 12:45 Triage completed. aa5 12:51 Chest Pa And Lat (2 Views) XRAY In Process Unspecified. EDMS 13:15 Inserted saline lock: 20 gauge in left antecubital area, using aseptic technique. aa5 13:23 Patient has correct armband on for positive identification. Bed in low position. Call ph light in reach. Side rails up X 1. Client placed on continuous cardiac and pulse oximetry monitoring. NIBP monitoring applied. potline monitor on. 14:12 Morro Thurston MD is Hospitalizing Provider. gonzalo 16:22 No provider procedures requiring assistance completed. Patient admitted, IV remains in ph place. Administered Medications: 12:56 Not Given (Duplicate Order): ns 0.9% 1000 ml IV at 1 bolus Per protocol; to be given as gonzalo a bolus over 60 minutes 13:16 Drug: NS 0.9% IV (30 ml/kg) 30 ml/kg IV at bolus once; Sepsis Protocol; to be given as aa5 a bolus over 90 minutes Route: IV; Rate: bolus; Site: left antecubital; 14:30 Follow up: Response: No adverse reaction; IV Status: Completed infusion; IV Intake: ph 1000ml 13:16 Drug: Famotidine IVP 20 mg IVP once; dilute with 10 mL 0.9% NaCl; give over 2 minutes aa5 Route: IVP; Site: left antecubital; 16:22 Follow up: Response: No adverse reaction ph 13:45 Drug: Meropenem IV 1 grams IV at per protocol once; (mix in NS 100 mL) Route: IV; Rate: ph per protocol; Site: left antecubital; 14:15 Follow up: Response: No adverse reaction; IV Status: Completed infusion ph 14:16 Drug: Zithromax IVPB 500 mg IVPB once over 1 hrs; mix in 250 mL NS Route: IVPB; Infused ph Over: 1 hrs; Site: left antecubital; 15:20 Follow up: Response: No adverse reaction; IV Status: Completed infusion; IV Intake: ph 250ml 14:16 Drug: Oseltamivir PO 75 mg PO once Route: PO; ph 16:21 Follow up: Response: No adverse reaction ph 14:16 Drug: Acetaminophen PO 1000 mg PO once Route: PO; ph 16:21 Follow up: Response: No adverse reaction ph 14:16 Drug: Solu-CORTEF IVP 100 mg IVP once Route: IVP; Site: left antecubital; ph 16:21 Follow up: Response: No adverse reaction ph 14:49 Drug: Ondansetron IVP 8 mg IVP once; over 2 minutes Route: IVP; Site: left antecubital; ph 16:21 Follow up: Response: No adverse reaction ph 16:59 Drug: levofloxacin IVPB 750 mg 150 ml IVPB once over 90 mins Volume: 150 ml; Route: ph IVPB; Infused Over: 90 mins; Site: left antecubital; 17:00 Follow up: Response: No adverse reaction; IV Status: Infusion continued upon admission ph 17:38 Not Given (Patient Refused): [id number] mg PO once ph Medication: 13:23 VIS not applicable for this client. ph Intake: 14:30 IV: 1000ml; Total: 1000ml. ph 15:20 IV: 250ml; Total: 1250ml. ph Outcome: 14:13 Decision to Hospitalize by Provider. gonzalo 17:38 Patient left the ED. ph 17:38 Admitted to Med/surg family with patient, via stretcher, with oxygen, ph 17:38 Condition: stable 17:38 Instructed on the need for admit, Signatures: Dispatcher [employer] EDCam Mahan MD MD cha Calderon, Audri RN RN aa5 Lina Espinosa RN RN Cirilo Tong RN RN jb4 Kimberly [email or web address] Corrections: (The following items were deleted from the chart) 12:46 12:34 Acuity: DEVAN 3 aa5 aa5 13:58 13:45 Meropenem IV 1 grams IV at per protocol in right antecubital ph ph
--- NOTE | 2024-09-30 14:13 | EDPHYS ---
Physician Documentation [facility] Name: Neftali Miles Age: 34 yrs Sex: Male : 1990 Arrival Date: 09/30/2024 Time: 12:29 Bed 6 Private MD: ED Physician Cam Arellano HPI: 09/30 13:54 This 34 yrs old Male presents to ER via Wheelchair with complaints of Fever, gonzalo Productive Cough, Wound Check. 13:54 The patient reports fever, that was measured at 100 degrees Fahrenheit. Onset: The gonzalo symptoms/episode began/occurred 3 day(s) ago. Modifying factors: there are no obvious modifying factors. Severity of symptoms: At their worst the symptoms were moderate in the emergency department the symptoms are unchanged. The patient has experienced similar episodes in the past, several times. Historical: - Allergies: 12:41 Adhesives; aa5 - PMHx: 12:41 fatty liver; pre-diabetic; Bradycardia (Unknown); Obstructive Sleep Apnea (Unknown); aa5 Klinefelter Syndrome (Unknown); - PSHx: 12:41 Cholecystectomy; aa5 - Immunization history:: Adult Immunizations unknown. - Infectious Disease History:: Denies. - Social history:: Smoking status: Patient denies any tobacco usage or history of. ROS: 13:56 Eyes: Negative for injury, pain, redness, and discharge, ENT: Negative for injury, gonzalo pain, and discharge, Neck: Negative for injury, pain, and swelling, Respiratory: Negative for shortness of breath, cough, wheezing, and pleuritic chest pain, Abdomen/GI: Negative for abdominal pain, nausea, vomiting, diarrhea, and constipation, Back: Negative for injury and pain, : Negative for injury, bleeding, discharge, and swelling, MS/Extremity: Negative for injury and deformity, Skin: Negative for injury, rash, and discoloration, Psych: Negative for depression, anxiety, suicide ideation, homicidal ideation, and hallucinations, Allergy/Immunology: Negative for hives, rash, and allergies, Endocrine: Negative for neck swelling, polydipsia, polyuria, polyphagia, and marked weight changes, Hematologic/Lymphatic: Negative for swollen nodes, abnormal bleeding, and unusual bruising, 13:56 Constitutional: Positive for body aches, chills, fatigue, fever, malaise, poor PO intake, 13:56 Cardiovascular: Positive for palpitations, 13:56 Respiratory: Positive for cough, shortness of breath, wheezing, expiratory, 13:56 Abdomen/GI: Positive for abdominal pain, of the umbilical area, RECENT WOUND DEBRIDED BY DR COPELAND, 13:56 Neuro: Positive for dizziness, weakness, Exam: 13:56 Head/Face: Normocephalic, atraumatic. Eyes: Pupils equal round and reactive to light, gonzalo extra-ocular motions intact. Lids and lashes normal. Conjunctiva and sclera are non-icteric and not injected. Cornea within normal limits. Periorbital areas with no swelling, redness, or edema. ENT: Nares patent. No nasal discharge, no septal abnormalities noted. Tympanic membranes are normal and external auditory canals are clear. Oropharynx with no redness, swelling, or masses, exudates, or evidence of obstruction, uvula midline. Mucous membranes moist. Neck: Trachea midline, no thyromegaly or masses palpated, and no cervical lymphadenopathy. Supple, full range of motion without nuchal rigidity, or vertebral point tenderness. No Meningismus. Chest/axilla: Normal chest wall appearance and motion. Nontender with no deformity. No lesions are appreciated. Back: No spinal tenderness. No costovertebral tenderness. Full range of motion. Male : Normal genitalia with no discharge or lesions. Skin: Warm, dry with normal turgor. Normal color with no rashes, no lesions, and no evidence of cellulitis. MS/ Extremity: Pulses equal, no cyanosis. Neurovascular intact. Full, normal range of motion., bilateral aka Psych: Awake, alert, with orientation to person, place and time. Behavior, mood, and affect are within normal limits. 13:56 Cardiovascular: Rate: tachycardic, actual rate is 112 bpm, Rhythm: regular, Pulses: Pulses are 4+ in bilateral radial, brachial, femoral, popliteal, posterior tibial and and dorsalis pedis arteries.. Heart sounds: normal, Edema: is not appreciated, JVD: is not appreciated, 13:56 ECG was reviewed by the Attending Physician. 13:56 Respiratory: the patient does not display signs of respiratory distress, Respirations: normal, Breath sounds: bronchial sounds, that are mild, are scattered, decreased breath sounds, that are mild, are located in both bases, rhonchi, that are mild, are scattered, stridor, is not appreciated, + upper airway congestion. wheezing: expiratory Respiratory rate: 22 13:56 Abdomen/GI: Inspection: distension, Bowel sounds: active, Palpation: mild abdominal tenderness, in the umbilical area, Liver: no appreciated palpable abnormalities, Hernia: not appreciated, 13:56 Neuro: Orientation: is normal, appropriate for stated age, no acute changes, Mentation: is normal, appropriate for stated age, no acute changes, Memory: is normal, appropriate for stated age, no acute changes, Cranial nerves: grossly normal, is grossly normal based on the patient's age, no acute changes, Cerebellar function: is grossly normal, is grossly normal based on the patient's age, no acute changes, Motor: is normal, is grossly normal based on the patient's age, no acute changes, moves all fours, strength is normal, strength is 5/5 in all extremities, Sensation: no obvious gross deficits, appropriate no acute changes, Gait: not tested. seizure activity, is not displayed by the patient, 16:13 ECG was reviewed by the Attending Physician. [facility] Vital Signs: 12:34 BP 118 / 72; Pulse 123; Resp 20 S; Temp 99.1(O); Pulse Ox 99% on R/A; Weight 136.08 kg aa5 (R); Height 6 ft. 0 in. (R); 13:22 BP 95 / 72; Pulse 112; Resp 18; Pulse Ox 100% on R/A; ph 15:58 BP 109 / 63; Pulse 101; Resp 24; Pulse Ox 97% on 2 lpm NC; jb4 16:19 BP 109 / 63; Pulse 110; Resp 20; Temp 100; Pulse Ox 95% on 2 lpm NC; ph 12:34 Body Mass Index 40.69 (136.08 kg, 182.88 cm) aa5 MDM: 12:33 Medical Screening Exam initiated gonzalo 14:33 Differential diagnosis: viral Infection, bacterial infection, URI, bronchitis, gonzalo pneumonia UTI. Data reviewed: vital signs, nurses notes, EMS record, lab test result(s), EKG, radiologic studies, plain films. Consideration of Admission/Observation Patient was admitted/placed on observation. Escalation of care including admission/observation considered. I considered the following discharge prescriptions or medication management in the emergency department Medications were administered in the Emergency Department. See MAR. Independent interpretation of the following test(s) in the Emergency Department EKG: See my EKG interpretation above. Test considered but Not performed: Ultrasound NO 2 D ECHO. Historians other than the Patient: Family Member: WELL INFORMED. Care significantly affected by the following chronic conditions: Diabetes, Obesity. 09/30 12:34 Order name: Flu; Complete Time: 13:46 gonzalo 09/30 12:34 Order name: SARS RAPID; Complete Time: 13:46 gonzalo 09/30 12:34 Order name: CBC with Diff; Complete Time: 13:46 gonzalo 09/30 12:34 Order name: Comprehensive Metabolic Panel; Complete Time: 13:46 gonzalo 09/30 12:55 Order name: PT-INR; Complete [facility]: [facility]:46 [facility] 09/[facility] 12:55 Order name: Ptt, Activated; Complete Time: 13:46 [facility] 09/30 12:55 Order name: Blood Culture Adult (2) gonzalo 09/30 12:55 Order name: Lactate w/ 2H reflex if indic.; Complete Time: 14:04 [facility] 09/30 14:05 Order name: Troponin High Sensitivity; Complete Time: 15:40 [facility] 09/30 14:05 Order name: BNP; Complete Time: 15:40 [facility] 09/30 12:34 Order name: Chest Pa And Lat (2 Views) XRAY; Complete Time: 17:22 [facility] 09/30 17:10 Order name: CT; Complete Time: 17:22 EDMS 09/30 14:05 Order name: EKG; Complete Time: 14:05 [facility] 09/30 12:55 Order name: IV Saline Lock - Large Bore; Complete Time: 13:16 [facility] 09/30 14:05 Order name: EKG - Nurse/Tech; Complete Time: 16:14 [facility] EC:13 Rate is 101 beats/min. Rhythm is regular. QRS [place] is Normal. WA interval is normal. gonzalo QRS interval is normal. QT interval is normal. No Q waves. T waves are Normal. No ST changes noted. Clinical impression: Sinus tachycardia and No evidence of ischemia. Interpreted by me. Reviewed by me. Administered Medications: 12:56 Not Given (Duplicate Order): ns 0.9% 1000 ml IV at 1 bolus Per protocol; to be given as gonzalo a bolus over 60 minutes 13:16 Drug: NS 0.9% IV (30 ml/kg) 30 ml/kg IV at bolus once; Sepsis Protocol; to be given as aa5 a bolus over 90 minutes Route: IV; Rate: bolus; Site: left antecubital; 14:30 Follow up: Response: No adverse reaction; IV Status: Completed infusion; IV Intake: ph 1000ml 13:16 Drug: Famotidine IVP 20 mg IVP once; dilute with 10 mL 0.9% NaCl; give over 2 minutes aa5 Route: IVP; Site: left antecubital; 16:22 Follow up: Response: No adverse reaction ph 13:45 Drug: Meropenem IV 1 grams IV at per protocol once; (mix in NS 100 mL) Route: IV; Rate: ph per protocol; Site: left antecubital; 14:15 Follow up: Response: No adverse reaction; IV Status: Completed infusion ph 14:16 Drug: Zithromax IVPB 500 mg IVPB once over 1 hrs; mix in 250 mL NS Route: IVPB; Infused ph Over: 1 hrs; Site: left antecubital; 15:20 Follow up: Response: No adverse reaction; IV Status: Completed infusion; IV Intake: ph 250ml 14:16 Drug: Oseltamivir PO 75 mg PO once Route: PO; ph 16:21 Follow up: Response: No adverse reaction ph 14:16 Drug: Acetaminophen PO 1000 mg PO once Route: PO; ph 16:21 Follow up: Response: No adverse reaction ph 14:16 Drug: Solu-CORTEF IVP 100 mg IVP once Route: IVP; Site: left antecubital; ph 16:21 Follow up: Response: No adverse reaction ph 14:49 Drug: Ondansetron IVP 8 mg IVP once; over 2 minutes Route: IVP; Site: left antecubital; ph 16:21 Follow up: Response: No adverse reaction ph 16:59 Drug: levofloxacin IVPB 750 mg 150 ml IVPB once over 90 mins Volume: 150 ml; Route: ph IVPB; Infused Over: 90 mins; Site: left antecubital; 17:00 Follow up: Response: No adverse reaction; IV Status: Infusion continued upon admission ph 17:38 Not Given (Patient Refused): [id number] mg PO once ph Disposition Summary: 09/30/24 14:13 Hospitalization Ordered Notes: Provider: Morro Thurston gonzalo Condition: Fair gonzalo Problem: new gonzalo Symptoms: have improved gonzalo Bed/Room Type: Standard gonzalo Hospitalization Status: Inpatient Admission(09/30/24 16:43) gonzalo Location: Telemetry/MedSurg (Inpatient)(09/30/24 16:43) gonzalo Room Assignment: 416(09/30/24 16:45) jb4 Diagnosis - Fever, unspecified gonzalo - Dehydration gonzalo - Influenza due to identified novel influenza A virus with other respiratory gonzalo manifestations - Obesity, unspecified gonzalo - Pneumonia due to other specified bacteria - BILATERAL MULTIFOCAL gonzalo Forms: - Medication Reconciliation Form gonzalo - SBAR form gonzalo - Leadership Thank You Letter gonzalo Signatures: Dispatcher [employer] EDMS Cam Arellano MD MD cha Calderon, Audri, RN RN aa5 Roe Singh, CSO-C CSO-Liv1 Lina Espinosa, RN RN Cirilo Bang, RN RN jb4 Los Young RN RN ja1 Lucero Paige Corrections: (The following items were deleted from the chart) 12:34 12:34 Chest Pa And Lat (2 Views)+RAD.RAD.BRZ ordered. EDMS EDMS 12:56 12:56 PROTIME (+INR)+COAG.LAB.BRZ ordered. EDMS EDMS 12:56 12:56 PTT, ACTIVATED+COAG.LAB.BRZ ordered. EDMS EDMS 12:56 12:56 BLOOD CULTURE*+BA.LAB.BRZ ordered. EDMS EDMS 12:56 12:56 LACTATE+C.LAB.BRZ ordered. EDMS EDMS 14:35 14:35 Chest For PE Angio+CT.RAD.BRZ ordered. EDMS EDMS 15:17 14:13 gonzalo eb 15:22 15:17 212 eb ja1 15:26 15:22 418 ja1 eb 15:47 15:26 416 eb ja1 16:43 14:13 Observation gonzalo gonzalo 16:43 14:13 Telemetry/MedSurg (observation) gonzalo gonzalo 16:43 15:47 418 ja1 gonzalo 16:45 16:43 gonzalo jb4
[2024-09-30] MEDS ORDERED: ONDANSETRON 4 MG/2 ML VIAL ONE (14:47)
[2024-09-30 15:29] LABS: Troponin High Sensitivity 4.2 pg/mL (<58.9)
--- NOTE | 2024-09-30 15:53 | P.HP ---
Certification for Inpatient Patient admitted to: Inpatient With expected LOS: >2 Midnights Patient will require the following post-hospital care: None Practitioner: I am a practitioner with admitting privileges, knowledge of patient current condition, hospital course, and medical plan of care. Services: Services provided to patient in accordance with Admission requirements found in Title 42 Section 412.3 of the Code of Federal Regulations Patient History Date of Service: 09/30/24 Reason for admission: Influenza, hypoxia History of Present Illness: 34-year-old male with history of Klinefelter syndrome with abdominal wound from a cholecystectomy in July status post debridement on 09/24/2024 presents to the emergency department chief complaint of fever, cough. Patient was recently discharged the hospital on 09/26/2024, reports that since he got home he began having a cough and he has been running low-grade fever since then. Labs in the ER are significant for a white blood cell count of 8.8 hemoglobin of 16.9 sodium 135 creatinine 1.43 glucose 119 lactic acid 1.5 he did test positive for influenza A. Abdominal wound examined, wound bed appears to be healing well. At time of my examination patient's room air saturations were around 86 to 87% after coughing episode. He was placed on nasal cannula and will be admitted for influenza A, hypoxia, abdominal wound. Allergies No Known Allergies Allergy (Verified 06/29/24 02:29) Home Medications: Amox/Clavulanate [Augmentin 875-125 Tab] 875 mg PO BID #20 tab 09/26/24 Cetirizine HCl [Zyrtec] 10 mg PO DAILY #30 tab 09/26/24 Fluconazole [Diflucan] 200 mg PO DAILY #14 tab 09/26/24 Hydrocodone 5/APAP 325 [[place] 5/325*] 1 tab PO Q6H PRN #30 tab 09/26/24 Montelukast [Singulair*] 10 mg PO BEDTIME #30 tab 09/26/24 Mupirocin Oint [Bactroban 2% Ointment] 30 gm TP TID #1 tube 09/26/24 predniSONE [Deltasone] 20 mg PO BID #20 tab 09/26/24 - Past Medical/Surgical History Diabetic: No -: fatty liver disease -: Klinefelter syndrome -: Abdominal wound -: Laparoscopic cholecystectomy Psychosocial/ Personal History: Lives at home with his - Social History Alcohol use: Yes CD- Drugs: No Caffeine use: Yes Place of Residence: Home Review of Systems 10-point ROS is otherwise unremarkable General: Fever, Chills Respiratory: Cough, Shortness of Breath Physical Examination - Physical Exam General: Alert, In no apparent distress, Oriented x3 HEENT: Atraumatic, PERRLA, EOMI Neck: Supple, 2+ carotid pulse no bruit, No LAD Respiratory: Clear to auscultation bilaterally, Normal air movement Cardiovascular: Regular rate/rhythm, Normal S1 S2 Gastrointestinal: Normal bowel sounds, No tenderness Musculoskeletal: No tenderness Integumentary: Other (Nonhealing abdominal wound with mild surrounding erythema) Neurological: Normal speech - Studies Laboratory Data (last 24 hrs) 09/30/24 09/30/24 09/30/24 13:16 13:16 13:16 WBC 8.80 Hgb 16.9 Hct 49.4 H Plt Count 332 PT 13.4 H INR 1.28 APTT 35.4 Sodium 135 L Potassium 3.8 BUN 26 H Creatinine 1.43 H Glucose 119 H Total Bilirubin 0.6 AST 32 ALT 56 Alkaline Phosphatase 70 Microbiology Data (last 24 hrs): 09/30/24 13:15 Nasopharnyx Influenza Type A Antigen Screen - Final 09/30/24 13:15 Nasopharnyx Influenza Type B Antigen Screen - Final Assessment and Plan - Plan Assessment: Influenza A viral illness Hypoxia secondary to above JUANITA Abdominal wound Klinefelter syndrome Plan: Influenza A viral illness Hypoxia secondary to above Continue Tamiflu, supplemental oxygen as needed Daily room air saturations JUANITA CPAP at night from home- Abdominal wound General Surgery consulted Continue damp to dry dressings with Vashe Empiric antibiotics with Zosyn for now General Surgery to see tomorrow Klinefelter syndrome DVT PPX: Lovenox Code status: Full Discharge Plan: Home Plan to discharge in: 72 Hours - Advance Directives Does patient have a Living Will: No Does patient have a Durable POA for Healthcare: No - Code Status/Comfort Care Code Status Assessed: Yes (Full code) Critical Care: No Time Spent Managing Pts Care (In Minutes): 68
[2024-09-30] MEDS ORDERED: Levofloxacin500mg IV 500 MG/100 ML BAG IV ONE (16:50)
--- NOTE | 2024-09-30 17:06 | RAD REPORT ---
EXAMINATION: TWO VIEW CHEST XR CLINICAL INDICATION: Male, 34 years old. [facility] MAIN COUGH Bed: TECHNIQUE: 2 view radiographs of the chest were performed. COMPARISON: 11/05/2019 FINDINGS: The lungs are hypoinflated with central reticular opacities which may relate to superimposition of br onchovascular markings versus bronchial wall thickening. No pneumothorax or sizable effusion. The heart is normal in size. Mediastinal contours are unremarkable. IMPRESSION: Central reticular opacities worse on the left, may reflect reactive airway changes or viral infection .
--- NOTE | 2024-09-30 17:08 | RAD REPORT ---
EXAMINATION: CTA CHEST PE CLINICAL INDICATION: Male, 34 years old. DYSPNEA TECHNIQUE: This examination was performed according to an angiographic protocol with 3D post-processi ng. This involves 3D reconstructions, MIPs, volume rendered images and/or shaded surface rendering. One or more of the following dose reduction techniques were used: Automated exposure control, adjustm ent of the mA and/or kV according to patient size, and/or iterative reconstruction. Unless otherwise specified, incidental findings do not require dedicated imaging follow-up. [id number]. COMPARISON: Same-day chest x-ray FINDINGS: LOWER NECK: Visualized thyroid gland and soft tissues are normal. LUNGS AND AIRWAYS: Patchy mild to moderate multifocal predominantly nodular airspace disease.No domin ant, clinically suspicious pulmonary nodule. PLEURA: Small bilateral pleural effusions. MEDIASTINUM AND LYMPH NODES: Reactive size mediastinal and hilar lymph nodes. THORACIC AORTA: No thoracic aortic aneurysm. PULMONARY ARTERIES: Caliber is within normal limits. No pulmonary emboli identified. HEART: Normal heart size. No coronary calcifications.No significant pericardial effusion. OSSEOUS STRUCTURES AND CHEST WALL: No fracture or suspicious osseous lesions. UPPER ABDOMEN: No acute abnormalities.Hepatomegaly with steatosis. IMPRESSION: No evidence of pulmonary emboli to the subsegmental level. Bilateral nodular airspace disease concern ing for mild to moderate multifocal pneumonia .
[2024-09-30] MEDS ORDERED: ALBUTEROL 2.5 MG/3 ML NEB SOL NEB PRN (17:49)
[2024-09-30] MEDS ORDERED: ONDANSETRON 4 MG/2 ML VIAL IV PRN (17:49)
[2024-09-30] MEDS: ENOXAPARIN 40 MG/0.4 ML SQ SCH (18:00)
[2024-09-30] MEDS: NA CHLORIDE 0.9% 1,000 ML IV SCH (18:17)
[2024-09-30] MEDS: PIPER TAZO 3.375 GM in NA CHLORIDE 0.9% 100 ML IV SCH (19:45)
[2024-09-30] MEDS: BENZONATATE 100 MG CAP PO SCH (20:24)
[2024-09-30] MEDS: OSELTAMIVIR 75 MG CAP PO SCH (20:24)
[2024-09-30] MEDS: GUAIFENESIN 600 MG SA TAB PO SCH (20:24)
[2024-10-01 06:33] LABS: Absolute Lymphocytes (CBC) 0.9 K/uL (0.7-4.9); Absolute Monocytes 0.6 K/uL (0.1-1.3); Absolute Neutrophil 4.2 K/uL (1.8-8.0); Basophils % 0.3 % (0-1.3); Eosinophils % 0.2 % (0-4.4); Hemoglobin 13.8 g/dL (13.6-17.9); Lymphocytes % 15.3 % (15.3-44.8); MCH 30.4 pg (27.0-35.0); MCHC 33.6 g/dL (32.0-36.0); MCV 90.5 fL (80-100); MPV 8.6 fL (7.6-11.3); Neutrophils % 74.2 % (41.7-73.7); Nucleated Red Blood Cells % 0.1 % (0-0); Platelets 247 thou/uL (152-406); RBC Red Blood Cell Count 4.53 M/uL (4.33-5.43); Red Cell Distribution Width 15.2 % (12.1-15.2)
[2024-10-01 06:47] LABS: Anion Gap 8.7 mEq/L (5.0-15.0); Potassium 3.7 mEq/L (3.5-5.1)
[2024-10-01] MEDS: ACETAMINOPHEN 325 MG TABLET PO PRN (06:47)
[2024-10-01] MEDS: POTASSIUM CL SA 10 MEQ TAB PO ONE (08:14)
--- NOTE | 2024-10-01 08:18 | P.CNS ---
Date of Consult: 10/01/24 Chief Complaint: Influenza, hypoxia History of Present Illness: Patient is 74 years of age was just recently discharged on Saturday started coughing running a high fever of some shortness of breath yesterday. In the hospital prior history of pulmonary complaints he developed a rash from doxycycline patient also had abnormal renal function white count normal Allergies No Known Allergies Allergy (Verified 06/29/24 02:29) Home Medications: Amox/Clavulanate [Augmentin 875-125 Tab] 875 mg PO BID #20 tab 09/26/24 Cetirizine HCl [Zyrtec] 10 mg PO DAILY #30 tab 09/26/24 Fluconazole [Diflucan] 200 mg PO DAILY #14 tab 09/26/24 Hydrocodone 5/APAP 325 [[place] 5/325*] 1 tab PO Q6H PRN #30 tab 09/26/24 Montelukast [Singulair*] 10 mg PO BEDTIME #30 tab 09/26/24 Mupirocin Oint [Bactroban 2% Ointment] 30 gm TP TID #1 tube 09/26/24 predniSONE [Deltasone] 20 mg PO BID #20 tab 09/26/24 - Past Medical/Surgical History Diabetic: No -: fatty liver disease -: Klinefelter syndrome -: Abdominal wound -: obstuctive sleep apnea -: Laparoscopic cholecystectomy Psychosocial/ Personal History: Lives at home with his - Social History Smoking Status: Never smoker Alcohol use: Yes CD- Drugs: No Caffeine use: Yes Place of Residence: Home Review of Systems is unable to be obtained Physical Examination Temp Pulse Resp BP Pulse Ox 98.5 F 95 H 18 134/57 L 98 10/01/24 07:26 10/01/24 04:00 10/01/24 04:00 10/01/24 04:00 10/01/24 04:00 General: Unresponsive Respiratory: Clear to auscultation bilaterally, Diminished Cardiovascular: No edema, Regular rate/rhythm, Normal S1 S2 Gastrointestinal: Normal bowel sounds Integumentary: Other (Patient has an extensive rash on his extremities according to the is better) Laboratory Data (last 24 hrs) 09/30/24 09/30/24 09/30/24 13:16 13:16 13:16 WBC 8.80 Hgb 16.9 Hct 49.4 H Plt Count 332 PT 13.4 H INR 1.28 APTT 35.4 Sodium 135 L Potassium 3.8 BUN 26 H Creatinine 1.43 H Glucose 119 H Total Bilirubin 0.6 AST 32 ALT 56 Alkaline Phosphatase 70 - Problems (1) Influenza A H1N1 infection Current Visit: Yes Status: Acute Plan: Patient is 74 years of age admitted with cough fever shortness of breath flu Nelsy a positive labs reviewed normal CBC renal function is improving CT scan shows bilateral patchy infiltrates patient is on 2 L nasal cannula oxygen patient also has CPAP at home history of IV Levaquin see Zosyn cultures are pending patient was sent home on steroids and his rash was improving thought to be allergic reaction with significant eosinophilia
[2024-10-01] MEDS ORDERED: Levofloxacin 750mg IV 750 MG/150 ML BAG IV SCH (09:00)
[2024-10-01] MEDS ORDERED: HYDROCODONE/APAP 5/325 MG TAB PO PRN (09:11)
--- NOTE | 2024-10-01 09:14 | P.PN ---
Date of Service: 10/01/24 Subjective: Spiking fever overnight Still needing nasal cannula oxygen No other acute events overnight ROS: 10 point ROS as noted above, otherwise negative Physical exam GEN: Alert, oriented, NAD HEENT: Normal conjunctiva, sclera anicteric CV: Regular rate and rhythm, no edema Pulm: Nonlabored respirations on nasal cannula ABD: Soft, nontender, nondistended MSK: No joint tenderness Integumentary: Abdominal wound present with dressing in place CDI Neuro: Normal speech, normal affect Vitals reviewed Assessment: Influenza A viral illness/viral pneumonia Acute hypoxic respiratory failure secondary to above JUANITA Abdominal wound Klinefelter syndrome Plan: Influenza A viral illness/viral pneumonia Acute hypoxic respiratory failure secondary to above Continue Tamiflu, supplemental oxygen as needed Daily room air saturations Started on Levaquin by pulmonology Steroids resumed from prior discharge for rash JUANITA CPAP at night from home- Abdominal wound General Surgery consulted Continue damp to dry dressings with Vashe General Surgery will see in hospital Klinefelter syndrome DVT PPX: Lovenox Code status: Full Discharge Plan: Home Plan to discharge in: 72 Hours Time Spent Managing Pts Care (In Minutes): 35
[2024-10-01] MEDS: levoFLOXacin 750 MG TAB PO SCH (10:05)
--- NOTE | 2024-10-01 11:49 | EKG ---
Test Date: 2024-09-30 Test Time: 16:09:27 Assistant Center Director: PH MEASUREMENT RESULTS: Intervals: Rate: 101 NV: 130 QRSD: 82 QT: 344 QTc: 446 [place]: P: 35 NV: 130 QRS: 76 T: 39 INTERPRETIVE STATEMENTS: Sinus tachycardia Inferior infarct, age undetermined Abnormal ECG Compared to ECG 06/29/2024 00:23:28 Sinus bradycardia no longer present Sinus arrhythmia no longer present Myocardial infarct finding still present Electronically Signed On 10-01-24 11:48:31 [employer] by Pranay Payton
--- NOTE | 2024-10-01 14:41 | P.DS ---
Admission Date: 09/30/24 Discharge Date: 10/01/24 Disposition: ROUTINE DISCHARGE Discharge Condition: GOOD Reason for Admission: Influenza, hypoxia Brief History of Present Illness: 34-year-old male with history of Klinefelter syndrome with abdominal wound from a cholecystectomy in July status post debridement on 09/24/2024 presents to the emergency department chief complaint of fever, cough. Patient was recently discharged the hospital on 09/26/2024, reports that since he got home he began having a cough and he has been running low-grade fever since then. Labs in the ER are significant for a white blood cell count of 8.8 hemoglobin of 16.9 sodium 135 creatinine 1.43 glucose 119 lactic acid 1.5 he did test positive for influenza A. Abdominal wound examined, wound bed appears to be healing well. At time of my examination patient's room air saturations were around 86 to 87% after coughing episode. He was placed on nasal cannula and will be admitted for influenza A, hypoxia, abdominal wound. Hospital Course: Assessment: Influenza A viral illness/viral pneumonia Acute hypoxic respiratory failure secondary to above JUANITA Abdominal wound Klinefelter syndrome Patient was admitted to the hospital for influenza A, viral pneumonia, hypoxia. He initially required nasal cannula oxygen and it was anticipated he would require hospitalization for greater than 2 midnights although fortunately his symptoms rapidly improved and he is currently on room air satting around 95% feeling much better after starting Tamiflu and supportive care. Stable for d ischarge and outpatient follow-up at this time with return precautions. At home he has prescriptions for Augmentin, prednisone which he will continue until complete. Will also send prescriptions for Tamiflu, Nick Antunez to his pharmacy [facility] in [place]. Please follow-up with your primary care doctor in 1 to 2 weeks Vital Signs/Physical Exam: Temp Pulse Resp BP Pulse Ox 99.2 F 72 16 116/51 L 95 10/01/24 08:00 10/01/24 08:00 10/01/24 08:00 10/01/24 08:00 10/01/24 08:00 General: Alert, In no apparent distress, Oriented x3 HEENT: Atraumatic, PERRLA Neck: Supple, JVD not distended Respiratory: Clear to auscultation bilaterally, Normal air movement Cardiovascular: Regular rate/rhythm, Normal S1 S2 Gastrointestinal: Normal bowel sounds, No tenderness Musculoskeletal: No tenderness Integumentary: Other (Abdominal wound with packing in place, dressing CDI) Neurological: Normal speech, Normal tone, Normal affect Laboratory Data at Discharge: WBC 5.70 thou/uL (4.3-10.9) 10/01/24 06:04 Hgb 13.8 g/dL (13.6-17.9) D 10/01/24 06:04 Hct 41.0 % (39.6-49.0) 10/01/24 06:04 Plt Count 247 thou/uL (152-406) 10/01/24 06:04 PT 13.4 SECONDS (9.4-12.5) H 09/30/24 13:16 INR 1.28 09/30/24 13:16 APTT 35.4 SECONDS (24.3-36.9) 09/30/24 13:16 Sodium 136 mEq/L (136-145) 10/01/24 06:04 Potassium 3.7 mEq/L (3.5-5.1) 10/01/24 06:04 BUN 24 mg/dL (7-18) H 10/01/24 06:04 Creatinine 1.24 mg/dL (0.70-1.30) 10/01/24 06:04 Glucose 129 mg/dL (74-106) H 10/01/24 06:04 Total Bilirubin 0.6 mg/dL (0.2-1.0) 09/30/24 13:16 AST 32 U/L (15-37) 09/30/24 13:16 ALT 56 U/L (16-61) 09/30/24 13:16 Alkaline Phosphatase 70 U/L (45-117) 09/30/24 13:16 Home Medications: Amox/Clavulanate [Augmentin 875-125 Tab*] 875 mg PO BID #20 tab 09/26/24 Cetirizine HCl [Zyrtec] 10 mg PO DAILY #30 tab 09/26/24 Fluconazole [Diflucan] 200 mg PO DAILY #14 tab 09/26/24 Hydrocodone 5/APAP 325 [[place] 5/325*] 1 tab PO Q6H PRN #30 tab 09/26/24 Montelukast [Singulair*] 10 mg PO BEDTIME #30 tab 01/11/25 Mupirocin Oint [Bactroban 2% Ointment*] 30 gm TP TID #1 tube 09/26/24 predniSONE [Prednisone*] 20 mg PO BID #20 tab 09/26/24 Benzonatate [Tessalon Perle*] 100 mg PO TID PRN #25 cap 10/01/24 Oseltamivir [Tamiflu*] 75 mg PO BID 4 Days #8 cap 10/01/24 New Medications: Oseltamivir [Tamiflu*] 75 mg PO BID 4 Days #8 cap Benzonatate [Tessalon Perle*] 100 mg PO TID PRN #25 cap PRN Reason: Cough Physician Discharge Instructions: Patient was admitted to the hospital for influenza A, viral pneumonia, hypoxia. He initially required nasal cannula oxygen and it was anticipated he would require hospitalization for greater than 2 midnights although fortunately his symptoms rapidly improved and he is currently on room air satting around 95% feeling much better after starting Tamiflu and supportive care. Stable for discharge and outpatient follow-up at this time with return precautions. At home he has prescriptions for Augmentin, prednisone which he will continue until complete. Will also send prescriptions for Tamiflu, Tessalon Perles to his pharmacy [facility] in [place]. Please follow-up with your primary care doctor in 1 to 2 weeks Diet: Regular Activity: Ad bee Followup: Edwin Perales DO [Primary Care Provider] - 1 Week Time spent managing pt's care (in minutes): 35
[2024-10-01] MEDS ORDERED: MONTELUKAST 10 MG TAB PO SCH (21:00)
[2024-10-02 02:22] VITALS: BP 116/51; TEMP 99.2; O2SAT 95; BMI 40.6
[2024-10-02] MEDS ORDERED: FLUCONAZOLE 100 MG TAB PO SCH (09:00)
[2024-10-02] MEDS ORDERED: CETIRIZINE HCL 5 MG TABLET PO SCH (09:00)
[2024-10-02] MEDS ORDERED: predniSONE 20 MG TAB PO SCH (09:00)
== END 2024-10-01 15:00 | disposition home or self-care (01) | DRG 193 ==
LOC: ER 12:29 → ERHOLD 15:11 → 4TH 16:02
PROVIDERS: ADMIT Hospitalist; ATTEND Hospitalist
DX: J10.08 Influenza due to other identified influenza virus with other specified pneumonia (principal); J96.01 Acute respiratory failure with hypoxia; Z68.41 Body mass index [BMI] 40.0-44.9, adult; J12.9 Viral pneumonia, unspecified; E66.9 Obesity, unspecified; E86.0 Dehydration; Q98.4 Klinefelter syndrome, unspecified; G47.33 Obstructive sleep apnea (adult) (pediatric); Z91.048 Other nonmedicinal substance allergy status; Z90.49 Acquired absence of other specified parts of digestive tract; Z79.52 Long term (current) use of systemic steroids; Z79.899 Other long term (current) drug therapy; Z99.89 Dependence on other enabling machines and devices; Z11.52 Encounter for screening for COVID-19
CPT/HCPCS: 36415; 71046; 71275; 80048; 80053; 83605; 83880; 84484; 85025; 85610; 85730; 87040; 87804; 87811; 93005; 96365; 96367; 96375; 99285; J1650; J1720; J2185; J2405; J2543; J7030; J7050; Q9967